=== PATIENT | female | born 1945 | race Caucasian/White ===

== ENCOUNTER 2020-08-20 15:59 | Inpatient (IN) | payer MEDICARE, OTHER ==
[~2020-08-20] VITALS: Ht 170.2 cm; Wt 70.3 kg
--- NOTE | ~2020-08-20 | DS ---
[facility] [address], [place] [address] Draft ADMISSION DATE: 08/21/2020 DISCHARGE DATE: 08/28/2020 REASON FOR ADMISSION: This 75-year-old white woman was evaluated at 04:00 p.m. at [facility] by Dr. Shannon with the onset of sudden lower abdominal pain earlier in the day. Her lactic acid level was elevated to 3.3 with white count of 12.7. A CT scan showed presumed multiple bowel loops with ischemia, possible obstruction, possibly sales representative education courses of an internal hernia or small-bowel volvulus. She is admitted for further evaluation and care. PERTINENT PHYSICAL EXAMINATION: GENERAL: Showed a relatively thin white woman, who was uncomfortable in appearance. Mucous membranes are somewhat dry. Trachea is midline. CHEST: Clear. HEART: Regular, without murmur. ABDOMEN: Scaphoid and nondistended. There is diffuse lower abdominal tenderness. HOSPITAL COURSE: She was immediately given aggressive fluid resuscitation, intravenous antibiotic meropenem and taken directly to operation. She was found to have an adhesive band that would cause torsion of the mesentery of the small bowel with obstruction and ischemia of the small bowel segment that measured more than 3 feet in length. Release of the obstructive adhesion allow for recovery of her bowel. A nasogastric tube that had been placed was removed the following day. She felt markedly better. Nasogastric tube was removed. She was allowed to have liquids, which she had without problem. She was advanced in her diet, but within approximately 24 hours had abdominal distention and vomiting. Abdominal x-ray showed dilated air-filled loops of bowel consistent with ileus. A nasogastric tube ultimately was placed and kept to suction until her bowel recovered. I suspect her issue was that of hyperemic edema of the bowel that had been relieved of obstruction and mesenteric torsion. She was maintained on broad-spectrum antibiotic initially. Ultimately, she had recovery of her bowel function, nasogastric tube able to relieve it and she was begun on a liquid diet and ultimately full and subsequently a solid diet. She began having a fair amount of diarrhea. Stool samples were attempted to be obtained. The empiric treatment with Flagyl seemed to cause decrease of her diarrhea stool. Stool was ultimately sent for assessment, however. By the time of discharge, she is ambulating well, tolerating a regular diet, does not PATIENT NAME: MONROE MILLER DISCHARGE SUMMARY DATE OF : 47 REPORT #: [id number] PHYSICIAN: EMMY DUQUE MD PCP: JESSICA HUTCHINSON REPORT IS CONFIDENTIAL AND NOT TO BE RELEASED WITHOUT AUTHORIZATION [facility] [address], [place] [address] Draft have diarrhea. Has minimal incisional pain managed by a non-opiate medication. She is discharged home in good condition. DISCHARGE MEDICATIONS: 1. Flagyl 250 mg p.o. t.i.d., #20, refill zero. 2. Motrin 600 mg p.o. q.6 h. as needed for pain, #60, no refill. 3. Tylenol 500 mg two tablets p.o. q.6 hours as needed for pain, #60. 4. She will resume her usual medications, which include Pycnogenol 1 cap p.o. daily. 5. Kelp 150 mcg tablet p.o. daily. 6. Potassium gluconate tablet p.o. daily. 7. Vitamin C 1000 mg p.o. daily. 8. Glucosamine chondroitin 1 tablet p.o. daily. 9. Multivitamin one p.o. daily. 10. Tums tablet one p.o. daily. FOLLOWUP PLAN: She is return to see me in approximately a month. She is urged to avoid lifting more than 20 pounds for the next 4 weeks. She will keep Steri-Strips on. She should shower daily. DISCHARGE DIAGNOSIS: 1. Acute abdomen secondary to adhesive band causing internal bowel obstruction with torsion and ischemic bowel, status post emergency laparotomy, relief of obstruction. 2. Postoperative ileus. 3. Postoperative diarrhea as of yet unspecified, suspicion for C difficile, cultures pending. MD HIMA Taylor/JACKYL /[id number] cc: MD Jessica Donnelly PA PATIENT NAME: MONROE MILLER DISCHARGE SUMMARY DATE OF : 47 REPORT #: [id number] PHYSICIAN: EMMY DUQUE MD PCP: JESSICA HUTCHINSON REPORT IS CONFIDENTIAL AND NOT TO BE RELEASED WITHOUT AUTHORIZATION [address] [address] Draft Copies: LUCAS SHANNON MD, LINDA PA ~ PATIENT NAME: MONROE MILLER [place] DISCHARGE SUMMARY DATE OF : 47 REPORT #: [id number] PHYSICIAN: EMMY DUQUE MD PCP: JESSICA HUTCHINSON REPORT IS CONFIDENTIAL AND NOT TO BE RELEASED WITHOUT AUTHORIZATION
--- OUTSIDE RECORDS SUMMARY | ~2020-08-20 | XMS | Encounter Summary ---
Demographics + + + | Address | [address] | | | [place] [address] | + + + | Home Phone | | + + + | Preferred Language | Unknown | + + + | Marital Status | | + + + | Taoist Affiliation | 1069 | + + + | Race | White | + + + | Ethnic Group | Not or | + + + Author + + + | Author | [facility] | | | and [place] | + + + | Organization | [facility] | | | and [place] | + + + | Address | Unknown | + + + | Phone | Unavailable | + + + Support + + + + + | Name | Relationship | Address | Phone | + + + + + | Per Pt None To List | ECON | [id number] | | | | | NA, | | + + + + + | Carmine Bergman | ECON | [address] | | | | | [place] | | | | | [address] | | + + + + + Care Team Providers + +------+ + | Care Construction Coordinator Name | Role | Phone | + +------+ + PCP | Unavailable | + +------+ + Encounter Details +--------+ + + + + | Date | Type | Department | Care Team | Description | +--------+ + + + + | 03/24/ | Hospital | [facility] | Wilfrido Ferro, | | | 2002 | Encounter | MED CTR MP INTRA OP | MD [address] [facility] | | | | | [address] | [place], [place] | | | | | [place], [place] | [address] | | | | | [address] | | | | | | [phone] | | | +--------+ + + + + Social History + +-------+ +--------+------+ | Tobacco Use | Types | Packs/Day | Years | Date | | | | | Used | | + +-------+ +--------+------+ | Never Assessed | | | | | + +-------+ +--------+------+ + + + | Sex Assigned at | Date Recorded | | | | + + + | Not on file | | + + + documented as of this encounter Plan of Treatment Not on filedocumented as of this encounter Visit Diagnoses Not on filedocumented in this encounter"
--- OUTSIDE RECORDS SUMMARY | ~2020-08-20 | XMS | Encounter Summary ---
Demographics + + + | Address | [address] | | | [place] [address] | + + + | Home Phone | | + + + | Preferred Language | Unknown | + + + | Marital Status | | + + + | Pentecostalism Affiliation | 1069 | + + + | Race | White | + + + | Ethnic Group | Not or | + + + Author + + + | Author | [facility] | | | and [place] | + + + | Organization | [facility] | | | and [place] | + + + | Address | Unknown | + + + | Phone | Unavailable | + + + Support + + + + + | Name | Relationship | Address | Phone | + + + + + | Per Pt None To List | ECON | 196008 | | | | | NA, | | + + + + + | Carmine Bergman | ECON | [address] | | | | | [place] | | | | | [address] | | + + + + + Care Team Providers + +------+ + | Care Heel Molder Name | Role | Phone | + +------+ + | No Physician | PCP | Unavailable | + +------+ + Encounter Details +--------+ + + + + | Date | Type | Department | Care Team | Description | +--------+ + + + + | 10/11/ | Orders Only | [facility] | Avinash, Tamar M, | Osteoarthrosis, | | 2012 | | ORTHOPEDIC SURGERY | RN | unspecified whether | | | | [address] [place] | | generalized or | | | | [place], [place] | | localized, pelvic | | | | [address] | | region and thigh | | | | [phone] | | (Primary Dx); Heart | | | | | | murmur; Family | | | | | | history of heart | | | | | | disease in female | | | | | | family member before | | | | | | age 65 | +--------+ + + + + Social [...] Not on filedocumented as of this encounter Results XR Hip Right 1 Vw (10/11/2013 11:47 AM PST) + + | Specimen | + + | | + + + + + | Narrative | Performed At | + + + | [facility] | [place] | | Department [address] [place] [address] | [facility] | | [ rep ct [address]] [ rep [facility] | | st zip] Signed | - IMAGING | | | | | Patient Name: MONROE MILLER Physician: | | | . : 1945 Age: 68 Sex: F Unit #: [id number] | | | Exam Date: 10/11/13 [place] [facility] [place] | | | Report #: [id number] Page: | | | %(RAD)RES..mtdd.print.filter("pg") of %(RAD) | | | RES..mtdd.print.filter("tpg") | | | | | | Accession Number: [id number] | | | RIGHT HIP, 10/11/2013 CLINICAL HISTORY: CALIBRATION | | | STUDY FOR RIGHT HIP ARTHROPLASTY. FINDINGS: A single AP | | | view of the right hip is compared to 09/28/2013. Calibration ball | | | is present. Severe degenerative changes of the right hip are also | | | again demonstrated. There is no change from prior. | | | IMPRESSION: 1. OSTEOARTHRITIS OF THE RIGHT HIP, | | | SIMILAR TO THE PRIOR STUDY. Dictated Date/Time: | | | 10/11/2013 11:47 Transcribed Date/Time: 10/11/2013 12:26 | | | [employer] Processor: <<Signature on File>> | | | | | | Néstor Rust MD10/11/13 1312 <Electronically signed by | | | Néstor Rust MD> Néstor Rust MD 10/11/13 | | | 1147 [employer] Processor: [id number] [email or web address] Ejzgxyssemxel22/19/13 1226 | | | Wilfrido Ferro MD | | + + + + + + + + | Performing | Address | City/State/Zipcode | Phone Number | | Organization | | | | + + + + + | [facility] | [address] | [place] | [phone] | | [facility] | | [address] | | | - IMAGING | | | | + + + + + Basic Metabolic Panel (10/11/2013 10:19 AM PST) + + + + + + | Component | Value | Ref Range | Performed | Pathologist | | | | | At | Signature | + + + + + + | Glucose | 104 | 70 - 109 mg/dL | [facility] | | | | | | [facility] | | | | | | MEDICAL | | | | | | CENTER - | | | | | | LABORATORY | | + + + + + + | Calcium | 9.6 | 8.3 - 10.5 | [facility] | | | | | mg/dL | [facility] | | | | | | MEDICAL | | | | | | CENTER - | | | | | | LABORATORY | | + + + + + + | BUN | 14 | 7 - 18 mg/dL | [facility] | | | | | | [facility] | | | | | | MEDICAL | | | | | | CENTER - | | | | | | LABORATORY | | + + + + + + | Creatinine | 0.62 | 0.60 - 1.30 | [facility] | | | | | mg/dL | [facility] | | | | | | MEDICAL | | | | | | CENTER - | | | | | | LABORATORY | | + + + + + + | Estimated | >60Comment: For | >60 mL/min/A | [facility] | | | GFR | -Americans, | | [facility] | | | | please multiply the | | MEDICAL | | | | result by 1.210 | | CENTER - | | | | This is an estimated GFR | | LABORATORY | | | | and is based on a | | | | | | standard adult | | | | | | body mass (A=1.73m2) and | | | | | | serum creatinine | | | | + + + + + + | BUN/Creatin | 22.6 (H) | 12 - 20 | [facility] | | | ine Ratio | | | [facility] | | | | | | MEDICAL | | | | | | CENTER - | | | | | | LABORATORY | | + + + + + + | Na | 141 | 136 - 149 mEq/L | [facility] | | | | | | [facility] | | | | | | MEDICAL | | | | | | CENTER - | | | | | | LABORATORY | | + + + + + + | K | 4.5 | 3.5 - 5.1 mEq/l | [facility] | | | | | | [facility] | | | | | | MEDICAL | | | | | | CENTER - | | | | | | LABORATORY | | + + + + + + | Cl | 103 | 98 - 109 mEq/l | [facility] | | | | | | [facility] | | | | | | MEDICAL | | | | | | CENTER - | | | | | | LABORATORY | | + + + + + + | CO2 | 31 | 24 - 31 mEq/L | [facility] | | | | | | [facility] | | | | | | MEDICAL | | | | | | CENTER - | | | | | | LABORATORY | | + + + + + + | Anion Gap | 11.5 | 6.0 - 17.0 | [facility] | | | | | | [facility] | | | | | | MEDICAL | | | | | | CENTER - | | | | | | LABORATORY | | + + + + + + + + | Specimen | + + | Blood specimen | | (specimen) | + + + + + + + | Performing | Address | City/[facility]/Zipcode | Phone Number | | Organization | | | | + + + + + | [facility] | [address] | [place] | [phone] | | [facility] | | [address] | | | - LABORATORY | | | | + + + + + | [facility] | [address] | [place] | | | [facility] | | [address], [facility] | | | - LABORATORY | | | | + + + + + CBC with Differential (10/11/2013 10:19 AM PST) + +-------+ + + + | Component | Value | Ref Range | Performed | Pathologist | | | | | At | Signature | + +-------+ + + + | White Blood | 7.0 | 4.0 - 11.0 K/uL | [facility] | | | Cells | | | [facility] | | | | | | MEDICAL | | | | | | CENTER - | | | | | | LABORATORY | | + +-------+ + + + | Red Blood | 4.46 | 3.70 - 5.20 | [facility] | | | Cells | | M/uL | [facility] | | | | | | MEDICAL | | | | | | CENTER - | | | | | | LABORATORY | | + +-------+ + + + | Hemoglobin | 13.7 | 11.5 - 16.0 | [facility] | | | | | gm/dL | [facility] | | | | | | MEDICAL | | | | | | CENTER - | | | | | | LABORATORY | | + +-------+ + + + | Hematocrit | 40.7 | 34.0 - 47.0 % | [facility] | | | | | | [facility] | | | | | | MEDICAL | | | | | | CENTER - | | | | | | LABORATORY | | + +-------+ + + + | MCV | 91.3 | 83.0 - 101.0 fL | [facility] | | | | | | [facility] | | | | | | MEDICAL | | | | | | CENTER - | | | | | | LABORATORY | | + +-------+ + + + | MCH | 30.6 | 28.0 - 35.0 pg | [facility] | | | | | | [facility] | | | | | | MEDICAL | | | | | | CENTER - | | | | | | LABORATORY | | + +-------+ + + + | MCHC | 33.6 | 32.0 - 36.0 | [facility] | | | | | g/dL | [facility] | | | | | | MEDICAL | | | | | | CENTER - | | | | | | LABORATORY | | + +-------+ + + + | RDW-CV | 13.4 | <15.0 % | [facility] | | | | | | [facility] | | | | | | MEDICAL | | | | | | CENTER - | | | | | | LABORATORY | | + +-------+ + + + | Platelet | 191 | 140 - 440 K/uL | [facility] | | | Count | | | [facility] | | | | | | MEDICAL | | | | | | CENTER - | | | | | | LABORATORY | | + +-------+ + + + | % | 66.2 | 45 - 75 % | [facility] | | | Neutrophils | | | [facility] | | | | | | MEDICAL | | | | | | CENTER - | | | | | | LABORATORY | | + +-------+ + + + | % | 26.9 | 20 - 45 % | [facility] | | | Lymphocytes | | | [facility] | | | | | | MEDICAL | | | | | | CENTER - | | | | | | LABORATORY | | + +-------+ + + + | % Monocytes | 4.2 | 4 - 12 % | [facility] | | | | | | [facility] | | | | | | MEDICAL | | | | | | CENTER - | | | | | | LABORATORY | | + +-------+ + + + | % | 1.8 | 0 - 5 % | [facility] | | | Eosinophils | | | [facility] | | | | | | MEDICAL | | | | | | CENTER - | | | | | | LABORATORY | | + +-------+ + + + | % Basophils | 0.9 | 0 - 1 % | [facility] | | | | | | [facility] | | | | | | MEDICAL | | | | | | CENTER - | | | | | | LABORATORY | | + +-------+ + + + | Absolute | 4.6 | 1.5 - 6.6 K/uL | [facility] | | | Neutrophils | | | [facility] | | | | | | MEDICAL | | | | | | CENTER - | | | | | | LABORATORY | | + +-------+ + + + | Absolute | 1.9 | 0.6 - 3.2 K/uL | [facility] | | | Lymphocytes | | | [facility] | | | | | | MEDICAL | | | | | | CENTER - | | | | | | LABORATORY | | + +-------+ + + + | Absolute | 0.3 | 0.0 - 1.0 K/uL | [facility] | | | Monocytes | | | [facility] | | | | | | MEDICAL | | | | | | CENTER - | | | | | | LABORATORY | | + +-------+ + + + | Absolute | 0.1 | 0.0 - 0.4 K/uL | [facility] | | | Eosinophils | | | [facility] | | | | | | MEDICAL | | | | | | CENTER - | | | | | | LABORATORY | | + +-------+ + + + | Absolute | 0.1 | 0.0 - 0.1 K/uL | [facility] | | | Basophils | | | [facility] | | | | | | MEDICAL | | | | | | CENTER - | | | | | | LABORATORY | | + +-------+ + + + + + | Specimen | + + | Blood specimen | | (specimen) | + + + + + + + | Performing | Address | City/State/Zipcode | Phone Number | | Organization | | | | + + + + + | [facility] | [address] | [place] | [phone] | | [facility] | | [address] | | | - LABORATORY | | | | + + + + + | [facility] | [address] | [place] | | | [facility] | | [address], [facility] | | | - LABORATORY | | | | + + + + + documented in this encounter Visit Diagnoses + + | Diagnosis | + + | Osteoarthrosis, unspecified whether generalized or localized, pelvic region and thigh | | - Primary | + + | Heart murmur Undiagnosed cardiac murmurs | + + | Family history of heart disease in female family member before age 65 Family history | | of other cardiovascular diseases | + + documented in this encounter
--- OUTSIDE RECORDS SUMMARY | ~2020-08-20 | XMS | Encounter Summary ---
Demographics + + + | Address | [address] | | | [place] [address] | + + + | Home Phone | | + + + | Preferred Language | Unknown | + + + | Marital Status | | + + + | Amish Affiliation | 1069 | + + + | Race | White | + + + | Ethnic Group | Not or | + + + Author + + + | Author | [facility] | | | and [place] | + + + | Organization | [facility] | | | and [place] | + + + | Address | Unknown | + + + | Phone | Unavailable | + + + Support + + + + + | Name | Relationship | Address | Phone | + + + + + | Per Pt None To List | ECON | [id number] | | | | | NA, | | + + + + + | Carmine Bergman | ECON | [address] | | | | | [place] | | | | | [address] | | + + + + + Care Team Providers + +------+ + | Care Ship'S Carpenter Name | Role | Phone | + +------+ + | No, Physician | PCP | Unavailable | + +------+ + Reason for Visit + + + | Reason | Comments | + + + | Hip Pain | New patient to establish care right hip pain | + + + Evaluate & Treat (Routine) +--------+--------+ + + + + | Status | Reason | Specialty | Diagnoses / | Referred By | Referred To | | | | | Procedures | Contact | Contact | +--------+--------+ + + + + | Closed | | Orthopedic | Diagnoses | Self, | [place], | | | | Surgery | Right hip | Referral, | Wilfrido Roa MD | | | | | pain | MD [facility] | [address] [place] [address] | | | | | | | [place] | | | | | | | [place] [address] | | | | | | | Phone: | | | | | | | [phone] | | | | | | | Fax: | | | | | | | [phone] | +--------+--------+ + + + + Encounter Details +--------+---------+ + + + | Date | Type | Department | Care Team | Description | +--------+---------+ + + + | 09/28/ | Office | [facility] | Wilfrido Ferro, | Right hip pain | | 2012 | Visit | ORTHOPEDIC SURGERY | MD Blane RIVERS | (Primary Dx); | | | | Blane [place] | [place] | Osteoarthritis of | | | | [place] | [id number] | right hip | | | | [address] | | | | | | [phone] | | | +--------+---------+ + + + Social History + +-------+ [...] + + documented as of this encounter Last Filed Vital Signs + + + + + | Vital Sign | Reading | Time Taken | Comments | + + + + + | Blood Pressure | - | - | | + + + + + | Pulse | - | - | | + + + + + | Temperature | 37 C (98.6 F) | 09/28/2013 10:16 AM | | | | | PST | | + + + + + | Respiratory Rate | - | - | | + + + + + | Oxygen Saturation | - | - | | + + + + + | Inhaled Oxygen | - | - | | | Concentration | | | | + + + + + | Weight | 70.8 kg (156 lb) | 09/28/2013 10:16 AM | | | | | PST | | + + + + + | Height | 170.2 cm (5' 7") | 09/28/2013 10:16 AM | | | | | PST | | + + + + + | Body Mass Index | 24.43 | 09/28/2013 10:16 AM | | | | | PST | | + + + + + documented in this encounter Progress Notes Wilfrido Ferro MD - 09/28/2013 12:00 AM PST ORTHOPEDICS [place] [address] FAX: [phone] OFFICE VISIT PATIENT IDENTIFICATION: Paige is a 68-year-old female with the chief complaint of right hip pain. HISTORY OF PRESENT ILLNESS: The patient has had hip pain for a year and a half. She localiz es her pain to the groin, it is weightbearing related, it has been difficult getting out of a chair at times. She has to use her hands to lift her leg. 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 PREVIOUS MEDICAL HISTORY: Significant for no chronic medical problems. MEDICATIONS: Only 1. Ibuprofen. 2. Multivitamin. PREVIOUS SURGERIES: She had right knee arthroscopy in 2001. She had left trigger thumb rele ase in 2002. She had an appendectomy in 1967, hysterectomy in 1986. PRIMARY CARE PHYSICIAN: Evens Simental MD, in [place] FAMILY HISTORY: Father at age 56, liver disease. Mother lived to 85, of unknown cause. She has 3 children, who are healthy. PERSONAL HABITS: Two beers a week, no tobacco. REVIEW OF SYSTEMS EYES: Positive glasses use. EARS, NOSE, THROAT: Negative. RESPIRATORY: Negative. CARDIOVASCULAR: Negative. GASTROINTESTINAL: Negative. GENITOURINARY: Positive night urination. No infections. MUSCULOSKELETAL: As above. SKIN: Negative. NEUROLOGIC: Negative. PSYCHIATRIC: Negative. ENDOCRINE: Negative. CONSTITUTIONAL/SYSTEMIC: Negative. PHYSICAL EXAMINATION VITAL SIGNS: She is 156 pounds, 5 feet 7 inches, BMI 24. EXTREMITIES: She walks with an an talgic gait. Her right hip has about 10 degrees of internal rotation. Attempts at more prov ngozi groin pain. Her leg lengths are equal. She has 5/5 motor strength all muscle groups regina ateral lower extremities. Intact pedal pulses. Intact sensation all dermatomes bilateral lo wer extremities. Her x-ray is reviewed and shows severe and advanced vrtr-ip-wjwa arthrosis of the right hip with subchondral cysts and circumferential osteophytes. DIAGNOSIS: [id number] DEGENERATIVE ARTHRITIS OF THE RIGHT HIP. The natural history and treatment options were discussed at length on today's visit. Total hip arthroplasty, the inherent medical and surgical risks and reasonable expectations for r ecovery were discussed at length today. The different surgical approaches and different uyen ring surfaces were also discussed at length. All questions answered. She very much wishes t o pursue right hip replacement. Wilfrido Ferro MD KW / SHABANA JOB #: [id number] signed by Wilfrido Ferro MD at 09/29/2013 9:05 AM PSTdocumen stephy in this encounter Miscellaneous Notes Miscellaneous - ONBASE SCAN [facility] - 09/28/2013 12:00 AM PST iscellaneous - ONBASE SCAN [facility] - 09/28/2013 12:00 AM PSTEle ctronically signed by Keenan [facility] at 10/03/2013 10:01 AM PSTdocumented in this encounter Plan of Treatment Not on filedocumented as of this encounter Results XR Hip Right 2 + Vw (09/28/2013 11:11 AM PST) + + | Specimen | + + | | + + + + + | Narrative | Performed At | + + + | [facility] | [place] | | [address] [facility] | | [ rep ct street1[address]] [ rep ct [facility] | | st zip] Signed | - IMAGING | | | | | Patient Name: LACY MILLER Physician: | | | . : 1945 Age: 68 Sex: F Unit #: [id number] | | | Exam Date: 09/28/13 Location: [facility] | | | Report #: [id number] Page: | | | %(RAD)RES..mtdd.print.filter("pg") of %(RAD) | | | RES..mtdd.print.filter("tpg") | | | | | | Accession Number: [id number] | | | TWO VIEWS RIGHT HIP CLINICAL HISTORY: HIP PAIN. | | | COMPARISON: None available. FINDINGS: The bones | | | are well mineralized and well aligned. No fracture or dislocation is | | | suspected. The right hip joint is moderately narrowed and | | | demonstrates prominent marginal osteophyte formation. Femoral head | | | contour appears maintained, along with the imaged right sacroiliac | | | joint. A rounded calcification projecting over the imaged right | | | pelvic cavity favors a phlebolith. Soft tissue structures are | | | otherwise unremarkable. IMPRESSION: 1. | | | MODERATE TO SEVERE DEGENERATION OF THE RIGHT HIP. | | | Dictated Date/Time: 09/28/2013 11:11 Transcribed Date/Time: | | | 09/28/2013 11:33 Team Guide: | | | <<Signature on File>> | | | Igor Becerril | | | MD Rodrick09/28/13 2306 <Electronically signed by Igor Mensah MD> | | | Igor Mensah MD 09/28/13 1111 Team Guide: | | | Webmedx [id number]/06/13 1133 Wilfrido Ferro MD | | | | | + + + + + + + + | Performing | Address | City/State/Zipcode | Phone Number | | Organization | | | | + + + + + | [facility] | [address] | [place] | [phone] | | [facility] | | [address] | | | - IMAGING | | | | + + + + + documented in this encounter Visit Diagnoses + + | Diagnosis | + + | Right hip pain - Primary Pain in joint, pelvic region and thigh | + + | Osteoarthritis of right hip Osteoarthrosis, unspecified whether generalized or | | localized, pelvic region and thigh | + + documented in this encounter
--- OUTSIDE RECORDS SUMMARY | ~2020-08-20 | XMS | Encounter Summary ---
Demographics + + + | Address | [address] | | | [place] [address] | + + + | Home Phone | | + + + | Preferred Language | Unknown | + + + | Marital Status | | + + + | Evangelical Affiliation | 1069 | + + + | Race | White | + + + | Ethnic Group | Not or | + + + Author + + + | Author | [facility] | | | and [place] | + + + | Organization | [facility] | | | and [place] | + + + | Address | Unknown | + + + | Phone | Unavailable | + + + Support + + + + + | Name | Relationship | Address | Phone | + + + + + | Per Pt None To List | ECON | [address] | | | | | NA, | | + + + + + | Carmine Bergman | ECON | [address] | | | | | [place] | | | | | [address] | | + + + + + Care Team Providers + +------+ + | Care Aerophysics Engineer Name | Role | Phone | + +------+ + PCP | Unavailable | + +------+ + Encounter Details +--------+ + + + + | Date | Type | Department | Care Team | Description | +--------+ + + + + | 05/12/ | Hospital | [facility] | | | | 1995 | Encounter | MED CTR XRAY [address] | | | | | | [place] | | | | | | [place] [address] | | | | | | [phone] | | | +--------+ + + + [...]
--- OUTSIDE RECORDS SUMMARY | ~2020-08-20 | XMS | Encounter Summary ---
Demographics + + + | Address | [address] | | | [place] [address] | + + + | Home Phone | | + + + | Preferred Language | Unknown | + + + | Marital Status | | + + + | Church Affiliation | 1069 | + + + | Race | White | + + + | Ethnic Group | Not or | + + + Author + + + | Author | [facility] | | | and [place] | [...] Pt None To List | ECON | [address] | | | | | NA, | | + + + + + | Carmine Bergman | ECON | [address] | | | | | [place] | | | | | [address] | | + + + + + Care Team Providers + +------+ + | Care Egg Grader Name | Role | Phone | + +------+ + PCP | Unavailable | + +------+ + Encounter Details +--------+ + + + + | Date | Type | Department | Care Team | Description | +--------+ + + + + | 12/30/ | Hospital | [facility] | Wilfrido Ferro, | | | 2001 | Encounter | MED CTR MP INTRA OP | MD [address] [facility] | | | | | [address] | [place], [place] | | | | | [place], [place] | [address] | | | | | [address] | | | | | | [phone] | | | +--------+ + + + [...]
--- OUTSIDE RECORDS SUMMARY | ~2020-08-20 | XMS | Encounter Summary ---
Demographics + + + | Address | [address] | | | [place] [address] | + + + | Home Phone | | + + + | Preferred Language | Unknown | + + + | Marital Status | | + + + | Yazidism Affiliation | 1069 | + + + | Race | White | + + + | Ethnic Group | Not or | + + + Author + + + | Author | [facility] | | | and [place] | + + + | Organization | [facility] | | | and [place] | + + + | Address | Unknown | + + + | Phone | Unavailable | + + + Support + + + + + | Name | Relationship | Address | Phone | + + + + + | Per Pt None To List | ECON | 613073 | | | | | NA, | | + + + + + | Carmine Bergman | ECON | [address] | | | | | [place] | | | | | [address] | | + + + + + Care Team Providers + +------+ + | Care Oncology Radiation Physician Name | Role | Phone | + +------+ + | Tomas Simental MD | PCP | | + +------+ + Reason for Visit +---------+ + | Reason | Comments | +---------+ + | Post Op | post op right total hip arthroplasty dos: 10/21/2013 *xrays taken | | | today* | +---------+ + Encounter Details +--------+---------+ + + + | Date | Type | Department | Care Team | Description | +--------+---------+ + + + | 12/05/ | Office | [facility] | Wilfrido Ferro, | Hip joint | | 2013 | Visit | ORTHOPEDIC SURGERY | [address] | replacement by other | | | | [address] | [place] | means (Primary Dx) | | | | [place] | [address] | | | | | [address] | | | | | | [phone] | | | +--------+---------+ + + + [...] + + + + | Temperature | - | - | | + + + + + | Respiratory Rate | - | - | | + + + + + | Oxygen Saturation | - | - | | + + + + + | Inhaled Oxygen | - | - | | | Concentration | | | | + + + + + | Weight | 72.1 kg (159 lb) | 12/05/2013 11:31 AM | | | | | PST | | + + + + + | Height | 170.2 cm (5' 7") | 12/05/2013 11:31 AM | | | | | PST | | + + + + + | Body Mass Index | 24.9 | 12/05/2013 11:31 AM | | | | | PST | | + + + + + documented in this encounter Progress Notes Wilfrido Ferro MD - 12/05/2013 12:16 PM PSTPt returns today and is doing excellently s/p right CARO She walks without limp - no cane She has some mild tenderness over the lateral hip to palpation painfree arc of motion xrays excellent alignment and position of components Discussed future followup documented in this encounter Plan of Treatment Not on filedocumented as of this encounter Results XR Pelvis 1 or 2 Vw (12/05/2013 12:21 PM PST) + + | Specimen | + + | | + + + + + | Narrative | Performed At | + + + | [facility] | [place] | | Department [address] [place] | [facility] | | [ rep ct [address]] [ rep ct [facility] | | st zip] Signed | - IMAGING | | | | | Patient Name: MONROE MILLER Tobi Physician: | | | .[birth year] : 1945 Age: 68 Sex: F Unit #: [id number] | | | Exam Date: 12/05/13 [place] [facility] [facility] [place] | | | Report #: [id number] Page: | | | %(RAD)RES..mtdd.print.filter("pg") of %(RAD) | | | RES..mtdd.print.filter("tpg") | | | | | | Accession Number: [id number] | | | PELVIS X-RAY CLINICAL HISTORY: POSTOPERATIVE RIGHT HIP, | | | ARTHROPLASTY. COMPARISON: 10/21/2013. | | | FINDINGS: AP view of the pelvis was obtained. Again | | | visualized is hardware for right hip arthroplasty that remains intact. | | | There are no acute osseous abnormalities. Moderate to advanced | | | degenerative changes are present of the left hip with osteophytosis, | | | subchondral sclerosis and joint space loss. Bone mineralization is | | | normal. IMPRESSION: 1. STABLE RIGHT HIP | | | ARTHROPLASTY. 2. 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 Dictated Date/Time: | | | 12/05/2013 12:21 Transcribed Date/Time: 12/05/2013 13:28 | | | River Transportation Worker: <<Signature on File>> | | | | | | Javier Boles MD12/05/13 2307 <Electronically signed by Javier Boles | | | MD> Javier Boles MD 12/05/13 1221 River [employer] Worker: | | | EXO5 Holnxbjdosccv82/13/14 1328 Wilfrido Ferro MD | | | | | + + + + + + + + | Performing | Address | City/State/Zipcode | Phone Number | | Organization | | | | + + + + + | [facility] | [address] | [place] | [phone] | | [facility] | | [address] | | | - IMAGING | | | | + + + + + documented in this encounter Visit Diagnoses + + | Diagnosis | + + | Hip joint replacement by other means - Primary | + + documented in this encounter
--- OUTSIDE RECORDS SUMMARY | ~2020-08-20 | XMS | Encounter Summary ---
Demographics + + + | Address | [address] | | | [place] [address] | + + + | Home Phone | | + + + | Preferred Language | Unknown | + + + | Marital Status | | + + + | Mu-Ism Affiliation | 1069 | + + + | Race | White | + + + | Ethnic Group | Not or | + + + Author + + + | Author | [facility] | | | and [place] [...] Pt None To List | ECON | [address] | | | | | NA, | | + + + + + | Carmine Bergman | ECON | [address] | | | | | [place] | | | | | [address] | | + + + + + Care Team Providers + +------+ + | Care Fuel Agent Name | Role | Phone | + +------+ + | Tomas Simental MD | PCP | | + +------+ + Reason for Visit + +--------+ + | Reason | Onset | Comments | | | Date | | + +--------+ + | Hip Pain | 07/03/ | Fell | | | 2013 | | + +--------+ + Encounter Details +--------+ + + + + | Date | Type | Department | Care Team | Description | +--------+ + + + + | 07/03/ | Telephone | [facility] | Wilfrido Ferro, | Hip Pain (Fell) | | 2013 | | ORTHOPEDIC SURGERY | [address] | | | | [address] | [place] | | | | | [place] | [address] | | | | | [address] | | | | | | [phone] | | | +--------+ + + + [...] + + documented as of this encounter Miscellaneous Notes Telephone Encounter - Karina Reynolds - 07/05/2014 2:20 PM PDTPatient is scheduled for 07/05/14 at 1300. eleph one Encounter - Leana Kirkland RN - 07/03/2014 2:[address] Ferro elephone Encounter - Leana Kirkland RN - 07/03/2014 2:15 PM PDTPatient called to state she had a Right hip repl acement last year, September 2013, with Dr. Ferro. Last week she fell on her Left hip [place]w ar[place] and now she is having Right Hip/Right Groin Pain. She has been taking ibuprofen for the pain, 2-3 tabs Q 6 hours. She wonders if she needs to come in to see Dr. Ferro regarding this issue. Told patient we would speak to Dr. Ferro when he returns to the office on July 05, we will then call her with instructions. Elec tronically signed by Leana Kirkland RN at 07/03/2014 2:29 PM PDTdocumented in this encounte r Plan of Treatment Not on filedocumented as of this encounter Visit Diagnoses Not on filedocumented in this encounter"
--- OUTSIDE RECORDS SUMMARY | ~2020-08-20 | XMS | Encounter Summary ---
Demographics + + + | Address | [address] | | | [place] [address] | + + + | Home Phone | | + + + | Preferred Language | Unknown | + + + | Marital Status | | + + + | Confucianist Affiliation | 1069 | + + + | Race | White | + + + | Ethnic Group | Not or | + + + Author + + + | Author | [facility] | | | and [place] | + + + | Organization | [facility] | | | and [place] | + + + | Address | Unknown | + + + | Phone | Unavailable | + + + Support + + + + + | Name | Relationship | Address | Phone | + + + + + | Per Pt None To List | ECON | [address] | | | | | NA, | | + + + + + | Carmine Bergman | ECON | [address] | | | | | [place] | | | | | [address] | | + + + + + Care Team Providers + +------+ + | Care Cloth Printing Inspector Name | Role | Phone | + +------+ + PCP | Unavailable | + +------+ + Encounter Details +--------+ + + + + | Date | Type | Department | Care Team | Description | +--------+ + + + + | 11/30/ | Hospital | [facility] | Wilfrido Ferro, | | | 2001 | Encounter | MED CTR XRAY [address] | [address] [facility] | | | | | [place] | [place], [place] | | | | | [place] [address] | [address] | | | | | [phone] | | | +--------+ + + + [...]
--- OUTSIDE RECORDS SUMMARY | ~2020-08-20 | XMS | Encounter Summary ---
Demographics + + + | Address | [address] | | | [place] [address] | + + + | Home Phone [...] + + + | Author | [facility] | | | and [place] | + + + | Organization | [facility] | | | and [place] | + + + | Address | Unknown | + + + | Phone | Unavailable | + + + Support + + + + + | Name | Relationship | Address | Phone | + + + + + | Per Pt None To List | ECON | [id number] | | | | | NA, | | + + + + + | Carmine Bergman | ECON | [address] | | | | | [place] | | | | | [address] | | + + + + + Care Team Providers + +------+ + | Care Engraver Apprentice Decorative Name | Role | Phone | + +------+ + | No, Physician | PCP | Unavailable | + +------+ + Encounter Details +--------+ + + + + | Date | Type | Department | Care Team | Description | +--------+ + + + + | 10/11/ | Hospital | [facility] | Wilfrido Ferro, | Heart murmur; Family | | 2012 | Encounter | MED CTR XRAY [address] | [address] | history of heart | | | | [place] | [place] | disease in female | | | | [place] [address] | [id number] | family member before | | | | [phone] | | age 66; | | | | | | Osteoarthrosis, | | | | | | unspecified whether | | | | | | generalized or | | | | | | localized, pelvic | | | | | | region and thigh | +--------+ + + + + Social [...] + + + | XR HIP RIGHT 1 VW | Routin | 10/11/2013 | Osteoarthrosis, | Results for this | | | e | 11:47 AM | unspecified whether | procedure are in the | | | | PST | generalized or | results section. | | | | | localized, pelvic | | | | | | region and thigh | | + +--------+ + + + | CBC WITH | Routin | 10/11/2013 | | Results for this | | DIFFERENTIAL | e | 10:23 AM | | procedure are in the | | | | PST | | results section. | + +--------+ + + + | BASIC METABOLIC | Routin | 10/11/2013 | | Results for this | | PANEL | e | 10:23 AM | | procedure are in the | | | | PST | | results section. | + +--------+ + + + | CBC WITH | Routin | 10/11/2013 | Heart murmur | Results for this | | DIFFERENTIAL | e | 10:19 AM | Family history of | procedure are in the | | | | PST | heart disease in | results section. | | | | | female family member | | | | | | before age 65 | | + +--------+ + + + | BASIC METABOLIC | Routin | 10/11/2013 | Heart murmur | Results for this | | PANEL | e | 10:19 AM | Family history of | procedure are in the | | | | PST | heart disease in | results section. | | | | | female family member | | | | | | before age 65 | | + +--------+ + + + documented in this encounter Results XR Hip Right 1 Vw (10/11/2013 11:47 AM PST) + + | Specimen | + + | | + + + + + | Narrative | Performed At | + + + | [facility]erg[facility] With [facility] | [place] | | Department [address] [facility] | [facility] | | [ rep ct [address]] [ rep [facility] | | st zip] Signed | - IMAGING | | | | | Patient Name: MONROE MILLER Physician: | | | . : 1945 Age: 68 Sex: F Unit #: [id number] | | | Exam Date: 10/11/13 [place] [facility] [place] | | | Report #: [id number] Page: | | | %(RAD)RES..mtdd.print.filter("pg") of %(RAD) | | | RES..mtdd.print.filter("tpg") | | | | | | Accession Number: [id number] | | | RIGHT HIP, 10/11/2013 CLINICAL [...] Transcribed Date/Time: 10/11/2013 12:26 | | | Stamp Clerk: <<Signature on File>> | | | | | | Néstor Rust MD10/11/13 1312 <Electronically signed by | | | Néstor Rust MD> Néstor Rust MD 10/11/13 | | | 1147 Stamp Clerk: Hmall.ma Iafozffkkkwij45/19/13 1226 | | | Wilfrido Ferro MD | | + + + + + + + + | Performing | Address | City/State/Zipcode | Phone Number | | Organization | | | | + + + + + | [facility] | [address] | [place] | [phone] | | [facility] | | [address] | | | - IMAGING | | | | + + + + + CBC with Differential (10/11/2013 10:23 AM PST) + +-------+ + + + | Component | Value | Ref Range | Performed | Pathologist | | | | | At | Signature | + +-------+ + + + | MANUAL | NO | | [facility] | | | DIFFERENTIA | | | [facility] | | | L ? | | | MEDICAL | | | | | | CENTER - | | | | | | LABORATORY | | + +-------+ + + + | White Blood | 7.0 | 4.0 - 11.0 K/uL | [facility] | | | Cells | | | [facility] | | | | | | MEDICAL | | | | | | CENTER - | | | | | | LABORATORY | | + +-------+ + + + | Red Blood | 4.46 | 3.70 - 5.20 | [facility] | | | Cells | | M/uL | [facility] | | | | | | MEDICAL | | | | | | CENTER - | | | | | | LABORATORY | | + +-------+ + + + | Hemoglobin | 13.7 | 11.5 - 16.0 | [facility] | | | | | gm/dL | [facility] | | | | | | MEDICAL | | | | | | CENTER - | | | | | | LABORATORY | | + +-------+ + + + | Hematocrit | 40.7 | 34.0 - 47.0 % | [facility] | | | | | | [facility] | | | | | | [...] 0.9 | 0 - 1 % | [facility] | | | | | | [facility] | | | | | | MEDICAL | | | | | | CENTER - | | | | | | LABORATORY | | + +-------+ + + + | Absolute | 4.6 | 1.5 - 6.6 K/uL | [facility] | | | Neutrophils | | | [facility] | | | | | | MEDICAL | | | | | | CENTER - | | | | | | LABORATORY | | + +-------+ + + + | Absolute | 1.9 | 0.6 - 3.2 K/uL | [facility] | | | Lymphocytes | | | [facility] | | | | | | MEDICAL | | | | | | CENTER - | | | | | | LABORATORY | | + +-------+ + + + | Absolute | 0.3 | 0.0 - 1.0 K/uL | [facility] | | | Monocytes | | | [facility] | | | | | | MEDICAL | | | | | | CENTER - | | | | | | LABORATORY | | + +-------+ + + + | Absolute | 0.1 | 0.0 - 0.4 K/uL | [facility] | | | Eosinophils | | | [facility] | | | | | | MEDICAL | | | | | | CENTER - | | | | | | LABORATORY | | + +-------+ + + + | Absolute | 0.1 | 0.0 - 0.1 K/uL | [facility] | | | Basophils | | | [facility] | | [...] + | [facility] | [address] | [place] | [phone] | | [facility] | | [address] | | | - LABORATORY | | | | + + + + + | [facility] | [address] | [place] | | | [facility] | | [address] | | | - LABORATORY | | | | + + + + + Basic Metabolic Panel (10/11/2013 10:23 AM PST) + + + + + [...] | | | | mg/dL | [facility] | | | | | | [...] | | | This is an estimated | | LABORATORY | | | | GFR and is based on a | | | | | | standard adult | | | | | | body mass (A=1.73m2) and | | | | | | serum creatinine | | | | + + + + + + | BUN/Creatin | 22.6 (H) | 12 - 20 | [facility] | | | ine Ratio | | | [facility] | | | | | | [...] | 11.5 | 6.0 - 17.0 | [facility] | | | | | | [facility] | | | | | | [...] | + + + + + | [facility] | [address] | [place] | [phone] | | [facility] | | [address] | | | - LABORATORY | | | | + + + + + | [facility] | [address] | [place] | | | [facility] | | [address] | [...] 104 | 70 - 109 mg/dL | [facility] | | | | | | [facility] | | | | | | MEDICAL | | | | | | CENTER - | | | | | | LABORATORY | | + + + + + + | Calcium | 9.6 | 8.3 - 10.5 | [facility] | | | | | mg/dL | [facility] | | | | | | MEDICAL | | | | | | CENTER - | | | | | | LABORATORY | | + + + + + + | BUN | 14 | 7 - 18 mg/dL | [facility] | | | | | | [facility] | | | | | | MEDICAL | | | | | | CENTER - | | | | | | LABORATORY | | + + + + + + | Creatinine | 0.62 | 0.60 - 1.30 | [facility] | | | | | mg/dL | [facility] | | | | | | MEDICAL | | | | | | CENTER - | | | | | | LABORATORY | | + + + + + + | Estimated | >60Comment: For | >60 mL/min/A | [facility] | | | GFR | -Americans, | [...] | ine Ratio | | | [facility] | | | | | | MEDICAL | | | | | | CENTER - | | | | | | LABORATORY | | + + + + + + | Na | 141 | 136 - 149 mEq/L | [facility] | | | | | | [facility] | | | | | | MEDICAL | | | | | | CENTER - | | | | | | LABORATORY | | + + + + + + | K | 4.5 | 3.5 - 5.1 mEq/l | [facility] | | | | | | [facility] | | | | [...] + | [facility] | [address] | [place] | [phone] | | [facility] | | [address] | | | - LABORATORY | | | | + + + + + | [facility] | [address] | [place] | | | [facility] | | [address] [place] [address] | | | - LABORATORY | | [...] | | | Cells | | | [facility] | | | | | | MEDICAL | | | | | | CENTER - | | | | | | LABORATORY | | + +-------+ + + + | Red Blood | 4.46 | 3.70 - 5.20 | [facility] | | | Cells | | M/uL | [facility] | | | | | | MEDICAL | | | | | | CENTER - | | | | | | LABORATORY | | + +-------+ + + + | Hemoglobin | 13.7 | 11.5 - 16.0 | [facility] | | | | | gm/dL | [facility] | | | | [...] | | | Eosinophils | | | [facility] | | | | [...] | | | Neutrophils | | | [facility] | | | | | | MEDICAL | | | | | | CENTER - | | | | | | LABORATORY | | + +-------+ + + + | Absolute | 1.9 | 0.6 - 3.2 K/uL | [facility] | | | Lymphocytes | | | [facility] | | | | | | [...] | | Basophils | | | [facility] | | [...] | + + + + + | [facility] | [address] | [place], [place] | [phone] | | [facility] | | [address] | | | - LABORATORY | | | | + + + + + | [facility] | [address] | [place], [place] | | | [facility] | | [address] [place] [address] | | | - LABORATORY | | | | + + + + + documented in this encounter Visit Diagnoses + + | Diagnosis | + + | Heart murmur Undiagnosed cardiac murmurs | + + | Family history of heart disease in female family member before age 65 Family history | | of other cardiovascular diseases | + + | Osteoarthrosis, unspecified whether generalized or localized, pelvic region and thigh | + + documented in this encounter
--- OUTSIDE RECORDS SUMMARY | ~2020-08-20 | XMS | Encounter Summary ---
Demographics + + + | Address | [address] | | | [place] [address] | + + + | Home Phone | | + + + | Preferred Language | Unknown | + + + | Marital Status | | + + + | Taoist Affiliation | 1069 | + + + | Race | White | + + + | Ethnic Group | Not or | + + + Author + + + | Author | [facility] | | | and [place] | + + + | Organization | [facility] | | | and [place] | + + + | Address | Unknown | + + + | Phone | Unavailable | + + + Support + + + + + | Name | Relationship | Address | Phone | + + + + + | Per Pt None To List | ECON | [address] | | | | | NA, | | + + + + + | Carmine Bergman | ECON | [address] | | | | | [place] | | | | | [address] | | + + + + + Care Team Providers + +------+ + | Care Promotion Officer Name | Role | Phone | + +------+ + | Tomas Simental MD | PCP | | + +------+ + Encounter Details +--------+ + + + + | Date | Type | Department | Care Team | Description | +--------+ + + + + | 07/06/ | Orders Only | [facility] | Wilfrido Ferro, | Other complications | | 2013 | | ORTHOPEDIC SURGERY | [address] | due to internal | | | | [address] [place] | [place] | joint prosthesis | | | | [place] | [phone] | ([facility]) (Primary Dx) | | | | [address] | | | | | | [phone] | | | +--------+ + + + [...] | Procedure Note | + + | Joaquin, Rad Results In - 07/07/2014 1:47 PM PDT [...] + | MISCELLANEOUS LAB | | | [phone] | + +---------+ + + | MISCELANIOUS LAB | | | [phone] | + +---------+ + + documented in this encounter Visit Diagnoses + + | Diagnosis | + + | 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
--- OUTSIDE RECORDS SUMMARY | ~2020-08-20 | XMS | Encounter Summary ---
Demographics + + + | Address | [address] | | | [place] [address] | + + + | Home Phone | | + + + | Preferred Language | Unknown | + + + | Marital Status | | + + + | Nondenominational Affiliation | 1069 | + + + | Race | White | + + + | Ethnic Group | Not or | + + + Author + + + | Author | [facility] | | | and [place] | + + + | Organization | [facility] | | | and [place] | + + + | Address | Unknown | + + + | Phone | Unavailable | + + + Support + + + + + | Name | Relationship | Address | Phone | + + + + + | Per Pt None To List | ECON | [id number] | | | | | NA, | | + + + + + | Carmine Bergman | ECON | [address] | | | | | [place] | | | | | [address] | | + + + + + Care Team Providers + +------+ + | Care Yarn Handler Name | Role | Phone | + +------+ + | No, Physician | PCP | Unavailable | + +------+ + Encounter Details +--------+ + + + + | Date | Type | Department | Care Team | Description | +--------+ + + + + | 09/28/ | Hospital | [facility] | Wilfrido Ferro, | Right hip pain | | 2013 | Encounter | MED CTR XRAY [address] | [address] [facility] | | | | | [place] | [place], [place] | | | | | [place] [address] | [address] | | | | | [phone] | | | +--------+ + + + [...] RIGHT 2 + VW | Routin | 09/28/2013 | Right hip pain | Results for this | | | e | 11:11 AM | | procedure are in the | | | | PST | | results section. | + +--------+ + + + documented in this encounter Results XR Hip Right 2 + Vw (09/28/2013 11:11 AM PST) + + | Specimen | + + | | + + + + + | Narrative | Performed At | + + + | [facility] | [place] | | Department [address] [place] [address] | [facility] | | [ rep ct street1+2] [ rep ct [facility] | | st zip] Signed | - IMAGING | | | | | Patient Name: LACY MILLER Physician: | | | WILL. : 1945 Age: 68 Sex: F Unit #: [id number] | | | Exam Date: 09/28/13 [place] [facility] [place] | | | Report #: [id number] Page: | | | %(RAD)RES..mtdd.print.filter("pg") of %(RAD) | | | RES..mtdd.print.filter("tpg") | | | | | | Accession Number: [id number] | | | TWO VIEWS RIGHT HIP [...] Transcribed Date/Time: | | | 09/28/2013 11:33 Safety And Security Officer: MCKENZIE | | | <<Signature on File>> | | | Igor Becerril | | Mindi Mensah MD09/28/13 2306 <Electronically signed by Igor Mensah MD> | | | Igor Mensah MD 09/28/13 1111 Safety And Security Officer: | | | MexxBooksmedx Hyytedtypbfmh10/06/13 1133 Wilfrido Ferro MD | | | | | + + + + + + + + | Performing | Address | City/State/Zipcode | Phone Number | | Organization | | | | + + + + + | [facility] | [address] | [place] | [phone] | | [facility] | | [address] | | | - IMAGING | | | | + + + + + documented in this encounter Visit Diagnoses + + | Diagnosis | + + | Right hip pain Pain in joint, pelvic region and thigh | + + documented in this encounter
--- OUTSIDE RECORDS SUMMARY | ~2020-08-20 | XMS | Encounter Summary ---
Demographics + + + | Address | [address] | | | [place] [address] | + + + | Home Phone | | + + + | Preferred Language | Unknown | + + + | Marital Status | | + + + | Judaism Affiliation | 1069 | + + + | Race | White | + + + | Ethnic Group | Not or | + + + Author + + + | Author | [facility] | | | and [place] | + + + | Organization | [facility] [place] | | | and [place] | + + + | Address | Unknown | + + + | Phone | Unavailable | + + + Support + + + + + | Name | Relationship | Address | Phone | + + + + + | Per Pt None To List | ECON | 217387 | | | | | NA, | | + + + + + | Carmine Bergman | ECON | [address] | | | | | [place] | | | | | [address] | | + + + + + Care Team Providers + +------+ + | Care Game Agent Name | Role | Phone | + +------+ + | Tomas Simental MD | PCP | | + +------+ + Reason for Visit + + + | Reason | Comments | + + + | Hip Pain | Follow Up Right Hip Groin Pain DOS: 09/2013 *XRAY* | + + + Encounter Details +--------+---------+ + + + | Date | Type | Department | Care Team | Description | +--------+---------+ + + + | 07/07/ | Office | [facility] | Wilfrido Ferro, | S/P total hip | | 2013 | Visit | ORTHOPEDIC SURGERY | [address] | arthroplasty | | | | [address] | [place] | (Primary Dx) | | | | [place] | [address] | | | | | [address] | | | | | | [phone] | | | +--------+---------+ + + + [...] encounter Progress Notes Wilfrido Ferro MD - 07/07/2014 4:32 PM PDTPatient is status post right total knee arthro plasty last September She has done very well over time however last week she took a fall landing on her left side She started having right-sided hip pain It was bad enough that she was worried she broke something She used a walker for awhile She is much better now On exam she is walking without limp painfree arc of motion No trochanteric tenderness Leg lengths good xrays show excellent alignment and position of components No fractures Pt is given reassurance today I anticipate continued improvement over time Will return next routine total hip follow up documented in this encounter Plan of Treatment Not on filedocumented as of this encounter Visit Diagnoses + + | Diagnosis | + + | S/P total hip arthroplasty - Primary Hip joint replacement by other means | + + documented in this encounter
--- OUTSIDE RECORDS SUMMARY | ~2020-08-20 | XMS | Encounter Summary ---
Demographics + + + | Address | [address] | | | [place] [address] | + + + | Home Phone | | + + + | Preferred Language | Unknown | + + + | Marital Status | | + + + | Voodoo Affiliation | 1069 | + + + | Race | White | + + + | Ethnic Group | Not or | + + + Author + + + | Author | [facility] | | | and [place] | [...] Pt None To List | ECON | 657633 | | | | | NA, | | + + + + + | Carmine Bergman | ECON | [address] | | | | | [place] | | | | | [address] | | + + + + + Care Team Providers + +------+ + | Care Heating And Ventilation Engineer Name | Role | Phone | + +------+ + PCP | Unavailable | + +------+ + Encounter Details +--------+ + + + + | Date | Type | Department | Care Team | Description | +--------+ + + + + | 12/03/ | Hospital | [facility] | Wilfrido Ferro, | | | 2001 | Encounter | MED CTR XRAY [address] | [address] [facility] | | | | | [place] | [place], [place] | | | | | [place] [address] | [address] | | | | | [phone] | | | +--------+ + + + [...]
--- OUTSIDE RECORDS SUMMARY | ~2020-08-20 | XMS | Encounter Summary ---
Demographics + + + | Address | [address] | | | [place] [address] | + + + | Home Phone | | + + + | Preferred Language | Unknown | + + + | Marital Status | | + + + | Presybeterian Affiliation | 1069 | + + + | Race | White | + + + | Ethnic Group | Not or | + + + Author + + + | Author | [facility] | | | and [place] | + + + | Organization | [facility] | | | and [place] | + + + | Address | Unknown | + + + | Phone | Unavailable | + + + Support + + + + + | Name | Relationship | Address | Phone | + + + + + | Per Pt None To List | ECON | [address] | | | | | NA, | | + + + + + | Carmine Bergman | ECON | [address] | | | | | [place] | | | | | [address] | | + + + + + Care Team Providers + +------+ + | Care Restaurant Area Manager Name | Role | Phone | + +------+ + PCP | Unavailable | + +------+ + Encounter Details +--------+ + + + + | Date | Type | Department | Care Team | Description | +--------+ + + + + | 12/03/ | Hospital | [facility] | Wilfrido Ferro, | | | 2001 | Encounter | MED CTR XRAY [address] | [address] [facility] | | | | | [place] | [place], [place] | | | | | [place] [address] | [address] | | | | | [phone] | | | +--------+ + + + [...]
--- OUTSIDE RECORDS SUMMARY | ~2020-08-20 | XMS | Encounter Summary ---
Demographics + + + | Address | [address] | | | [place] [address] | + + + | Home Phone | | + + + | Preferred Language | Unknown | + + + | Marital Status | | + + + | Samaritan Affiliation | 1069 | + + + | Race | White | + + + | Ethnic Group | Not or | + + + Author + + + | Author | [facility] | | | and [place] | + + + | Organization | [facility] | | | and [place] | + + + | Address | Unknown | + + + | Phone | Unavailable | + + + Support + + + + + | Name | Relationship | Address | Phone | + + + + + | Per Pt None To List | ECON | [address] | | | | | NA, | | + + + + + | Carmine Bergman | ECON | [address] | | | | | [place] | | | | | [address] | | + + + + + Care Team Providers + +------+ + | Care Sales Engagement Manager Name | Role | Phone | + +------+ + PCP | Unavailable | + +------+ + Encounter Details +--------+ + + + + | Date | Type | Department | Care Team | Description | +--------+ + + + + | 11/30/ | Hospital | [facility] | Wilfrido Ferro, | | | 2001 | Encounter | MED CTR XRAY [address] | [address] [facility] | | | | | [place] | [place], [place] | | | | | [place] [address] | [address] | | | | | [phone] | | | +--------+ + + + [...]
--- OUTSIDE RECORDS SUMMARY | ~2020-08-20 | XMS | Encounter Summary ---
Demographics + + + | Address | [address] | | | [place] [address] | + + + | Home Phone [...] | Author | [facility] | | | and [place] | + + + | Organization | [facility] [place] | | | and [place] | + + + | Address | Unknown | + + + | Phone | Unavailable | + + + Support + + + + + | Name | Relationship | Address | Phone | + + + + + | Per Pt None To List | ECON | 6[address] | | | | | NA, | | + + + + + | Carmine Bergman | ECON | [address] | | | | | [place] | | | | | [address] | | + + + + + Care Team Providers + +------+ + | Care Tool Tender Name | Role | Phone | + [...] + | 07/03/ | Telephone | [facility] | Wilfrido Ferro, | Hip Pain ([place]) | | 2013 | | ORTHOPEDIC SURGERY | [address] | | | | [address] | [place] | | | | | [place] | [address] | | | | | [address] | | | | | | [phone] | | | +--------+ + + + [...]
--- OUTSIDE RECORDS SUMMARY | ~2020-08-20 | XMS | Encounter Summary ---
Demographics + + + | Address | [address] | | | [place] [address] | + + + | Home Phone | | + + + | Preferred Language | Unknown | + + + | Marital Status | | + + + | Tenriism Affiliation | 1069 | + + + | Race | White | + + + | Ethnic Group | Not or | + + + Author + + + | Author | [facility] | | | and [place] | + + + | Organization | [facility] | | | and [place] | + + + | Address | Unknown | + + + | Phone | Unavailable | + + + Support + + + + + | Name | Relationship | Address | Phone | + + + + + | Per Pt None To List | ECON | [address] | | | | | NA, | | + + + + + | Carmine Bergman | ECON | [address] | | | | | [place] | | | | | [address] | | + + + + + Care Team Providers + +------+ + | Care Parking Lot Attendant And Cashier Name | Role | Phone | + +------+ + | Tomas Simental MD | PCP | | + +------+ + Encounter Details +--------+ + + + + | Date | Type | Department | Care Team | Description | +--------+ + + + + | 12/05/ | Hospital | [facility] | Wilfrido Ferro, | Hip joint | | 2013 | Encounter | MED CTR XRAY [address] | [address] | replacement by other | | | | [place] | [place] | means | | | | [place] [address] | [id number] | | | | | [phone] | | | +--------+ + + + [...] + +--------+ + + + | XR PELVIS 1 OR 2 VW | Routin | 12/05/2013 | Hip joint | Results for this | | | e | 12:21 PM | replacement by other | procedure are in the | | | | PST | means | results section. | + +--------+ + + + documented in this encounter Results XR Pelvis 1 or 2 Vw (12/05/2013 12:21 PM PST) + + | Specimen | + + | | + + + + + | Narrative | Performed At | + + + | [facility] | PONTIAC | | Department [address], [place] | [facility] | | [ rep [address]] [ rep [facility] | | st zip] Signed | - IMAGING | | | | | Patient Name: MONROE MILLER Physician: | | | . : 1945 Age: 68 Sex: F Unit #: [id number] | | | Exam Date: 12/05/13 Location: [facility] | | | Report #: [id number] Page: | | | %(RAD)RES..mtdd.print.filter("pg") of %(RAD) | | | RES..mtdd.print.filter("tpg") | | | | | | Accession Number: [id number] | | | PELVIS X-RAY CLINICAL HISTORY: [...] Transcribed Date/Time: 12/05/2013 13:28 | | | Side Panel Padder: <<Signature on File>> | | | | | | Javier Boles MD12/05/13 2307 <Electronically signed by Javier Boles | | | MD> Javier Boles MD 12/05/13 1221 Side Panel Padder: | | | [employer] Jitjcnkqsifgk55/13/14 1328 Wilfrido Ferro MD | | | | | + + + + + + + + | Performing | Address | City/State/Zipcode | Phone Number | | Organization | | | | + + + + + | [address] | [address] | [place] | [phone] | | [facility] | | [address] | | | - IMAGING | | | | + + + + + documented in this encounter Visit Diagnoses + + | Diagnosis | + + | Hip joint replacement by other means | + + documented in this encounter
--- OUTSIDE RECORDS SUMMARY | ~2020-08-20 | XMS | Clinical Summary ---
Demographics + + + | Address | [address] | | | [place] [address] | + + + | Home Phone | | + + + | Preferred Language | Unknown | + + + | Marital Status | | + + + | Hindu Affiliation | 1069 | + + + | Race | White | + + + | Ethnic Group | Not or | + + + Author + + + | Author | [facility] | | | and [place] | + + + | Organization | [facility] [place] | | | and [place] | + + + | Address | Unknown | + + + | Phone | Unavailable | + + + Support + + + + + | Name | Relationship | Address | Phone | + + + + + | Per Pt None To List | ECON | [address] | | | | | NA, | | + + + + + | Carmine Bergman | ECON | [address] | | | | | [place] | | | | | [address] | | + + + + + Care Team Providers + +------+ + | Care Pneumatic Tool Operator Name | Role | Phone | + [...] +--------+ +---------+--------+ | MEDICARE | MEDICA | [id number] | 03/23/20 | [phone] | | Medica | | | RE | | 11-Pre | 5 | | re | | | PART A | | sent | | | | | | AND B | | | | | | + +--------+ +--------+ +---------+--------+ | [employer] | TRANSA | [id number] | | | | Indemn | | [...] Person | Self | [birth year] | [address] | | | al/Fam | | 1945 | [phone] | [place] | | | [place] | | | 9 (Home) | [address] | + +--------+ +--------+ + + | Lacy Gibson | Third | Self | [birth year] | | [address] | | | Alliance Party | | 1945 | [phone] | [place] | | | [place] | | | 9 (Home) | [address] | | | ity | | | | | + +--------+ +--------+ + + Advance Directives + + + + + | Type | Date Recorded | Patient | Explanation | | | | Manager Collection | | + + + + + | Power of | | | | | Certified Pathology Assistant | | | | + + + + + | Advance | 07/07/2014 12:38 | | | | Directive | PM | | | + + + + +
--- OUTSIDE RECORDS SUMMARY | ~2020-08-20 | XMS | Encounter Summary ---
Demographics + + + | Address | [address] | | | [place] [address] | + + + | Home Phone | | + + + | Preferred Language | Unknown | + + + | Marital Status | | + + + | Amish Affiliation | 1069 | + + + | Race | White | + + + | Ethnic Group | Not or | + + + Author + + + | Author | [facility] | | | and [place] | + + + | Organization | [facility] | | | and [place] | + + + | Address | Unknown | + + + | Phone | Unavailable | + + + Support + + + + + | Name | Relationship | Address | Phone | + + + + + | Per Pt None To List | ECON | [address] | | | | | NA, | | + + + + + | Carmine Bergman | ECON | [address] | | | | | [place] | | | | | [address] | | + + + + + Care Team Providers + +------+ + | Care Fundraising Consultant Name | Role | Phone | + +------+ + | Tomas Simental MD | PCP | | + +------+ + Encounter Details +--------+ + + + + | Date | Type | Department | Care Team | Description | +--------+ + + + + | 07/07/ | Hospital | 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
--- OUTSIDE RECORDS SUMMARY | ~2020-08-20 | XMS | Encounter Summary ---
Demographics + + + | Address | [address] | | | [place] [address] | + + + | Home Phone | | + + + | Preferred Language | Unknown | + + + | Marital Status | | + + + | Jewish Affiliation | 1069 | + + + | Race | White | + + + | Ethnic Group | Not or | + + + Author + + + | Author | [facility] | | | and [place] | + + + | Organization | [facility] | | | and [place] | + + + | Address | Unknown | + + + | Phone | Unavailable | + + + Support + + + + + | Name | Relationship | Address | Phone | + + + + + | Per Pt None To List | ECON | [address] | | | | | NA, | | + + + + + | Carmine Bergman | ECON | [address] | | | | | [place] | | | | | [address] | | + + + + + Care Team Providers + +------+ + | Care Head Teacher Name | Role | Phone | + +------+ + PCP | Unavailable | + +------+ + Encounter Details +--------+ + + + + | Date | Type | Department | Care Team | Description | +--------+ + + + + | 05/12/ | Hospital | [facility] | | | | 1995 | Encounter | MED CTR XRAY [address] | | | | | | [place] | | | | | | [place] [address] | | | | | | [phone] | | | +--------+ + + + [...]
--- OUTSIDE RECORDS SUMMARY | ~2020-08-20 | XMS | Encounter Summary ---
Demographics + + + | Address | [address] | | | [place] [address] | + + + | Home Phone | | + + + | Preferred Language | Unknown | + + + | Marital Status | | + + + | Alevism Affiliation | 1069 | + + + | Race | White | + + + | Ethnic Group | Not or | + + + Author + + + | Author | [facility] | | | and [place] | + + + | Organization | [facility] | | | and [place] | + + + | Address | Unknown | + + + | Phone | Unavailable | + + + Support + + + + + | Name | Relationship | Address | Phone | + + + + + | Per Pt None To List | ECON | [address] | | | | | NA, | | + + + + + | Carmine Bergman | ECON | [address] | | | | | [place] | | | | | [address] | | + + + + + Care Team Providers + +------+ + | Care Master Ocean Yacht Name | Role | Phone | + +------+ + | Tomas Simental MD | PCP | | + +------+ + Encounter Details +--------+ + + + + | Date | Type | Department | Care Team | Description | +--------+ + + + + | 12/05/ | Hospital | [facility] | Wilfrido Ferro, | Hip joint | | 2013 | Encounter | MED CTR XRAY [address] | [address] | replacement by other | | | | [place] | [place] | means | | | | [place] [address] | [id number] | | | | | [phone] | | | +--------+ + + + [...] Performed At | + + + | [facility] | [place] | | Department [address], [place] | [facility] | | [ rep [address]] [ rep [facility] | | st zip] Signed | - IMAGING | | | | | Patient Name: MONROE MILLER Physician: | | | . : 1945 Age: 68 Sex: F Unit #: [id number] | | | Exam Date: 12/05/13 Location: [facility] | | | Report #: [id number] Page: | | | %(RAD)RES..mtdd.print.filter("pg") of %(RAD) | | | RES..mtdd.print.filter("tpg") | | | | | | Accession Number: [id number] | | | PELVIS X-RAY CLINICAL HISTORY: [...] Transcribed Date/Time: 12/05/2013 13:28 | | | Bagging Salvager: <<Signature on File>> | | | | | | Javier Boles MD12/05/13 2307 <Electronically signed by Javier Boles | | | MD> Javier Boles MD 12/05/13 1221 Bagging Salvager: | | | [employer] Uorfiwrlitjvg83/13/14 1328 Wilfrido Ferro MD | | | | | + + + + + + + + | Performing | Address | City/State/Zipcode | Phone Number | | Organization | | | | + + + + + | [address] | [address] | [place] | [phone] | | [facility] | | [address] | | | - IMAGING | | | | + + + + + documented in this encounter Visit Diagnoses + + | Diagnosis | + + | Hip joint replacement by other means | + + documented in this encounter
--- OUTSIDE RECORDS SUMMARY | ~2020-08-20 | XMS | Encounter Summary ---
Demographics + + + | Address | [address] | | | [place] [address] | + + + | Home Phone | | + + + | Preferred Language | Unknown | + + + | Marital Status | | + + + | Zoroastrian Affiliation | 1069 | + + + | Race | White | + + + | Ethnic Group | Not or | + + + Author + + + | Author | [facility] | | | and [place] | + + + | Organization | [facility] | | | and [place] | + + + | Address | Unknown | + + + | Phone | Unavailable | + + + Support + + + + + | Name | Relationship | Address | Phone | + + + + + | Per Pt None To List | ECON | [address] | | | | | NA, | | + + + + + | Carmine Bergman | ECON | [address] | | | | | [place] | | | | | [address] | | + + + + + Care Team Providers + +------+ + | Care School Janitor Name | Role | Phone | + [...] + + | 07/07/ | Office | [facility] | Wilfrido Ferro, | S/P total hip | | 2013 | Visit | ORTHOPEDIC SURGERY | [address] | arthroplasty | | | | [address] | [place] | (Primary Dx) | | | | [place] | [address] | | | | | [address] | | | | | | [phone] | | | +--------+---------+ + + + [...]
--- OUTSIDE RECORDS SUMMARY | ~2020-08-20 | XMS | Clinical Summary ---
Demographics + + + | Address | [address] | | | [place] [address] | + + + | Home Phone | | + + + | Preferred Language | Unknown | + + + | Marital Status | | + + + | Gnosticism Affiliation | 1069 | + + + | Race | White | + + + | Ethnic Group | Not or | + + + Author + + + | Author | [facility] | | | and [place] | + + + | Organization | [facility] | | | and [place] | + + + | Address | Unknown | + + + | Phone | Unavailable | + + + Support + + + + + | Name | Relationship | Address | Phone | + + + + + | Per Pt None To List | ECON | [address] | | | | | NA, | | + + + + + | Carmine Bergman | ECON | [address] | | | | | [place] | | | | | [address] | | + + + + + Care Team Providers + +------+ + | Care Promotions Assistant Name | Role | Phone | + [...] +--------+ +---------+--------+ | MEDICARE | MEDICA | [id number] | 03/23/20 | [phone] | | Medica | | | RE | | 11-Pre | 5 | | re | | | PART A | | sent | | | | | | AND B | | | | | | + +--------+ +--------+ +---------+--------+ | [employer] | TRANSA | [id number] | | | | Indemn | | [...] Person | Self | [birth year] | | [address] | | | al/Fam | | 1945 | [phone] | [place], [place] | | | [place] | | | 9 (Home) | [address] | + +--------+ +--------+ + + | Lacy Gibson | Third | Self | [birth year] | | [address] | | | Libertarian | | 1945 | [phone] | [place] [place], [place] | | | [place] | | | 9 (Home) | [address] | | | ity | | | | | + +--------+ +--------+ + + Advance Directives + + + + + | Type | Date Recorded | Patient | Explanation | | | | Reserves Clerk | | + + + + + | Power of | | | | | Manager Of Regulatory Affairs | | | | + + + + + | Advance | 07/07/2014 12:38 | | | | Directive | PM | | | + + + + +
--- OUTSIDE RECORDS SUMMARY | ~2020-08-20 | XMS | Encounter Summary ---
Demographics + + + | Address | [address] | | | [place] [address] | + + + | Home Phone [...] Author | [facility] | | | and [...] Pt None To List | ECON | [id number] | | | | | NA, | | + + + + + | Carmine Bergman | ECON | [address] | | | | | [place] | | | | | [address] | | + + + + + Care Team Providers + +------+ + | Care Protective Services Case Worker Name | Role | Phone | + [...] unspecified whether | | | | [address] [place] | | generalized or | | | | [place], [place] | | localized, pelvic | | | | [address] | | region and thigh | | | | [phone] | | (Primary Dx); Heart | | [...] Performed At | + + + | [facility] | [place] | | Department [address] [place] [address] | [facility] | | [ rep [address]] [ rep [facility] | | st zip] Signed | - IMAGING | | | | | Patient Name: MONROE MILLER Physician: | | | . : 1945 Age: 68 Sex: F Unit #: [id number] | | | Exam Date: 10/11/13 Location: [facility] | | | Report #: [id number] Page: | | | %(RAD)RES..mtdd.print.filter("pg") of %(RAD) | | | RES..mtdd.print.filter("tpg") | | | | | | Accession Number: [id number] | | | RIGHT HIP, 10/11/2013 CLINICAL [...] Transcribed Date/Time: 10/11/2013 12:26 | | | Lay Out Former: <<Signature on File>> | | | | | | Néstor Rust MD10/11/13 1312 <Electronically signed by | | | Néstor Rust MD> Néstor Rust MD 10/11/13 | | | 1147 Lay Out Former: Choisr Acddyvknlnxwt67/19/13 1226 | | | Wilfrido Ferro MD | | + + + + + + + + | Performing | Address | City/State/Zipcode | Phone Number | | Organization | | | | + + + + + | [facility] | [address] | [place] | [phone] | | [facility] | | [address] | | | - IMAGING | | [...] + + | Performing | Address | City/[facility]/Zipcode | Phone Number | | Organization | | | | + + + + + | [facility] | [address] | [place] | [phone] | | [facility] | | [address] | | | - LABORATORY | | | | + + + + + | [facility] | [address] | [place] | | | [facility] | | [address], [facility] | | | - LABORATORY | | [...] | | | Cells | | | [facility] | | | | | | MEDICAL | | | | | | CENTER - | | | | | | LABORATORY | | + +-------+ + + + | Red Blood | 4.46 | 3.70 - 5.20 | [facility] | | | Cells | | M/uL | [facility] | | | | | | MEDICAL [...] | | Basophils | | | [facility] | | | | | | MEDICAL [...] + | [facility] | [address] | [place] | [phone] | | [facility] | | [address] | | | - LABORATORY | | | | + + + + + | [facility] | [address] | [place] | | | [facility] | | [address], [facility] | | | - LABORATORY | | [...]
--- OUTSIDE RECORDS SUMMARY | ~2020-08-20 | XMS | Encounter Summary ---
Demographics + + + | Address | [address] [address] | | | [place] [address] | + + + | Home Phone | | + + + | Preferred Language | Unknown | + + + | Marital Status | | + + + | Temple Affiliation | 1069 | + + + | Race | White | + + + | Ethnic Group | Not or | + + + Author + + + | Author | [facility] | | | and [place] | + + + | Organization | [facility] | | | and [place] | + + + | Address | Unknown | + + + | Phone | Unavailable | + + + Support + + + + + | Name | Relationship | Address | Phone | + + + + + | Per Pt None To List | ECON | [address] | | | | | NA, | | + + + + + | Carmine Bergman | ECON | [address] | | | | | [place] | | | | | [address] | | + + + + + Care Team Providers + +------+ + | Care Soft Metals Hand Engraver Name | Role | Phone | + +------+ + | Tomas Simental MD | PCP | | + +------+ + Encounter Details +--------+ + + + + | Date | Type | Department | Care Team | Description | +--------+ + + + + | 12/05/ | Hospital | [facility] | Wilfrido Ferro, | Hip joint | | 2013 | Encounter | MED CTR XRAY [address] | replacement by other | | | | [place] | [place] | means | | | | [place] [address] | [id number] | | | | | [phone] | | | +--------+ + + + [...] At | + + + | [facility] | [place] | | Department [address], [place] | [facility] | | [ rep [address]] [ rep [facility] | | st zip] Signed | - IMAGING | | | | | Patient Name: MONROE MILLER Physician: | | | . : 1945 Age: 68 Sex: F Unit #: [id number] | | | Exam Date: 12/05/13 [place] [facility] | | | Report #: [id number] Page: | | | %(RAD)RES..mtdd.print.filter("pg") of %(RAD) | | | RES..mtdd.print.filter("tpg") | | | | | | Accession Number: [id number] | | | PELVIS X-RAY CLINICAL HISTORY: [...] Transcribed Date/Time: 12/05/2013 13:28 | | | Public Relations Consultant: <<Signature on File>> | | | | | | Javier Boles MD12/05/13 2307 <Electronically signed by Javier Boles | | | MD> Javier Boles MD 12/05/13 1221 Public Relations Consultant: | | | [email or web address] Ayjjhjdwyzoqs76/13/14 1328 Wilfrido Ferro MD | | | | | + + + + + + + + | Performing | Address | City/State/Zipcode | Phone Number | | Organization | | | | + + + + + | [facility] | [address] | [place] | [phone] | | [facility] | | [address] | | | - IMAGING | | | | + + + + + documented in this encounter Visit Diagnoses + + | Diagnosis | + + | Hip joint replacement by other means | + + documented in this encounter
--- OUTSIDE RECORDS SUMMARY | ~2020-08-20 | XMS | Encounter Summary ---
Demographics + + + | Address | [address] | | | [place] [address] | + + + | Home Phone | | + + + | Preferred Language | Unknown | + + + | Marital Status | | + + + | Faith Affiliation | 1069 | + + + | Race | White | + + + | Ethnic Group | Not or | + + + Author + + + | Author | [facility] | | | and [place] | + + + | Organization | [facility] | | | and [place] | + + + | Address | Unknown | + + + | Phone | Unavailable | + + + Support + + + + + | Name | Relationship | Address | Phone | + + + + + | Per Pt None To List | ECON | 098253 | | | | | NA, | | + + + + + | Carmine Bergman | ECON | [address] | | | | | [place] | | | | | [address] | | + + + + + Care Team Providers + +------+ + | Care Jitterbug Operator Name | Role | Phone | + +------+ + | No Physician | PCP | Unavailable | + +------+ + Encounter Details +--------+ + + + + | Date | Type | Department | Care Team | Description | +--------+ + + + + | 10/11/ | Orders Only | [facility] | Aivnash, Tamar M, | Osteoarthrosis, | | 2012 | | ORTHOPEDIC SURGERY | RN | unspecified whether | | | | [address] [place] | | generalized or | | | | [place], [place] | | localized, pelvic | | | | [address] | | region and thigh | | | | [phone] | | (Primary Dx); Heart | | [...] Performed At | + + + | [facility] | [place] | | Department [address] [place] [address] | [facility] | | [ rep [address]] [ rep [facility] | | st zip] Signed | - IMAGING | | | | | Patient Name: MONROE MILLER Physician: | | | . : 1945 Age: 68 Sex: F Unit #: [id number] | | | Exam Date: 10/11/13 Location: [facility] | | | Report #: [id number] Page: | | | %(RAD)RES..mtdd.print.filter("pg") of %(RAD) | | | RES..mtdd.print.filter("tpg") | | | | | | Accession Number: [id number] | | | RIGHT HIP, 10/11/2013 CLINICAL [...] Transcribed Date/Time: 10/11/2013 12:26 | | | Disability Attorney: <<Signature on File>> | | | | | | Néstor Rust MD10/11/13 1312 <Electronically signed by | | | Néstor Rust MD> Néstor Rust MD 10/11/13 | | | 1147 Disability Attorney: [employer] Movnehrctzjcx38/19/13 1226 | | | Wilfrido Ferro MD | | + + + + + + + + | Performing | Address | City/State/Zipcode | Phone Number | | Organization | | | | + + + + + | [facility] | [address] | [place] | [phone] | | [facility] | | [address] | | | - IMAGING | | [...] + + | Performing | Address | City/[facility] [address]/Zipcode | Phone Number | | Organization | | | | + + + + + | [facility] | [address] | [place] | [phone] | | [facility] | | [address] | | | - LABORATORY | | | | + + + + + | [facility] | [address] | [place] | | | [facility] | | [address], [facility] | | | - LABORATORY | | [...] | | | Cells | | | [facility] | | | | | | MEDICAL | | | | | | CENTER - | | | | | | LABORATORY | | + +-------+ + + + | Red Blood | 4.46 | 3.70 - 5.20 | [facility] | | | Cells | | M/uL | [facility] | | | | | | MEDICAL | | | | | | CENTER - | | | | | | LABORATORY | | + +-------+ + + + | Hemoglobin | 13.7 | 11.5 - 16.0 | [facility] | | | | | gm/dL | [facility] | | | | | | MEDICAL [...] | | Basophils | | | [facility] | | | | | | [...] + | [facility] | [address] | [place] | [phone] | | [facility] | | [address] | | | - LABORATORY | | | | + + + + + | [facility] | [address] | [place] | | | [facility] | | [address], [facility] | | | - LABORATORY | | [...]
--- OUTSIDE RECORDS SUMMARY | ~2020-08-20 | XMS | Encounter Summary ---
Demographics + + + | Address | [address] [address] [facility] | | | [place] [address] | + + + | Home Phone | | + + + | Preferred Language | Unknown | + + + | Marital Status | | + + + | Denominational Affiliation | 1069 | + + + | Race | White | + + + | Ethnic Group | Not or | + + + Author + + + | Author | [facility] [...] Pt None To List | ECON | [id number] | | | | | NA, | | + + + + + | Carmine Bergman | ECON | [address] | | | | | [place] | | | | | [address] | | + + + + + Care Team Providers + +------+ + | Care Rate Reviewer Name | Role | Phone | + +------+ + | No, Physician | PCP | Unavailable | + +------+ + Encounter Details +--------+ + + + + | Date | Type | Department | Care Team | Description | +--------+ + + + + | 10/21/ | Hospital | [facility] | Wilfrido Ferro, | | | 2013 - | Encounter | MED CTR SURGICAL | [address] [facility] | | | | | [address] [place] | [place], [place] | | | 10/23/ | | [place] [address] | [id number] | | | 2012 | | [phone] | | | +--------+ + + + [...] +---------+--------+ + documented as of this encounter H&P Notes Wilfrido Ferro MD - 10/17/2013 5:31 PM [place], [place] [address] Patient Name: LACY MILLER Provider: Wilfrido Ferro MD Unit #: [id number] Location: [facility] : 1945 DATE: PREOPERATIVE HISTORY AND PHYSICAL DATE OF PROCEDURE: 10/21/2013 PATIENT IDENTIFICATION: Ms. Miller is a 68-year-old female with the chief complaint of right hip pain. HISTORY OF PRESENT ILLNESS: The patient has had hip pain for a year and a half or so. She localizes her pain to the groin, it is weightbearing related, it has been difficult getting out of a chair. She has to use her hands to lift her leg. 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 PREVIOUS MEDICAL HISTORY: Significant for no chronic medical problems. CURRENT MEDICATIONS 1. Multivitamins. 2. Ibuprofen. PREVIOUS SURGERIES: Right knee arthroscopy in 2001. Left trigger thumb release in 2002. Ap pendectomy in 1967. Hysterectomy in 1986. PRIMARY CARE PHYSICIAN: Evens Simental MD, in [place] FAMILY HISTORY: Father at age 56 from liver disease. Mother lived to 85, of unkn own cause. She has 3 children, who are healthy. PERSONAL HABITS: Two beers a week. No tobacco. REVIEW OF SYSTEMS EYES: Positive glasses use. EARS, NOSE, THROAT: Negative. RESPIRATORY: Negative. CARDIOVASCULAR: Negative. GASTROINTESTINAL: Negative. GENITOURINARY: Positive night urination. No infection. MUSCULOSKELETAL: As above. SKIN: Negative. NEUROLOGIC: Negative. PSYCHIATRIC: Negative. ENDOCRINE: Negative. CONSTITUTIONAL/SYSTEMIC: Negative. PHYSICAL EXAMINATION VITAL SIGNS: Temperature 97.5, pulse 76, respiration 16, blood pressure 130/72, height 5 f eet 7 inches , weight 160 pounds. HEENT: Atraumatic. Oropharynx clear. HEART: Regular rate and rhythm. LUNGS: Clear. ABDOMEN: Soft, nontender. EXTREMITIES: She walks with an antalgic gait. Her right hip has about 10 degrees of internet marketer al rotation. Attempts at more provoke groin pain. Leg lengths are equal. She has 5/5 motor strength in all muscle groups bilateral lower extremities. She has intact pedal pulses, int act sensation all dermatomes bilateral lower extremities. Her x-rays were reviewed and show severe and degenerative mafc-xh-moti arthrosis of the ri ght hip, with circumferential osteophytes. DIAGNOSIS Kyxy-ef-xxha degenerative arthrosis of the right hip. PLAN: Right total hip arthroplasty. The goals of the surgery, the inherent surgical risks and medical risks and reasonable expectations for recovery are all discussed. The patient u nderstands and agrees with plan for a right total hip arthroplasty, direct anterior approac h. DICTATED BY: Wilfrido Ferro MD Orthopedics JOB #: [id number] EXT JOB #:[id number] EDITED: 10/18/2013 12:59 <<Signature on File>> Wilfrido Ferro MD1 12/19/12 1059 <Electronically signed by Wilfrido Ferro MD> documented in this encounter Miscellaneous Notes Op Note - Rodrick Irvin MD - 10/21/2013 9:14 [place] [address] Patient Name: LACY MILLER Provider: Wilfrido Ferro MD Unit #: [id number] Location: [facility] : 1945 DATE: 10/21/2013 OPERATING CO-SURGEON: Rodrick Irvin MD OPERATING CO-SURGEON: Wilfrido Ferro MD PREOPERATIVE DIAGNOSIS Advanced degenerative joint disease, right hip. POSTOPERATIVE DIAGNOSIS ADVANCED DEGENERATIVE JOINT DISEASE, RIGHT HIP. TITLE OF OPERATION: Right anterior approach total joint arthroplasty utilizing Medacta size 50 cup, 50 x 36 liner, a size 3 standard stem and a 36 -2.5 offset head. HISTORY AND REASON FOR SURGERY: Lacy Miller is a 68-year-old female with a history of progre ssively severe right hip pain that has become disabling. She has difficulty walking and wis hes to proceed with definitive treatment. X-rays showed advanced degenerative joint disease and, therefore, the planned procedure with its risks, possible complications, expected pro gnosis and treatment alternatives have been discussed with the patient. Questions were answ ered. No guarantees were given or implied other than that of diligent effort. OPERATIVE PROCEDURE: After the patient signed the consent for surgery, [facility] where she underwent a femoral nerve block, as well as general anesthesia. She had already received 1 gram of IV Ancef. She was placed on the operative table with e Medacta extension. Templating images were obtained with the C-arm. The right hip was then prepped with DuraPrep and draped in the usual free and sterile manner. At this time, the m iddle column of the surgical safety checklist was carried out by the surgical team. Following this, a 10 cm incision was made starting 1 cm inferior to, 1 cm posterior to the ASIS, angling distally over the TFL bulge. Incision was carried down through subcutaneous t issues to the level of the TFL fascia, which was divided in line with the incision. Digital dissection identified the TFL-sartorius interval through which the Uziel-Martha retractor was placed. We freed up the lateral edge of the rectus femoris and placed the retractor de ep to this as well. The investing fatty fascia was removed, and hemostasis was secured with Aquamantys including cauterization of the circumflex femoral vessels. We then performed a capsulotomy and reflected a flap of capsule laterally with #5 Ethibond. The neck was osteotomized at the appropriate level under C-arm guidance and a napkin ring of bone was removed, followed by removal of the head. We then debrided out the acetabular f jae and then commenced reaming up to size 51 mm. A 52 trial was used, which fit nicely. We , therefore, selected the actual 50 mm Medacta cup, which was impacted into place at about 42 degrees of inclination and about 8 degrees of version. The cup was secure. The manhole c over was placed, as was the liner. Following this, Dr. Ferro performed the femoral portion of the surgery including femoral exposure, preparation and placement of the stem and head. Following the final reduction, we found that we had excellent alignment, offset, leg length and component positioning. The wound was irrigated thoroughly. We then injected the operative site soft tissues with a 40 mL combination of 30 mg ketamine, 30 mg Toradol, 10 mg morphine and the remainder with 0.25% Marcaine with epinephrine. Closure commenced. We closed the vertical limb of the capsule with #2 Vicryl. We closed the TFL fascia with #1 Vicryl, subcutaneous tissues were closed with 2-0 Vicryl and the skin w ith clips. We dressed the wound with Xeroform gauze, fluffs, ABD, and perforated tape. Anes thesia was terminated. The patient was transported to the recovery room in stable condition. There were no immedia te postop complications. BLOOD LOSS: About 700 mL. BLOOD REPLACED: None. SPECIMENS: Right femoral head. FINDINGS: Advanced degenerative joint disease, right hip. PROGNOSIS: Good. DICTATED BY: Rodrick Irvin MD Orthopedics JOB #: [id number] EXT JOB #:[id number] cc: Wilfrido Ferro MD <<Signature on File>> Rodrick Irvin MD10/22/13 0746 < p Note - Will Wilfrido drake MD - 10/21/2013 11:59 [place] [address] Patient Name: LACY MILLER Provider: Wilfrido Ferro MD Unit #: [id number] Location: [address] [place], [place] [address]t #: [id number] : 1945 DATE: 10/21/2013 OPERATIVE REPORT COSURGEONS: Wilfrido Ferro MD, and Rodrick Irvin MD. PROCEDURE: Right total hip arthroplasty with Medacta size 50 acetabular component, size 3 standard offset AMIS cementless femoral component, size 36 mm neutral liner, size 36 mm met al head -3.5 length. PROCEDURE IN DETAIL: After informed consent was obtained, the patient was taken to the ope rating room and underwent general anesthesia. She had 1 gram of Ancef IV prophylaxis. A Fol ey catheter was placed. She was placed in the supine position for a direct anterior approac h. Her right lower extremity was placed in a well padded traction boot to which then a Sebastián cta extension was positioned. Her left lower extremity was placed in a semilithotomy positi on using an Andriy leg martini. She was positioned against a well padded peroneal post. All b sharath prominences were well padded. C-arm fluoroscopy was brought in for preoperative imaging . After sterile prep and drape of the right hip, appropriate time-out, and surgical safety c heck list were completed, an incision was made starting just distal and posterior to the IS about 8 cm in length, parallelling the tensor muscle compartment. Dissection through the skin, subcutaneous fat, identifying the tensor fascia which was incised length-ways in dir ection of its fibers and the interval between the tensor and the medial septum was identifi ed and an Uziel-Martha retractor placed. The rectus fascia was incised just along its post erior border and the lateral femoral circumflex vessels were taken down. General anterior c apsule fat pad was removed, identifying the anterior capsule of the hip. Retractors were pl aced. Capsulotomy was opened up, and the femoral neck osteotomy and acetabular preparation were done by Dr. Irvin. Please see his separate dictation. At the conclusion of the stoney tabular implantation, attention was drawn to the femur. I incised the pubofemoral ligaments and capsule releases to the lesser trochanter. The femur was mobilized and placed in exter nal rotation, extension and adduction. Retractors were placed around the greater trochanter and the calcar. We had excellent expo sure of the femur. A canal finder was used followed by a rasp and subsequent broaching. We broached up to a size 3 and with the standard neck and shortest ball, the hip was reduced a nd C-arm imaging was brought in and it looked like we had good leg length and offset restor ation. Cup position was good. We went ahead and opened the femoral component, removed the t rial parts, thoroughly irrigated the hip, placed the actual size 3 standard offset femoral component, and it seated at the same position as the broach. The -3 ball was placed. The hi p was felt to be stable. Final films showed no fractures and again good position of the par ts. The hip was thoroughly irrigated. We closed the capsule anatomically with #2 Vicryl suture. The superior half was closed. Th e inferior half was left open. The tensor and rectus were in good shape without any trauma. The tensor fascia was closed with #1 Vicryl. The deep adipose was closed with 0 Vicryl and the wound was closed with 2-0 and 3-0 Vicryl followed by skin sherrie. Estimated blood los s was 700 mL. We infiltrated a pain cocktail solution into the capsule, muscle and subcutan eous tissues on the way out with 50 mL of 0.25% Marcaine with epinephrine, 30 mg of Toradol , 30 mg of ketamine and 10 mg of morphine. Sterile dressings were applied. The patient was stable to post anesthesia recovery. Leg length looked good at the ankles. Please see Dr. Irvin's dictation for the first half of the operation. DICTATED BY: Wilfrido Ferro MD Orthopedics JOB #: [id number] EXT JOB #:[id number] <<Signature on File>> Wilfrido Ferro MD1 12/22/12 0807 <Electronically signed by Wilfrido Ferro MD> documented in this encounter Plan of Treatment Not on filedocumented as of this encounter Procedures + +--------+ + + + | Procedure Name | Priori | Date/Time | Associated Diagnosis | Comments | | | ty | | | | + +--------+ + + + | HEMOGLOBIN AND | Routin | 10/23/2013 | | Results for this | | HEMATOCRIT | e | 6:30 AM | | procedure are in the | | | | PST | | results section. | + +--------+ + + + | PROTIME INR | Routin | 10/23/2013 | | Results for this | | | e | 6:30 AM | | procedure are in the | | | | PST | | results section. | + +--------+ + + + | BASIC METABOLIC | Routin | 10/23/2013 | | Results for this | | PANEL | e | 6:30 AM | | procedure are in the | | | | PST | | results section. | + +--------+ + + + | HEMOGLOBIN AND | Routin | 10/22/2013 | | Results for this | | HEMATOCRIT | e | 6:39 AM | | procedure are in the | | | | PST | | results section. | + +--------+ + + + | PROTIME INR | Routin | 10/22/2013 | | Results for this | | | e | 6:39 AM | | procedure are in the | | | | PST | | results section. | + +--------+ + + + | BASIC METABOLIC | Routin | 10/22/2013 | | Results for this | | PANEL | e | 6:39 AM | | procedure are in the | | | | PST | | results section. | + +--------+ + + + | XR PELVIS 1 OR 2 VW | Routin | 10/21/2013 | | Results for this | | | e | 12:49 PM | | procedure are in the | | | | PST | | results section. | + +--------+ + + + documented in this encounter Results Protime INR (10/23/2013 6:30 AM PST) + + + + + + | Component | Value | Ref Range | Performed | Pathologist | | | | | At | Signature | + + + + + + | Prothrombin | 13.9 | 11.3 - 13.9 | [facility] | | | Time | | seconds | [facility] | | | | | | [facility] | | | | | | CENTER - | | | | | | LABORATORY | | + + + + + + | PATIENT | 13.1 | seconds | [facility] | | | NORMAL MEAN | | | [facility] | | | | | | [facility] | | | | | | CENTER - | | | | | | LABORATORY | | + + + + + + | INR | 1.1Comment: INR: USUAL | 0.9 - 1.1 | [facility] | | | | ORAL ANTICOAGULATION | | [facility] | | | | RANGE | | MEDICAL | | | | 2.0-3.0 | | CENTER - | | | | HIGH LEVEL ORAL | | LABORATORY | | | | ANTICOAGULATION RANGE | | | | | | 2.5-3.5 | | | | + + + + + + + + | Specimen | + + | | + + + + + + + | Performing | Address | City/[facility]/Zipcode | Phone Number | | Organization | | | | + + + + + | [facility] | [address] | [place], [place] | [phone] | | [facility] | | [address] | | | - LABORATORY | | | | + + + + + | [facility] | [address] | [place] | | | [facility] | | [address], [facility] | | | - LABORATORY | | | | + + + + + Basic Metabolic Panel (10/23/2013 6:30 AM PST) + + + + + + | Component | Value | Ref Range | Performed | Pathologist | | | | | At | Signature | + + + + + + | Glucose | 105 | 70 - 109 mg/dL | [facility] | | | | | | [facility] | | | | | | MEDICAL | | | | | | CENTER - | | | | | | LABORATORY | | + + + + + + | Calcium | 8.3 | 8.3 - 10.5 | [facility] | | | | | mg/dL | [facility] | | | | | | MEDICAL | | | | | | CENTER - | | | | | | LABORATORY | | + + + + + + | BUN | 9 | 7 - 18 mg/dL | [facility] | | | | | | [facility] | | | | | | MEDICAL | | | | | | CENTER - | | | | | | LABORATORY | | + + + + + + | Creatinine | 0.50 (L) | 0.60 - 1.30 | [facility] | | | | | mg/dL | [facility] | | | | | | MEDICAL | | | | | | CENTER - | | | | | | LABORATORY | | + + + + + + | Estimated | >60Comment: For | >60 mL/min/A | [facility] | | | GFR | -Americans, | [...] + + + + | BUN/Creatin | 18.0 | 12 - 20 | [facility] | | | ine Ratio | | | [facility] | | | | | | MEDICAL | | | | | | CENTER - | | | | | | LABORATORY | | + + + + + + | Na | 134 (L) | 136 - 149 mEq/L | [facility] | | | | | | [facility] | | | | | | MEDICAL | | | | | | CENTER - | | | | | | LABORATORY | | + + + + + + | K | 3.8 | 3.5 - 5.1 mEq/l | [facility] | | | | | | [facility] | | | | | | MEDICAL | | | | | | CENTER - | | | | | | LABORATORY | | + + + + + + | Cl | 100 | 98 - 109 mEq/l | [facility] | | | | | | [facility] | | | | | | MEDICAL | | | | | | CENTER - | | | | | | LABORATORY | | + + + + + + | CO2 | 28 | 24 - 31 mEq/L | [facility] | | | | | | [facility] | | | | | | MEDICAL | | | | | | CENTER - | | | | | | LABORATORY | | + + + + + + | Anion Gap | 9.8 | 6.0 - 17.0 | [facility] | [...] + | [facility] | [address] | [place], [place] | [phone] | | [facility] | | [address] | | | - LABORATORY | | | | + + + + + | [facility] | [address] | [place], [place] | | | [facility] | | [id number] [place] [address] | | | - LABORATORY | | | | + + + + + Hemoglobin and Hematocrit (10/23/2013 6:30 AM PST) + + + + + + | Component | Value | Ref Range | Performed | Pathologist | | | | | At | Signature | + + + + + + | Hemoglobin | 10.2 (L) | 11.5 - 16.0 | [facility] | | | | | gm/dL | [facility] | | | | | | MEDICAL | | | | | | CENTER - | | | | | | LABORATORY | | + + + + + + | Hematocrit | 29.1 (L) | 34.0 - 47.0 % | [facility] [...] + | [facility] | [address] | [place] | [phone] | | [facility] | | [address] | | | - LABORATORY | | | | + + + + + | [facility] | [address] | [place] | | | [facility] | | [address], [facility] | | | - LABORATORY | | | | + + + + + Protime INR (10/22/2013 6:39 AM PST) + + + + + + | Component | Value | Ref Range | Performed | Pathologist | | | | | At | Signature | + + + + + + | Prothrombin | 14.1 (H) | 11.3 - 13.9 | [facility] | | | Time | | seconds | [facility] | | | | | | MEDICAL | | | | | | CENTER - | | | | | | LABORATORY | | + + + + + + | PATIENT | 13.1 | seconds | [facility] | | | NORMAL MEAN | | | [facility] | | | | | | MEDICAL | | | | | | CENTER - | | | | | | LABORATORY | | + + + + + + | INR | 1.1Comment: INR: USUAL | 0.9 - 1.1 | [facility] | | | | ORAL ANTICOAGULATION | | [facility] | | | | RANGE | | MEDICAL | | | | 2.0-3.0 | | CENTER - | | | | HIGH LEVEL ORAL | | LABORATORY | | | | ANTICOAGULATION RANGE | | | | | | 2.5-3.5 | | | | + + + + + + + + | Specimen | + + | | + + + + + + + | Performing | Address | City/State/Zipcode | Phone Number | | Organization | | | | + + + + + | [facility] | [address] | [place] | [phone] | | [facility] | | [address] | | | - LABORATORY | | | | + + + + + | [facility] | [address] | [place] | | | [facility] | | [address] [place] [address] | | | - LABORATORY | | | | + + + + + Basic Metabolic Panel (10/22/2013 6:39 AM PST) + + + + + + | Component | Value | Ref Range | Performed | Pathologist | | | | | At | Signature | + + + + + + | Glucose | 92 | 70 - 109 mg/dL | [facility] | | | | | | [facility] | | | | | | MEDICAL | | | | | | CENTER - | | | | | | LABORATORY | | + + + + + + | Calcium | 8.6 | 8.3 - 10.5 | [facility] | | | | | mg/dL | [facility] | | | | | | MEDICAL | | | | | | CENTER - | | | | | | LABORATORY | | + + + + + + | BUN | 9 | 7 - 18 mg/dL | [facility] | | | | | | [facility] | | | | | | MEDICAL | | | | | | CENTER - | | | | | | LABORATORY | | + + + + + + | Creatinine | 0.60 | 0.60 - 1.30 | [facility] | | | | | mg/dL | [facility] | | | | | | MEDICAL | | | | | | CENTER - | | | | | | LABORATORY | | + + + + + + | Estimated | >60Comment: For | >60 mL/min/A | [facility] | | | GFR | -Americans, | | [facility] | | | | please multiply the [...] + + + + | BUN/Creatin | 15.0 | 12 - 20 | [facility] | | | ine Ratio | | | [facility] | | | | | | MEDICAL | | | | | | CENTER - | | | | | | LABORATORY | | + + + + + + | Na | 139 | 136 - 149 mEq/L | [facility] | | | | | | [facility] | | | | | | MEDICAL | | | | | | CENTER - | | | | | | LABORATORY | | + + + + + + | K | 4.6 | 3.5 - 5.1 mEq/l | [facility] | | | | | | [facility] | | | | | | MEDICAL | | | | | | CENTER - | | | | | | LABORATORY | | + + + + + + | Cl | 104 | 98 - 109 mEq/l | [facility] [...] + + + | Anion Gap | 8.6 | 6.0 - 17.0 | [facility] | [...] + | [facility] | [address] | [place] | [phone] | | [facility] | | [address] | | | - LABORATORY | | | | + + + + + | [facility] | [address] | [place], [place] | | | [facility] | | [address] | | | - LABORATORY | | | | + + + + + Hemoglobin and Hematocrit (10/22/2013 6:39 AM PST) + + + + + + | Component | Value | Ref Range | Performed | Pathologist | | | | | At | Signature | + + + + + + | Hemoglobin | 10.2 (L) | 11.5 - 16.0 | [facility] | | | | | gm/dL | [facility] | | | | | | MEDICAL | | | | | | CENTER - | | | | | | LABORATORY | | + + + + + + | Hematocrit | 29.5 (L) | 34.0 - 47.0 % | [facility] | | | | | [...] | [facility] | [address] | [place] | [phone] | | [facility] | | [address] | | | - LABORATORY | | | | + + + + + | [facility] | [address] | [place], [place] | | | [facility] | | [address], [facility] | | | - LABORATORY | | | | + + + + + XR Pelvis 1 or 2 Vw (10/21/2013 12:49 PM PST) + + | Specimen | + + | | + + + + + | Narrative | Performed At | + + + | [facility] | [place] | | Department [address] , [place] | [facility] | | [ rep ct [address]] [ rep ct [facility] | | st zip] Signed | - IMAGING | | | | | Patient Name: LACY MILLER Physician: | | | : 1945 Age: 68 Sex: F Unit #: [id number] | | | Exam Date: 10/21/13 Location: [address] [place] [address] | | | Report #: [id number] Page: | | | %(RAD)RES..mtdd.print.filter("pg") of %(RAD) | | | RES..mtdd.print.filter("tpg") | | | | | | Accession Number: [id number] | | | SINGLE AP PELVIS, 10/21/2013 CLINICAL HISTORY: STATUS | | | POST RIGHT TOTAL HIP ARTHROPLASTY. COMPARISON: Right hip | | | radiographs 10/11/2013 and 09/28/2013. FINDINGS: | | | Right total hip arthroplasty hardware is now present and appears to | | | be well seated. No fracture or dislocation is suspected. There are | | | moderate to severe degenerative changes of the left hip , with | | | prominent marginal osteophyte formation. The sacroiliac joints and | | | pubic symphysis are maintained. A rounded calcification again | | | projects over the right pelvic cavity and is consistent with a | | | phlebolith. A bladder catheter projects over the midline pelvic | | | cavity. Skin sherrie project lateral to the right hip. | | | IMPRESSION: 1. SATISFACTORY APPEARANCE STATUS POST RIGHT TOTAL | | | HIP ARTHROPLASTY. 2. MODERATE TO SEVERE DEGENERATION OF | | | THE LEFT HIP. Dictated Date/Time: 10/21/2013 12:49 | | | Transcribed Date/Time: 10/21/2013 13:04 Telephone Messenger: | | | <<Signature on File>> | | | Igor Becerril | | | MD Rodrick10/21/13 1314 <Electronically signed by Igor Mensah MD> | | | Igor Mensah MD 10/21/13 1248 Telephone Messenger: | | | Maytechpatricia Xckryhexaqsyk56/29/13 1303 | | + + + + + + + + | Performing | Address | City/State/Zipcode | Phone Number | | Organization | | | | + + + + + | [facility] | [address] | [place] | [phone] | | [facility] | | [address] | | | - IMAGING | | | | + + + + + documented in this encounter Visit Diagnoses Not on filedocumented in this encounter
--- OUTSIDE RECORDS SUMMARY | ~2020-08-20 | XMS | Encounter Summary ---
Demographics + + + | Address | [address] | | | [place] [address] | + + + | Home Phone | | + + + | Preferred Language | Unknown | + + + | Marital Status | | + + + | Mormonism Affiliation | 1069 | + + + | Race | White | + + + | Ethnic Group | Not or | + + + Author + + + | Author | [facility] | | | and [place] | + + + | Organization | [facility] | | | and [place] | + + + | Address | Unknown | + + + | Phone | Unavailable | + + + Support + + + + + | Name | Relationship | Address | Phone | + + + + + | Per Pt None To List | ECON | 880681 | | | | | NA, | | + + + + + | Carmine Bergman | ECON | [address] | | | | | [place] | | | | | [address] | | + + + + + Care Team Providers + +------+ + | Care Game Design Instructor Name | Role | Phone | + +------+ + PCP | Unavailable | + +------+ + Encounter Details +--------+ + + + + | Date | Type | Department | Care Team | Description | +--------+ + + + + | 12/30/ | Hospital | [facility] | Wilfrido Ferro, | | | 2001 | Encounter | MED CTR MP INTRA OP | MD [address] [facility] | | | | | [address] | [place], [place] | | | | | [place], [place] | [address] | | | | | [address] | | | | | | [phone] | | | +--------+ + + + [...]
--- OUTSIDE RECORDS SUMMARY | ~2020-08-20 | XMS | Encounter Summary ---
Demographics + + + | Address | [address] | | | [place] [address] | + + + | Home Phone | | + + + | Preferred Language | Unknown | + + + | Marital Status | | + + + | Restorationist Affiliation | 1069 | + + + | Race | White | + + + | Ethnic Group | Not or | + + + Author + + + | Author | [facility] | | | and [place] | + + + | Organization | [facility] | | | and [place] | + + + | Address | Unknown | + + + | Phone | Unavailable | + + + Support + + + + + | Name | Relationship | Address | Phone | + + + + + | Per Pt None To List | ECON | 988111 | | | | | NA, | | + + + + + | Carmine Bergman | ECON | [address] | | | | | [place] | | | | | [address] | | + + + + + Care Team Providers + +------+ + | Care Medical Billing Supervisor Name | Role | Phone | + +------+ + | No, Physician | PCP | Unavailable | + +------+ + Encounter Details +--------+ + + + + | Date | Type | Department | Care Team | Description | +--------+ + + + + | 10/11/ | Hospital | [facility] | Wilfrido Ferro, | Heart murmur; Family | | 2012 | Encounter | MED CTR XRAY [address] | [address] | history of heart | | | | [address] [place] | [place] | disease in female | | | | [place] [address] | 738482 | family member before | | | | [phone] | | age 66; | | | [...] Performed At | + + + | [facility] | [place] | | Department [address] [facility] | [facility] | | [ rep ct street1+2] [ rep [facility] | | st zip] Signed | - IMAGING | | | | | Patient Name: MONROE MILLER Physician: | | | . : 1945 Age: 68 Sex: F Unit #: [id number] | | | Exam Date: 10/11/13 Location: [facility] [place] | | | Report #: [id number] Page: | | | %(RAD)RES..mtdd.print.filter("pg") of %(RAD) | | | RES..mtdd.print.filter("tpg") | | | | | | Accession Number: [id number] | | | RIGHT HIP, 10/11/2013 CLINICAL [...] Transcribed Date/Time: 10/11/2013 12:26 | | | Ornamenter Hand: <<Signature on File>> | | | | | | Néstor Rust MD10/11/13 1312 <Electronically signed by | | | Néstor Rust MD> Néstor Rust MD 10/11/13 | | | 1147 Ornamenter Hand: AFAR Wbvqogvaiyrsl38/19/13 1226 | | | Wilfrido Ferro MD | | + + + + + + + + | Performing | Address | City/State/Zipcode | Phone Number | | Organization | | | | + + + + + | [facility] | [address] | [place] | [phone] | | [facility] | | [address] | | | - IMAGING | | [...] | | Cells | | M/uL | ADRIEN | | | | | [...] + | [facility] | [address] | [place] | [phone] | | [facility] | | [address] | | | - LABORATORY | | | | + + + + + | [facility] | [address] | [place] | | | [facility] | | [address] | | | - LABORATORY | [...] [address] | [place] | [phone] | | [facility] | | [address] | | | - LABORATORY | | | | + + + + + | [facility] | [address] | [place] | | | [facility] | | [address] | | | - LABORATORY | [...] 14 | 7 - 18 mg/dL | [facility] | | | | | | [facility] | | | | | | [facility]ICAL | | | | | | [facility]ENTER - | | | | | | LABORATORY | | + + + + + + | Creatinine | 0.62 | 0.60 - 1.30 | [facility] | | | | | mg/dL | [...] + | [facility] | [address] | [place] | [phone] | | [facility] | | [address] | | | - LABORATORY | | | | + + + + + | [facility] | [address] | [place] | | | [facility] | | [address] [place] [address] | | | - LABORATORY | | [...] + | [facility] | [address] | [place], [place] | [phone] | | [facility] | | [address] | | | - LABORATORY | | | | + + + + + | [facility] | [address] | [place], [place] | | | [facility] | | [address] [place] [address] | | | - LABORATORY | | [...]
--- OUTSIDE RECORDS SUMMARY | ~2020-08-20 | XMS | Encounter Summary ---
Demographics + + + | Address | [address] | | | [place] [address] | + + + | Home Phone | | + + + | Preferred Language | Unknown | + + + | Marital Status | | + + + | Mosque Affiliation | 1069 | + + + | Race | White | + + + | Ethnic Group | Not or | + + + Author + + + | Author | [facility] | | | and [place] | + + + | Organization | [facility] | | | and [place] | + + + | Address | Unknown | + + + | Phone | Unavailable | + + + Support + + + + + | Name | Relationship | Address | Phone | + + + + + | Per Pt None To List | ECON | 905014 | | | | | NA, | | + + + + + | Carmine Bergman | ECON | [address] | | | | | [place] | | | | | [address] | | + + + + + Care Team Providers + +------+ + | Care Animal Care Taker Name | Role | Phone | + [...] + + | 12/05/ | Office | [facility] | Wilfrido Ferro, | Hip joint | | 2013 | Visit | ORTHOPEDIC SURGERY | [address] | replacement by other | | | | [address] | [place] | means (Primary Dx) | | | | [place] | [address] | | | | | [address] | | | | | | [phone] | | | +--------+---------+ + + + [...] Performed At | + + + | [facility] | [place] | | Department [address] [place] | [facility] | | [ rep ct street1+2] [ rep ct [facility] [place] | | st zip] Signed | - IMAGING | | | | | Patient Name: MONROE MILLER Tobi Physician: | | | .01 : 1945 Age: 68 Sex: F Unit #: [id number] | | | Exam Date: 12/05/13 Location: [facility] | | | Report #: [id number] Page: | | | %(RAD)RES..mtdd.print.filter("pg") of %(RAD) | | | RES..mtdd.print.filter("tpg") | | | | | | Accession Number: [id number] | | | PELVIS X-RAY CLINICAL HISTORY: [...] Transcribed Date/Time: 12/05/2013 13:28 | | | Coat Checker: <<Signature on File>> | | | | | | Javier Boles MD12/05/13 2307 <Electronically signed by Javier Boles | | | MD> Javier Boles MD 12/05/13 1221 Coat Checker: | | | Wercker Vcppqoxcivwel75/13/14 1328 Wilfrido Ferro MD | | | | | + + + + + + + + | Performing | Address | City/State/Zipcode | Phone Number | | Organization | | | | + + + + + | [facility] | [address] | [place] | [phone] | | [facility] | | [address] | | | - IMAGING | | | | + + + + + documented in this encounter Visit Diagnoses + + | Diagnosis | + + | Hip joint replacement by other means - Primary | + + documented in this encounter
--- OUTSIDE RECORDS SUMMARY | ~2020-08-20 | XMS | Encounter Summary ---
Demographics + + + | Address | [address] | | | [place] [address] | + + + | Home Phone [...] [facility] | | | and [place] | + + + | Organization | [facility] | | | and [place] | + + + | Address | Unknown | + + + | Phone | Unavailable | + + + Support + + + + + | Name | Relationship | Address | Phone | + + + + + | Per Pt None To List | ECON | [address] | | | | | NA, | | + + + + + | Carmine Bergman | ECON | [address] | | | | | [place] | | | | | [address] | | + + + + + Care Team Providers + +------+ + | Care Tire Design Engineer Name | Role | Phone | + +------+ + | Tomas Simental MD | PCP | | + +------+ + Reason for Visit +---------+ + | Reason | Comments | +---------+ + | Post Op | Right total hip arthroplasty DOS 10/21/2013 staple removal | +---------+ + Encounter Details +--------+---------+ + + + | Date | Type | Department | Care Team | Description | +--------+---------+ + + + | 11/02/ | Office | [facility] | Wilfrido Ferro, | Postop check | | 2012 | Visit | ORTHOPEDIC SURGERY | [address] | (Primary Dx) | | | | [address] | [place] | | | | | [place] | [address] | | | | | [address] | | | | | | [phone] | | | +--------+---------+ + + + [...] Temperature | 37 C (98.6 F) | 11/02/2013 11:36 AM | | | | | PST [...] Weight | 70.8 kg (156 lb) | 11/02/2013 11:36 AM | | | | | PST | | + + + + + | Height | 170.2 cm (5' 7") | 11/02/2013 11:36 AM | | | | | PST | | + + + + + | Body Mass Index | 24.43 | 11/02/2013 11:36 AM | | | | | PST | | + + + + + documented in this encounter Progress Notes Wilfrido Ferro MD - 11/02/2013 11:53 AM PSTPt returns s/p right CARO She is doing very well - wound healing well - sherrie out today Walking with a cane only Plan - return one month with xrays documented in this encounter Plan of Treatment Not on filedocumented as of this encounter Visit Diagnoses + + | Diagnosis | + + | Postop check - Primary Follow-up examination, following unspecified surgery | + + documented in this encounter
--- OUTSIDE RECORDS SUMMARY | ~2020-08-20 | XMS | Encounter Summary ---
Demographics + + + | Address | [address] | | | [place] [address] | + + + | Home Phone | | + + + | Preferred Language | Unknown | + + + | Marital Status | | + + + | Anglican Affiliation | 1069 | + + + | Race | White | + + + | Ethnic Group | Not or | + + + Author + + + | Author | [facility] | | | and [place] | + + + | Organization | [facility] | | | and [place] | + + + | Address | Unknown | + + + | Phone | Unavailable | + + + Support + + + + + | Name | Relationship | Address | Phone | + + + + + | Per Pt None To List | ECON | [address] | | | | | NA, | | + + + + + | Carmine Bergman | ECON | [address] | | | | | [place] | | | | | [address] | | + + + + + Care Team Providers + +------+ + | Care Court Magistrate Name | Role | Phone | + [...] + + | 07/07/ | Office | [facility] | Wilfrido Ferro, | S/P total hip | | 2013 | Visit | ORTHOPEDIC SURGERY | [address] | arthroplasty | | | | [address] | [place] | (Primary Dx) | | | | [place] | [address] | | | | | [address] | | | | | | [phone] | | | +--------+---------+ + + + [...]
--- OUTSIDE RECORDS SUMMARY | ~2020-08-20 | XMS | Encounter Summary ---
Demographics + + + | Address | [address] | | | [place] [address] | + + + | Home Phone | | + + + | Preferred Language | Unknown | + + + | Marital Status | | + + + | Islam Affiliation | 1069 | + + + | Race | White | + + + | Ethnic Group | Not or | + + + Author + + + | Author | [facility] | | | and [place] | + + + | Organization | [facility] | | | and [place] | + + + | Address | Unknown | + + + | Phone | Unavailable | + + + Support + + + + + | Name | Relationship | Address | Phone | + + + + + | Per Pt None To List | ECON | [address] | | | | | NA, | | + + + + + | Carmine Bergman | ECON | [address] | | | | | [place] | | | | | [address] | | + + + + + Care Team Providers + +------+ + | Care Dental Scheduling Coordinator Name | Role | Phone | + +------+ + | No, Physician | PCP | Unavailable | + +------+ + Encounter Details +--------+ + + + + | Date | Type | Department | Care Team | Description | +--------+ + + + + | 10/21/ | Hospital | [facility] | Wilfrido Ferro, | | | 2013 - | Encounter | MED CTR SURGICAL | [address] [facility] | | | | | [address] [place] | [place], [place] | | | 10/23/ | | [place] [address] | [id number] | | | 2012 | | [phone] | | | +--------+ + + + [...] Wilfrido Ferro MD - 10/17/2013 5:31 PM [place], [place] [address] Patient Name: LACY MILLER Provider: Wilfrido Ferro MD Unit #: [id number] Location: [facility] : 1945 DATE: PREOPERATIVE HISTORY AND PHYSICAL [...] PRIMARY CARE PHYSICIAN: Evens Simental MD, in [place] FAMILY HISTORY: Father at age 56 from [...] right hip has about 10 degrees of regulatory internship al rotation. Attempts at more provoke groin pain. Leg lengths are equal. She has 5/5 motor strength in all muscle groups bilateral lower extremities. She has intact pedal pulses, int act sensation all dermatomes bilateral lower extremities. Her x-rays were reviewed and show severe and degenerative itft-sa-ypuv arthrosis of the ri ght hip, with circumferential osteophytes. DIAGNOSIS Krdy-bz-ujsf degenerative arthrosis of the right hip. PLAN: Right total hip arthroplasty. The goals of the surgery, the inherent surgical risks and medical risks and reasonable expectations for recovery are all discussed. The patient u nderstands and agrees with plan for a right total hip arthroplasty, direct anterior approac h. DICTATED BY: Wilfrido Ferro MD Orthopedics JOB #: [id number] EXT JOB #:[id number] EDITED: 10/18/2013 12:59 <<Signature on File>> Wilfrido Ferro MD1 12/19/12 1059 <Electronically signed by Wilfrido Ferro MD> documented in this encounter Miscellaneous Notes Op Note - Rodrick Irvin MD - 10/21/2013 9:14 [place] [address] Patient Name: LACY MILLER Provider: Wilfrido Ferro MD Unit #: [id number] Location: [facility] : 1945 DATE: 10/21/2013 OPERATING CO-SURGEON: Rodrick [...] consent for surgery, she was brought to [facility] operating room where she underwent a femoral [...] BY: Rodrick Irvin MD Orthopedics JOB #: [id number] EXT JOB #:[id number] cc: Wilfrido Ferro MD <<Signature on File>> Rodrick Irvin MD10/22/13 0746 < p Note - Will Wilfrido drake MD - 10/21/2013 11:59 [place] [address] Patient Name: LACY MILLER Provider: Wilfrido Ferro MD Unit #: [id number] Location: [address] [place], [place] [address]t #: [id number] : 1945 DATE: 10/21/2013 OPERATIVE REPORT COSURGEONS: [...] BY: Wilfrido Ferro MD Orthopedics JOB #: [id number] EXT JOB #:[id number] <<Signature on File>> Wilfrido Ferro MD1 12/22/12 [...] + + | Performing | Address | City/[facility]/Zipcode | Phone Number | | Organization | | | | + + + + + | [facility] | [address] | [place], [place] | [phone] | | [facility] | | [address] | | | - LABORATORY | | | | + + + + + | [facility] | [address] | [place] | | | [facility] | | [address], [facility] | | | - LABORATORY [...] + | [facility] | [address] | [place], [place] | [phone] | | [facility] | | [address] | | | - LABORATORY | | | | + + + + + | [facility] | [address] | [place], [place] | | | [facility] | | [id number] [place] [address] | | | - LABORATORY | | [...] + | [facility] | [address] | [place] | [phone] | | [facility] | | [address] | | | - LABORATORY | | | | + + + + + | [facility] | [address] | [place] | | | [facility] | | [address], [facility] | | | - LABORATORY [...] + | [facility] | [address] | [place] | [phone] | | [facility] | | [address] | | | - LABORATORY | | | | + + + + + | [facility] | [address] | [place] | | | [facility] | | [address] [place] [address] | | | - LABORATORY | | [...] + | [facility] | [address] | [place] | [phone] | | [facility] | | [address] | | | - LABORATORY | | | | + + + + + | [facility] | [address] | [place], [place] | | | [facility] | | [address] | | | - LABORATORY | [...] | | | | gm/dL | [facility] | | | | | | [...] [address] | [place] | [phone] | | [facility] | | [address] | | | - LABORATORY | | | | + + + + + | [facility] | [address] | [place], [place] | | | [facility] | | [address], [facility] | | | - LABORATORY | | | | + + + + + XR Pelvis 1 or 2 Vw (10/21/2013 12:49 PM PST) + + | Specimen | + + | | + + + + + | Narrative | Performed At | + + + | [facility] Diagnostic Imaging | [facility] | | Department [address] , [place] | [facility] | | [ rep ct street1+2] [ rep ct [facility] | | st zip] Signed | - IMAGING | | | | | Patient Name: LACY MILLER Physician: | | | : 1945 Age: 68 Sex: F Unit #: [id number] | | | Exam Date: 10/21/13 Location: [address] [place] [address] | | | Report #: [id number] Page: | | | %(RAD)RES..mtdd.print.filter("pg") of %(RAD) | | | RES..mtdd.print.filter("tpg") | | | | | | Accession Number: [id number] | | | SINGLE AP PELVIS, 10/21/2013 [...] | | | Transcribed Date/Time: 10/21/2013 13:04 [employer] Fruit Crop Farmer: | | | <<Signature on File>> | | | Igor Becerril | | | MD Rodrick10/21/13 1314 <Electronically signed by Igor Mensah MD> | | | Igor Mensah MD 10/21/13 1241 [employer] Fruit Crop Farmer: | | | JobHorecapatricia Dbkspfpvroscv04/29/13 1309 | | + + + + + + + + | Performing | Address | City/State/Zipcode | Phone Number | | Organization | | | | + + + + + | [facility] | [address] | [place] | [phone] | | [facility] | | [address] | | | - IMAGING | | | | + + + + + documented in this encounter Visit Diagnoses Not on filedocumented in this encounter
--- OUTSIDE RECORDS SUMMARY | ~2020-08-20 | XMS | Encounter Summary ---
Demographics + + + | Address | [address] | | | [place] [address] | + + + | Home Phone | | + + + | Preferred Language | Unknown | + + + | Marital Status | | + + + | Rastafari Affiliation | 1069 | + + + | Race | White | + + + | Ethnic Group | Not or | + + + Author + + + | Author | [facility] | | | and [place] | + + + | Organization | [facility] | | | and [place] | + + + | Address | Unknown | + + + | Phone | Unavailable | + + + Support + + + + + | Name | Relationship | Address | Phone | + + + + + | Per Pt None To List | ECON | [address] | | | | | NA, | | + + + + + | Carmine Bergman | ECON | [address] | | | | | [place] | | | | | [address] | | + + + + + Care Team Providers + +------+ + | Care Mortgage Advisor Name | Role | Phone | + +------+ + | No, Physician | PCP | Unavailable | + +------+ + Encounter Details +--------+ + + + + | Date | Type | Department | Care Team | Description | +--------+ + + + + | 09/28/ | Hospital | [facility] | Wilfrido Ferro, | Right hip pain | | 2013 | Encounter | MED CTR XRAY [address] | [address] [facility] | | | | | [place] | [place], [place] | | | | | [place] [address] | [address] | | | | | [phone] | | | +--------+ + + + [...] Performed At | + + + | [facility] Diagnostic Imaging | [place] | | Department [address] [place] [address] | [facility] | | [ rep ct street1+2] [ rep ct [facility] | | st zip] Signed | - IMAGING | | | | | Patient Name: LACY MILLER Physician: | | | WILL. : 1945 Age: 68 Sex: F Unit #: [id number] | | | Exam Date: 09/28/13 Location: [facility] | | | Report #: [id number] Page: | | | %(RAD)RES..mtdd.print.filter("pg") of %(RAD) | | | RES..mtdd.print.filter("tpg") | | | | | | Accession Number: [id number] | | | TWO VIEWS RIGHT HIP [...] Transcribed Date/Time: | | | 09/28/2013 11:33 [employer]: [place]CKEN[place]IE | | | <<Signature on File>> | | | Igor Becerril | | Mindi Mensah MD09/28/13 2306 <Electronically signed by Igor Mensah MD> | | | Igor Mensah MD 09/28/13 1111 [employer]: | | | [employer] Prtktmnfykkkd28/06/13 1133 Wilfrido Ferro MD | | | | | + + + + + + + + | Performing | Address | City/State/Zipcode | Phone Number | | Organization | | | | + + + + + | [facility] | [address] | [place] | [phone] | | [facility] | | [address] | | | - IMAGING | | | | + + + + + documented in this encounter Visit Diagnoses + + | Diagnosis | + + | Right hip pain Pain in joint, pelvic region and thigh | + + documented in this encounter
--- OUTSIDE RECORDS SUMMARY | ~2020-08-20 | XMS | Encounter Summary ---
Demographics + + + | Address | [address] | | | [place] [address] | + + + | Home Phone | | + + + | Preferred Language | Unknown | + + + | Marital Status | | + + + | Congregation Affiliation | 1069 | + + + | Race | White | + + + | Ethnic Group | Not or | + + + Author + + + | Author | [facility] | | | and [place] | + + + | Organization | [facility] | | | and [place] | + + + | Address | Unknown | + + + | Phone | Unavailable | + + + Support + + + + + | Name | Relationship | Address | Phone | + + + + + | Per Pt None To List | ECON | [address] | | | | | NA, | | + + + + + | Carmine Bergman | ECON | [address] | | | | | [place] | | | | | [address] | | + + + + + Care Team Providers + +------+ + | Care Care Coordinator Name | Role | Phone | + +------+ + PCP | Unavailable | + +------+ + Encounter Details +--------+ + + + + | Date | Type | Department | Care Team | Description | +--------+ + + + + | 05/12/ | Hospital | [facility] | | | | 1995 | Encounter | MED CTR XRAY [address] | | | | | | [place] | | | | | | [place] [address] | | | | | | [phone] | | | +--------+ + + + [...]
--- OUTSIDE RECORDS SUMMARY | ~2020-08-20 | XMS | Encounter Summary ---
Demographics + + + | Address | [address] | | | [place] [address] | + + + | Home Phone | | + + + | Preferred Language | Unknown | + + + | Marital Status | | + + + | Shinto Affiliation | 1069 | + + + | Race | White | + + + | Ethnic Group | Not or | + + + Author + + + | Author | [facility] | | | and [place] | + + + | Organization | [facility] | | | and [place] | + + + | Address | Unknown | + + + | Phone | Unavailable | + + + Support + + + + + | Name | Relationship | Address | Phone | + + + + + | Per Pt None To List | ECON | [address] | | | | | NA, | | + + + + + | Carmine Bergman | ECON | [address] | | | | | [place] | | | | | [address] | | + + + + + Care Team Providers + +------+ + | Care Washer Assembler Name | Role | Phone | + [...] | [address] | | | | | [address] | | | | | | [phone] | | | +--------+---------+ + + + [...]
--- OUTSIDE RECORDS SUMMARY | ~2020-08-20 | XMS | Encounter Summary ---
Demographics + + + | Address | [address] | | | [place] [address] | + + + | Home Phone | | + + + | Preferred Language | Unknown | + + + | Marital Status | | + + + | Evangelical Affiliation | 1069 | + + + | Race | White | + + + | Ethnic Group | Not or | + + + Author + + + | Author | [facility] | | | and [place] | + + + | Organization | [facility] | | | and [place] | + + + | Address | Unknown | + + + | Phone | Unavailable | + + + Support + + + + + | Name | Relationship | Address | Phone | + + + + + | Per Pt None To List | ECON | [id number] | | | | | NA, | | + + + + + | Carmine Bergman | ECON | [address] | | | | | [place] | | | | | [address] | | + + + + + Care Team Providers + +------+ + | Care Ese Teacher Name | Role | Phone | [...] | [address] | | | | | [address] | | | | | | [phone] | | | +--------+---------+ + + + [...]
--- OUTSIDE RECORDS SUMMARY | ~2020-08-20 | XMS | Encounter Summary ---
Demographics + + + | Address | [address] | | | [place] [address] | + + + | Home Phone | | + + + | Preferred Language | Unknown | + + + | Marital Status | | + + + | Restorationist Affiliation | 1069 | + + + | Race | White | + + + | Ethnic Group | Not or | + + + Author + + + | Author | [facility] | | | and [place] | + + + | Organization | [facility] | | | and [place] | + + + | Address | Unknown | + + + | Phone | Unavailable | + + + Support + + + + + | Name | Relationship | Address | Phone | + + + + + | Per Pt None To List | ECON | [id number] | | | | | NA, | | + + + + + | Carmine Bergman | ECON | [address] | | | | | [place] | | | | | [address] | | + + + + + Care Team Providers + +------+ + | Care Kiln Loader Name | Role | Phone | + +------+ + PCP | Unavailable | + +------+ + Encounter Details +--------+ + + + + | Date | Type | Department | Care Team | Description | +--------+ + + + + | 03/24/ | Hospital | [facility] | Wilfrido Ferro, | | | 2002 | Encounter | MED CTR MP INTRA OP | MD [address] [facility] | | | | | [address] | [place], [place] | | | | | [place], [place] | [address] | | | | | [address] | | | | | | [phone] | | | +--------+ + + + [...]
--- OUTSIDE RECORDS SUMMARY | ~2020-08-20 | XMS | Encounter Summary ---
Demographics + + + | Address | [address] | | | [place] [address] | + + + | Home Phone | | + + + | Preferred Language | Unknown | + + + | Marital Status | | + + + | Uatsdin Affiliation | 1069 | + + + | Race | White | + + + | Ethnic Group | Not or | + + + Author + + + | Author | [facility] | | | and [place] | + + + | Organization | [facility] | | | and [place] | + + + | Address | Unknown | + + + | Phone | Unavailable | + + + Support + + + + + | Name | Relationship | Address | Phone | + + + + + | Per Pt None To List | ECON | [address] | | | | | NA, | | + + + + + | Carmine Bergman | ECON | [address] | | | | | [place] | | | | | [address] | | + + + + + Care Team Providers + +------+ + | Care Edge Inker Heels Name | Role | Phone | + [...] [address] [place] | [place] | joint prosthesis | | | | [place] | [phone] | ([facility]) (Primary Dx) | | | | [address] | | | | | | [phone] | | | +--------+ + + + [...] + | MISCELLANEOUS LAB | | | [phone] | + +---------+ + + | MISCELANIOUS LAB | | | [phone] | + +---------+ + + documented in this encounter Visit Diagnoses + + | Diagnosis | + + | 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
--- OUTSIDE RECORDS SUMMARY | ~2020-08-20 | XMS | Encounter Summary ---
Demographics + + + | Address | [address] | | | [place] [address] | + + + | Home Phone | | + + + | Preferred Language | Unknown | + + + | Marital Status | | + + + | Christianity Affiliation | 1069 | + + + | Race | White | + + + | Ethnic Group | Not or | + + + Author + + + | Author | [facility] | | | and [place] | + + + | Organization | [facility] | | | and [place] | + + + | Address | Unknown | + + + | Phone | Unavailable | + + + Support + + + + + | Name | Relationship | Address | Phone | + + + + + | Per Pt None To List | ECON | 685542 | | | | | NA, | | + + + + + | Carmine Bergman | ECON | [address] | | | | | [place] | | | | | [address] | | + + + + + Care Team Providers + +------+ + | Care Substation Electrician Supervisor Name | Role | Phone | + +------+ + PCP | Unavailable | + +------+ + Encounter Details +--------+ + + + + | Date | Type | Department | Care Team | Description | +--------+ + + + + | 12/30/ | Hospital | [facility] | Wilfrido Ferro, | | | 2001 | Encounter | MED CTR MP INTRA OP | MD [address] [facility] | | | | | [address] | [place], [place] | | | | | [place], [place] | [address] | | | | | [address] | | | | | | [phone] | | | +--------+ + + + [...]
--- OUTSIDE RECORDS SUMMARY | ~2020-08-20 | XMS | Encounter Summary ---
Demographics + + + | Address | [address] | | | [place] [address] | + + + | Home Phone | | + + + | Preferred Language | Unknown | + + + | Marital Status | | + + + | Anabaptist Affiliation | 1069 | + + + | Race | White | + + + | Ethnic Group | Not or | + + + Author + + + | Author | [facility] | | | and [place] | + + + | Organization | [facility] | | | and [place] | + + + | Address | Unknown | + + + | Phone | Unavailable | + + + Support + + + + + | Name | Relationship | Address | Phone | + + + + + | Per Pt None To List | ECON | 496826 | | | | | NA, | | + + + + + | Carmine Bergman | ECON | [address] | | | | | [place] | | | | | [address] | | + + + + + Care Team Providers + +------+ + | Care Lithographic Proofer Apprentice Name | Role | Phone | + [...] + + | 12/05/ | Office | [facility] | Wilfrido Ferro, | Hip joint | | 2013 | Visit | ORTHOPEDIC SURGERY | [address] | replacement by other | | | | [address] | [place] | means (Primary Dx) | | | | [place] | [address] | | | | | [address] | | | | | | [phone] | | | +--------+---------+ + + + [...] Performed At | + + + | [facility] | [place] | | Department [address] [place] | [facility] | | [ rep ct street[address]] [ rep ct [facility] [place] | | st zip] Signed | - IMAGING | | | | | Patient Name: MONROE MILLER Tobi Physician: | | | .[birth year] : 1945 Age: 68 Sex: F Unit #: [id number] | | | Exam Date: 12/05/13 Location: [facility] | | | Report #: [id number] Page: | | | %(RAD)RES..mtdd.print.filter("pg") of %(RAD) | | | RES..mtdd.print.filter("tpg") | | | | | | Accession Number: [id number] | | | PELVIS X-RAY CLINICAL HISTORY: [...] Transcribed Date/Time: 12/05/2013 13:28 | | | Negative Cleaner: <<Signature on File>> | | | | | | Javier Boles MD12/05/13 2307 <Electronically signed by Javier Boles | | | MD> Javier Boles MD 12/05/13 1221 Negative Cleaner: | | | opinions.h [id number]/13/14 1328 Wilfrido Ferro MD | | | | | + + + + + + + + | Performing | Address | City/State/Zipcode | Phone Number | | Organization | | | | + + + + + | [facility] | [address] | [place] | [phone] | | [facility] | | [address] | | | - IMAGING | | | | + + + + + documented in this encounter Visit Diagnoses + + | Diagnosis | + + | Hip joint replacement by other means - Primary | + + documented in this encounter
--- OUTSIDE RECORDS SUMMARY | ~2020-08-20 | XMS | Encounter Summary ---
Demographics + + + | Address | [address] | | | [place] [address] | + + + | Home Phone | | + + + | Preferred Language | Unknown | + + + | Marital Status | | + + + | Spiritism Affiliation | 1069 | + + + | Race | White | + + + | Ethnic Group | Not or | + + + Author + + + | Author | [facility] | | | and [place] | + + + | Organization | [facility] | | | and [place] | + + + | Address | Unknown | + + + | Phone | Unavailable | + + + Support + + + + + | Name | Relationship | Address | Phone | + + + + + | Per Pt None To List | ECON | 925395 | | | | | NA, | | + + + + + | Carmine Bergman | ECON | [address] | | | | | [place] | | | | | [address] | | + + + + + Care Team Providers + +------+ + | Care Outbound Telemarketer Name | Role | Phone | + +------+ + | No, Physician | PCP | Unavailable | + +------+ + Encounter Details +--------+ + + + + | Date | Type | Department | Care Team | Description | +--------+ + + + + | 10/21/ | Hospital | [facility] | Wilfrido Ferro, | | | 2013 - | Encounter | MED CTR SURGICAL | [address] [facility] | | | | | [address] [place] | [place], [place] | | | 10/23/ | | [place] [address] | [id number] | | | 2012 | | [phone] | | | +--------+ + + + [...] Wilfrido Ferro MD - 10/17/2013 5:31 PM [place], [place] [address] Patient Name: LACY MILLER Provider: Wilfrido Ferro MD Unit #: [id number] Location: [facility] : 1945 DATE: PREOPERATIVE HISTORY AND [...] PRIMARY CARE PHYSICIAN: Evens Simental MD, in [place] FAMILY HISTORY: Father at age 56 from [...] right hip has about 10 degrees of product managent intern al rotation. Attempts at more provoke groin pain. Leg lengths are equal. She has 5/5 motor strength in all muscle groups bilateral lower extremities. She has intact pedal pulses, int act sensation all dermatomes bilateral lower extremities. Her x-rays were reviewed and show severe and degenerative ibdv-jk-votm arthrosis of the ri ght hip, with circumferential osteophytes. DIAGNOSIS Qsmq-fu-owxw degenerative arthrosis of the right hip. PLAN: Right total hip arthroplasty. The goals of the surgery, the inherent surgical risks and medical risks and reasonable expectations for recovery are all discussed. The patient u nderstands and agrees with plan for a right total hip arthroplasty, direct anterior approac h. DICTATED BY: Wilfrido Ferro MD Orthopedics JOB #: [id number] EXT JOB #:[id number] EDITED: 10/18/2013 12:59 <<Signature on File>> Wilfrido Ferro MD1 12/19/12 1059 <Electronically signed by Wilfrido Ferro MD> documented in this encounter Miscellaneous Notes Op Note - Rodrick Irvin MD - 10/21/2013 9:14 [place] [address] Patient Name: LACY MILLER Provider: Wilfrido Ferro MD Unit #: [id number] Location: [facility] : 1945 DATE: 10/21/2013 OPERATING CO-SURGEON: [...] consent for surgery, she was brought to [facility] operating room where she underwent a femoral [...] BY: Rodrick Irvin MD Orthopedics JOB #: [id number] EXT JOB #:[id number] cc: Wilfrido Ferro MD <<Signature on File>> Rodrick Irvin MD10/22/13 0746 < p Note - Will Wilfrido drake MD - 10/21/2013 11:59 [place] [address] Patient Name: LACY MILLER Provider: Wilfrido Ferro MD Unit #: [id number] Location: [address] [place], [place] [address]t #: [id number] : 1945 DATE: 10/21/2013 OPERATIVE REPORT COSURGEONS: [...] BY: Wilfrido Ferro MD Orthopedics JOB #: [id number] EXT JOB #:[id number] <<Signature on File>> Wilfrido Ferro MD1 12/22/12 [...] | | ORAL ANTICOAGULATION | | [facility] | | | | RANGE | | [...] + + | Performing | Address | City/[facility]/Zipcode | Phone Number | | Organization | | | | + + + + + | [facility] | [address] | [place], [place] | [phone] | | [facility] | | [address] | | | - LABORATORY | | | | + + + + + | [facility] | [address] | [place] | | | [facility] | | [address], [facility] | | | - LABORATORY | | [...] + | [facility] | [address] | [place], [place] | [phone] | | [facility] | | [address] | | | - LABORATORY | | | | + + + + + | [facility] | [address] | [place], [place] | | | [facility] | | [id number] [place] [address] | | | - LABORATORY | | [...] + | [facility] | [address] | [place] | [phone] | | [facility] | | [address] | | | - LABORATORY | | | | + + + + + | [facility] | [address] | [place] | | | [facility] | | [address], [facility] | | | - LABORATORY | | [...] + | [facility] | [address] | [place] | [phone] | | [facility] | | [address] | | | - LABORATORY | | | | + + + + + | [facility] | [address] | [place] | | | [facility] | | [address] [place] [address] | | | - LABORATORY | | [...] + | [facility] | [address] | [place] | [phone] | | [facility] | | [address] | | | - LABORATORY | | | | + + + + + | [facility] | [address] | [place], [place] | | | [facility] | | [address] | | | - LABORATORY | [...] | | | | gm/dL | [facility] | | | | | [...] [address] | [place] | [phone] | | [facility] | | [address] | | | - LABORATORY | | | | + + + + + | [facility] | [address] | [place], [place] | | | [facility] | | [address], [facility] | | | - LABORATORY | | | | + + + + + XR Pelvis 1 or 2 Vw (10/21/2013 12:49 PM PST) + + | Specimen | + + | | + + + + + | Narrative | Performed At | + + + | [facility] | [facility] | | Department [address] , [place] | [facility] | | [ rep ct street1+2] [ rep ct [facility] | | st zip] Signed | - IMAGING | | | | | Patient Name: LACY MILLER Physician: | | | : 1945 Age: 68 Sex: F Unit #: [id number] | | | Exam Date: 10/21/13 Location: [address] [place] [address] | | | Report #: [id number] Page: | | | %(RAD)RES..mtdd.print.filter("pg") of %(RAD) | | | RES..mtdd.print.filter("tpg") | | | | | | Accession Number: [id number] | | | SINGLE AP PELVIS, 10/21/2013 [...] | | | Transcribed Date/Time: 10/21/2013 13:04 Audio Visual Equipment Rental Clerk: | | | <<Signature on File>> | | | Igor Becerril | | | MD Rodrick10/21/13 1314 <Electronically signed by Igor Mensah MD> | | | Igor Mensah MD 10/21/13 1240 Audio Visual Equipment Rental Clerk: | | | Unified Colorpatricia Ebceaylvnbkwy28/29/13 1301 | | + + + + + + + + | Performing | Address | City/State/Zipcode | Phone Number | | Organization | | | | + + + + + | [facility] | [address] | [place] | [phone] | | [facility] | | [address] | | | - IMAGING | | | | + + + + + documented in this encounter Visit Diagnoses Not on filedocumented in this encounter
--- OUTSIDE RECORDS SUMMARY | ~2020-08-20 | XMS | Encounter Summary ---
Demographics + + + | Address | [address] | | | [place] [address] | + + + | Home Phone | | + + + | Preferred Language | Unknown | + + + | Marital Status | | + + + | Sabianist Affiliation | 1069 | + + + | Race | White | + + + | Ethnic Group | Not or | + + + Author + + + | Author | [facility] | | | and [...] Pt None To List | ECON | [address] | | | | | NA, | | + + + + + | Carmine [place] | ECON | [address] | | | | | [place] | | | | | [address] | | + + + + + Care Team Providers + +------+ + | Care Hospice Physician Name | Role | Phone | + +------+ + | Tomas Simental MD | PCP | | + +------+ + Encounter Details +--------+ + + + + | Date | Type | Department | Care Team | Description | +--------+ + + + + | 07/07/ | Hospital | [facility] | Wilfrido Ferro, | Other complications | | 2013 | Encounter | MED CTR VINCENT XRAY | [address] | due to internal | | | | [address] [place] | [place], [place] | joint prosthesis | | | | [place], [place] | [address] | (HCC) | | | | [address] | | | | | | [phone] | | | +--------+ + + + [...] + | MISCELLANEOUS LAB | | | [phone] | + +---------+ + + | MISCELANIOUS LAB | | | [phone] | + +---------+ + + documented in this encounter Visit Diagnoses + + | Diagnosis | + + | 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
--- OUTSIDE RECORDS SUMMARY | ~2020-08-20 | XMS | Encounter Summary ---
Demographics + + + | Address | [address] | | | [place] [address] | + + + | Home Phone | | + + + | Preferred Language | Unknown | + + + | Marital Status | | + + + | Scientologist Affiliation | 1069 | + + + | Race | White | + + + | Ethnic Group | Not or | + + + Author + + + | Author | [facility] | | | and [place] | + + + | Organization | [facility] | | | and [place] | + + + | Address | Unknown | + + + | Phone | Unavailable | + + + Support + + + + + | Name | Relationship | Address | Phone | + + + + + | Per Pt None To List | ECON | [address] | | | | | NA, | | + + + + + | Carmine Bergman | ECON | [address] | | | | | [place] | | | | | [address] | | + + + + + Care Team Providers + +------+ + | Care Perinatal Specialist Name | Role | Phone | + [...] | Orthopedic | Diagnoses | Self, | [place], | | | | Surgery | Right hip | Referral, | Wilfrido Roa MD | | | | | pain | MD [facility] | [address] [place] [address] | | | | | | | [place] | | | | | | | [place] [address] | | | | | | | Phone: | | | | | | | [phone] | | | | | | | Fax: | | | | | | | [phone] | +--------+--------+ + + + + Encounter Details +--------+---------+ + + + | Date | Type | Department | Care Team | Description | +--------+---------+ + + + | 09/28/ | Office | [facility] | Wilfrido Ferro, | Right hip pain | | 2012 | Visit | ORTHOPEDIC SURGERY | MD Blane RIVERS | (Primary Dx); | | | | [address] | [place] | Osteoarthritis of | | | | [place] | [id number] | right hip | | | | [address] | | | | | | [phone] | | | +--------+---------+ + + + [...] 09/28/2013 12:00 AM PST ORTHOPEDICS [place] [address] FAX: [phone] OFFICE VISIT PATIENT IDENTIFICATION: Paige is a [...] PRIMARY CARE PHYSICIAN: Evens Simental MD, in [place] FAMILY HISTORY: Father at age 56, liver [...] is reviewed and shows severe and advanced viru-ju-ckte arthrosis of the right hip with subchondral cysts and circumferential osteophytes. DIAGNOSIS: [id number] DEGENERATIVE ARTHRITIS OF THE RIGHT HIP. The [...] Ferro MD KW / SHABANA JOB #: [id number] signed by Wilfrido Ferro MD at 09/29/2013 9:05 AM PSTdocumen stephy in this encounter Miscellaneous Notes Miscellaneous - ONBASE SCAN [facility] - 09/28/2013 12:00 AM PST iscellaneous - ONBASE SCAN [facility] - 09/28/2013 12:00 AM PSTEle ctronically signed by Keenan [facility] at 10/03/2013 10:01 AM PSTdocumented in this encounter Plan of Treatment Not on filedocumented as of this encounter Results XR Hip Right 2 + Vw (09/28/2013 11:11 AM PST) + + | Specimen | + + | | + + + + + | Narrative | Performed At | + + + | [facility] | [place] | | [address] [facility] | | [ rep ct street1+2] [ rep ct [facility] | | st zip] Signed | - IMAGING | | | | | Patient Name: LACY MILLER Physician: | | | . : 1945 Age: 68 Sex: F Unit #: [id number] | | | Exam Date: 09/28/13 Location: [facility] | | | Report #: [id number] Page: | | | %(RAD)RES..mtdd.print.filter("pg") of %(RAD) | | | RES..mtdd.print.filter("tpg") | | | | | | Accession Number: [id number] | | | TWO VIEWS RIGHT HIP [...] Transcribed Date/Time: | | | 09/28/2013 11:33 Tuber Machine Operator: | | | <<Signature on File>> | | | Igor Becerril | | | MD Rodrick09/28/13 2306 <Electronically signed by Igor Mensah MD> | | | Igor Mensah MD 09/28/13 1111 Tuber Machine Operator: | | | Webmedx Mqzzvcfneannm81/06/13 1133 Wilfrido Ferro MD | | | | | + + + + + + + + | Performing | Address | City/State/Zipcode | Phone Number | | Organization | | | | + + + + + | [facility] | [address] | [place] | [phone] | | [facility] | | [address] | | | - IMAGING | | [...]
--- OUTSIDE RECORDS SUMMARY | ~2020-08-20 | XMS | Encounter Summary ---
Demographics + + + | Address | [address] | | | [place] [address] | + + + | Home Phone | | + + + | Preferred Language | Unknown | + + + | Marital Status | | + + + | Congregation Affiliation | 1069 | + + + | Race | White | + + + | Ethnic Group | Not or | + + + Author + + + | Author | [facility] | | | and [place] | + + + | Organization | [facility] | | | and [place] | + + + | Address | Unknown | + + + | Phone | Unavailable | + + + Support + + + + + | Name | Relationship | Address | Phone | + + + + + | Per Pt None To List | ECON | [address] | | | | | NA, | | + + + + + | Carmine Bergman | ECON | [address] | | | | | [place] | | | | | [address] | | + + + + + Care Team Providers + +------+ + | Care Picking Tech Name | Role | Phone | + +------+ + PCP | Unavailable | + +------+ + Encounter Details +--------+ + + + + | Date | Type | Department | Care Team | Description | +--------+ + + + + | 11/30/ | Hospital | [facility] | Wilfrido Ferro, | | | 2001 | Encounter | MED CTR XRAY [address] | [address] [facility] | | | | | [place] | [place], [place] | | | | | [place] [address] | [address] | | | | | [phone] | | | +--------+ + + + [...]
--- OUTSIDE RECORDS SUMMARY | ~2020-08-20 | XMS | Encounter Summary ---
Demographics + + + | Address | [address] [address] | | | [place] [address] | + + + | Home Phone | | + + + | Preferred Language | Unknown | + + + | Marital Status | | + + + | Adventist Affiliation | 1069 | + + + | Race | White | + + + | Ethnic Group | Not or | + + + Author + + + | Author | [facility] | | | and [place] | + + + | Organization | [facility] | | | and [place] | + + + | Address | Unknown | + + + | Phone | Unavailable | + + + Support + + + + + | Name | Relationship | Address | Phone | + + + + + | Per Pt None To List | ECON | [address] | | | | | NA, | | + + + + + | Carmine Bergman | ECON | [address] | | | | | [place] | | | | | [address] | | + + + + + Care Team Providers + +------+ + | Care Site Acquisition Specialist Name | Role | Phone | [...] | Orthopedic | Diagnoses | Self, | [place], | | | | Surgery | Right hip | Referral, | Wilfrido Roa MD | | | | | pain | MD AUBRIE | [address] [place] [address] | | | | | | | [place] | | | | | | | [place] [address] | | | | | | | Phone: | | | | | | | [phone] | | | | | | | Fax: | | | | | | | [phone] | +--------+--------+ + + + + Encounter Details +--------+---------+ + + + | Date | Type | Department | Care Team | Description | +--------+---------+ + + + | 09/28/ | Office | [facility] | Wilfrido Ferro, | Right hip pain | | 2012 | Visit | ORTHOPEDIC SURGERY | MD Blane RIVERS | (Primary Dx); | | | | [place] | [place] | Osteoarthritis of | | | | [place] | [id number] | right hip | | | | [address] | | | | | | [phone] | | | +--------+---------+ + + + [...] MD - 09/28/2013 12:00 AM PST ORTHOPEDICS [place] [address] FAX: [phone] OFFICE VISIT PATIENT IDENTIFICATION: Paige is a [...] PRIMARY CARE PHYSICIAN: Evens Simental MD, in [place] FAMILY HISTORY: Father at age 56, liver [...] is reviewed and shows severe and advanced bumv-cz-wush arthrosis of the right hip with subchondral cysts and circumferential osteophytes. DIAGNOSIS: [id number] DEGENERATIVE ARTHRITIS OF THE RIGHT HIP. The [...] Ferro MD KW / SHABANA JOB #: [id number] signed by Wilfrido Ferro MD at 09/29/2013 9:05 AM PSTdocumen stephy in this encounter Miscellaneous Notes Miscellaneous - ONBASE SCAN [facility] - 09/28/2013 12:00 AM PST iscellaneous - ONBASE SCAN [facility] - 09/28/2013 12:00 AM PSTEle ctronically signed by [facility] at 10/03/2013 10:01 AM PSTdocumented in this encounter Plan of Treatment Not on filedocumented as of this encounter Results XR Hip Right 2 + Vw (09/28/2013 11:11 AM PST) + + | Specimen | + + | | + + + + + | Narrative | Performed At | + + + | [facility] | [place] | | [address] [facility] | | [ rep ct street1+2] [ rep ct [facility] | | st zip] Signed | - IMAGING | | | | | Patient Name: LACY MILLER Physician: | | | . : 1945 Age: 68 Sex: F Unit #: [id number] | | | Exam Date: 09/28/13 Location: [facility] [place] | | | Report #: [id number] Page: | | | %(RAD)RES..mtdd.print.filter("pg") of %(RAD) | | | RES..mtdd.print.filter("tpg") | | | | | | Accession Number: [id number] | | | TWO VIEWS RIGHT HIP [...] Transcribed Date/Time: | | | 09/28/2013 11:33 Beef Grader: | | | <<Signature on File>> | | | Igro Becerril | | | MD Rodrick09/28/13 2306 <Electronically signed by Igor Mensah MD> | | | Igor Mensah MD 09/28/13 1111 Beef Grader: | | | Webmedx Alogkrcnnodtl87/06/13 1133 Wilfrido Ferro MD | | | | | + + + + + + + + | Performing | Address | City/State/Zipcode | Phone Number | | Organization | | | | + + + + + | [facility] | [address] | [place] | [phone] | | [facility] | | [address] | | | - IMAGING | | [...]
--- OUTSIDE RECORDS SUMMARY | ~2020-08-20 | XMS | Encounter Summary ---
Demographics + + + | Address | [address] [address] | | | [place] [address] | + + + | Home Phone [...] Author | [facility] [...] Pt None To List | ECON | [id number] | | | | | NA, | | + + + + + | Carmine Bergman | ECON | [address] | | | | | [place] | | | | | [address] | | + + + + + Care Team Providers + +------+ + | Care Plumber Helper Name | Role | Phone | + +------+ + | No, Physician | PCP | Unavailable | + +------+ + Encounter Details +--------+ + + + + | Date | Type | Department | Care Team | Description | +--------+ + + + + | 10/11/ | Hospital | [facility] | Wilfrido Ferro, | Heart murmur; Family | | 2012 | Encounter | MED CTR XRAY [address] | history of heart | | | | [place] | [place] | disease in female | | | | [place] [address] | 313242 | family member before | | | | [phone] | | age 66; | | | [...] | [facility] | [place] | | Department [address] [facility] | [facility] | | [ rep ct street1+2] [ rep [facility] | | st zip] Signed | - IMAGING | | | | | Patient Name: MONROE MILLER Physician: | | | . : 1945 Age: 68 Sex: F Unit #: [id number] | | | Exam Date: 10/11/13 Location: [facility] [place] | | | Report #: [id number] Page: | | | %(RAD)RES..mtdd.print.filter("pg") of %(RAD) | | | RES..mtdd.print.filter("tpg") | | | | | | Accession Number: [id number] | | | RIGHT HIP, 10/11/2013 CLINICAL [...] Transcribed Date/Time: 10/11/2013 12:26 | | | Horse Racetrack Manager: <<Signature on File>> | | | | | | Néstor Rust MD10/11/13 1312 <Electronically signed by | | | Néstor Rust MD> Néstor Rust MD 10/11/13 | | | 1147 Horse Racetrack Manager: [employer] Ctiibaxlrgurn29/19/13 1226 | | | iWlfrido Ferro MD | | + + + + + + + + | Performing | Address | City/State/Zipcode | Phone Number | | Organization | | | | + + + + + | [facility] | [address] | [place] | [phone] | | [facility] | | [address] | | | - IMAGING | | [...] + | [facility] | [address] | [place] | [phone] | | [facility] | | [address] | | | - LABORATORY | | | | + + + + + | [facility] | [address] | [place] | | | [facility] | | [address] | [...] [address] | [place] | [phone] | | [facility] | | [address] | | | - LABORATORY | | | | + + + + + | [facility] | [address] | [place] | | | [facility] | | [address] | [...] + | [facility] | [address] | [place] | [phone] | | [facility] | | [address] | | | - LABORATORY | | | | + + + + + | [facility] | [address] | [place] | | | [facility] | | [address] [place] [address] | | | - LABORATORY | | [...] + | [facility] | [address] | [place], [place] | [phone] | | [facility] | | [address] | | | - LABORATORY | | | | + + + + + | [facility] | [address] | [place], [place] | | | [facility] | | [address] [place] [address] | | | - LABORATORY | | [...]
--- OUTSIDE RECORDS SUMMARY | ~2020-08-20 | XMS | Encounter Summary ---
Demographics + + + | Address | [address] | | | [place] [address] | + + + | Home Phone | | + + + | Preferred Language | Unknown | + + + | Marital Status | | + + + | Jehovah'S Witness Affiliation | 1069 | + + + | Race | White | + + + | Ethnic Group | Not or | + + + Author + + + | Author | [facility] | | | and [place] | + + + | Organization | [facility] | | | and [place] | + + + | Address | Unknown | + + + | Phone | Unavailable | + + + Support + + + + + | Name | Relationship | Address | Phone | + + + + + | Per Pt None To List | ECON | [address] | | | | | NA, | | + + + + + | Carmine Bergman | ECON | [address] | | | | | [place] | | | | | [address] | | + + + + + Care Team Providers + +------+ + | Care Diesel Dinkey Operator Name | Role | Phone | + +------+ + | No, Physician | PCP | Unavailable | + +------+ + Encounter Details +--------+ + + + + | Date | Type | Department | Care Team | Description | +--------+ + + + + | 09/28/ | Hospital | [facility] | Wilfrido Ferro, | Right hip pain | | 2013 | Encounter | MED CTR XRAY [address] | [address] [facility] | | | | | [place] | [place], [place] | | | | | [place] [address] | [address] | | | | | [phone] | | | +--------+ + + + [...] Performed At | + + + | [facility] | [place] | | Department [address] [place] [address] | [facility] | | [ rep ct street1+2] [ rep ct [facility] | | st zip] Signed | - IMAGING | | | | | Patient Name: LACY MILLER Physician: | | | WILL. : 1945 Age: 68 Sex: F Unit #: [id number] | | | Exam Date: 09/28/13 Location: [facility] [place] | | | Report #: [id number] Page: | | | %(RAD)RES..mtdd.print.filter("pg") of %(RAD) | | | RES..mtdd.print.filter("tpg") | | | | | | Accession Number: [id number] | | | TWO VIEWS RIGHT HIP [...] Transcribed Date/Time: | | | 09/28/2013 11:33 Catalytic Case Operator: MCKENZIE | | | <<Signature on File>> | | | Igor Becerril | | Mindi Mensah MD09/28/13 2306 <Electronically signed by Igor Mensah MD> | | | Igor Mensah MD 09/28/13 1111 Catalytic Case Operator: | | | Blend Labsmedx Oowzslxmrhmsa47/06/13 1133 Wilfrido Ferro MD | | | | | + + + + + + + + | Performing | Address | City/State/Zipcode | Phone Number | | Organization | | | | + + + + + | [facility] | [address] | [place] | [phone] | | [facility] | | [address] | | | - IMAGING | | | | + + + + + documented in this encounter Visit Diagnoses + + | Diagnosis | + + | Right hip pain Pain in joint, pelvic region and thigh | + + documented in this encounter
--- OUTSIDE RECORDS SUMMARY | ~2020-08-20 | XMS | Encounter Summary ---
Demographics + + + | Address | [address] [address] | | | [place] [address] | + + + | Home Phone | | + + + | Preferred Language | Unknown | + + + | Marital Status | | + + + | Tenriism Affiliation | 1069 | + + + | Race | White | + + + | Ethnic Group | Not or | + + + Author + + + | Author | [facility] | | | and [place] | + + + | Organization | [facility] | | | and [place] | + + + | Address | Unknown | + + + | Phone | Unavailable | + + + Support + + + + + | Name | Relationship | Address | Phone | + + + + + | Per Pt None To List | ECON | [address] | | | | | NA, | | + + + + + | Carmine Bergman | ECON | [address] | | | | | [place] | | | | | [address] | | + + + + + Care Team Providers + +------+ + | Care Bonding Supervisor Name | Role | Phone | + +------+ + PCP | Unavailable | + +------+ + Encounter Details +--------+ + + + + | Date | Type | Department | Care Team | Description | +--------+ + + + + | 03/24/ | Hospital | [facility] | Wilfrido Ferro, | | | 2002 | Encounter | MED CTR MP INTRA OP | MD [address] [facility] | | | | | [address] | [place], [place] | | | | | [place], [place] | [address] | | | | | [address] | | | | | | [phone] | | | +--------+ + + + [...]
--- OUTSIDE RECORDS SUMMARY | ~2020-08-20 | XMS | Encounter Summary ---
Demographics + + + | Address | [address] [address] | | | [place] [address] | + + + | Home Phone | | + + + | Preferred Language | Unknown | + + + | Marital Status | | + + + | Denominational Affiliation | 1069 | + + + | Race | White | + + + | Ethnic Group | Not or | + + + Author + + + | Author | [facility] | | | and [place] | + + + | Organization | [facility] | | | and [place] | + + + | Address | Unknown | + + + | Phone | Unavailable | + + + Support + + + + + | Name | Relationship | Address | Phone | + + + + + | Per Pt None To List | ECON | [address] | | | | | NA, | | + + + + + | Carmine Bergman | ECON | [address] | | | | | [place] | | | | | [address] | | + + + + + Care Team Providers + +------+ + | Care Net Sorter Name | Role | Phone | + +------+ + PCP | Unavailable | + +------+ + Encounter Details +--------+ + + + + | Date | Type | Department | Care Team | Description | +--------+ + + + + | 12/03/ | Hospital | [facility] | Wilfrido Ferro, | | | 2001 | Encounter | MED CTR XRAY [address] | [address] [facility] | | | | | [place] | [place], [place] | | | | | [place] [address] | [address] | | | | | [phone] | | | +--------+ + + + [...]
--- OUTSIDE RECORDS SUMMARY | ~2020-08-20 | XMS | Encounter Summary ---
Demographics + + + | Address | [address] | | | [place] [address] | + + + | Home Phone | | + + + | Preferred Language | Unknown | + + + | Marital Status | | + + + | Mandaen Affiliation | 1069 | + + + | Race | White | + + + | Ethnic Group | Not or | + + + Author + + + | Author | [facility] | | | and [place] | [...] Pt None To List | ECON | [address] | | | | | NA, | | + + + + + | Carmine Bergman | ECON | [address] | | | | | [place] | | | | | [address] | | + + + + + Care Team Providers + +------+ + | Care Insulator Apprentice Name | Role | Phone | [...] + | 07/03/ | Telephone | [facility] | Wilfrido eFrro, | Hip Pain (Fell) | | 2013 | | ORTHOPEDIC SURGERY | [address] | | | | [address] [place] | [place] | | | | | [place] | [address] | | | | | [address] | | | | | | [phone] | | | +--------+ + + + [...]
--- OUTSIDE RECORDS SUMMARY | ~2020-08-20 | XMS | Encounter Summary ---
Demographics + + + | Address | [address] | | | [place] [address] | + + + | Home Phone [...] + | Author | [facility] | | | and [...] Pt None To List | ECON | [address] | | | | | NA, | | + + + + + | Carmine Bergman | ECON | [address] | | | | | [place] | | | | | [address] | | + + + + + Care Team Providers + +------+ + | Care Rock Worker Name | Role | Phone | [...] [address] [place] | [place] | joint prosthesis | | | | [place] | [phone] | ([facility]) (Primary Dx) | | | | [address] | | | | | | [phone] | | | +--------+ + + + [...] + | MISCELLANEOUS LAB | | | [phone] | + +---------+ + + | MISCELANIOUS LAB | | | [phone] | + +---------+ + + documented in this encounter Visit Diagnoses + + | Diagnosis | + + | 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
--- NOTE | 2020-08-21 00:36 | NUR ---
08/21/20 0036 Sheets,[place]andra 0020 PT ARRIVED TO PACU ON 6L VIA MASK, PT ASLEEP AND SLIGHTLY REACTIVE TO TACTILE STIMULI. PT COUGHING. VSS. PILLOW PLACED ON ABD TO HELP BRACE ABD WHILE COUGHING. 0033 PT WAKES TO TACTILE STIMULI AND IS REORIENTED TO PACU. PT DENIES PAIN AND FALLS EASILY BACK TO SLEEP.
--- NOTE | 2020-08-21 01:05 | NUR ---
PT ARRIVED TO THE FLOOR VIA BED FROM PACU. PT'S FAMILY WAITING IN ROOM. PT VERY DROWSY, WAKES BRIEFLY AND ANSWERS QUESTIONS APPROPRIATELY. FALLS QUICKLY BACK TO SLEEP. DENIES PAIN, NAUSEA, OR SOB. ABD DISTENDED. BT'S HYPOACTIVE. DRESSING TO MIDLINE C/D/I. IV SITES FLUSHED X 3, WNL. PT WITH CALL LIGHT IN REACH. FAMILY WILL RETURN IN THE AM.
--- NOTE | 2020-08-21 02:38 | NUR ---
PT RESTING IN BED WITH EYES CLOSED. RESPIRATIONS EVEN AND UNLABORED. POST OP VS OBTAINED, WNL. PT DOES NOT WAKE DURING VS. CALL LIGHT IN PT'S REACH. WILL CONTINUE TO MONITOR.
--- NOTE | 2020-08-21 03:44 | NUR ---
PT RESTINGIN BED WITH EYES CLOSED. WAKES EASILY. PT STATES "I FEEL GREAT". DENIES NEEDS. POC FOR THIS SHIFT DISCUSSED. CALL LIGHT IN PT'S REACH, AGREES TO USE FOR NEEDS.
--- NOTE | 2020-08-21 04:53 | NUR ---
PT RESTING IN BED WITH EYES CLOSED. WAKES EASILY WHILE GLAZIER ARTIST OBTAINING VS. PT SSTATES THAT PAIN IS WELL CONTROLLED. DENIES NEEDS AT THIS TIME. CALL LIGHT IN REACH.
--- NOTE | 2020-08-21 06:34 | NUR ---
PT ASSESSMENT COMPLETE. PT IN VERY GOOD SPIRITS. DENIES PAIN. CONTINUES TO STATE HOW GREAT SHE FEELS AND IS VERY THANKFUL FOR HER CARE. PT ASKING MANY APPROPRIATE QUESTIONS ABOUT HER CURRENT ILLNESS AND SURGICAL PROCEDURE. EDUCATION PROVIDED, VERBAL AND WRITTEN. PT VERY THANKFUL FOR THIS. BT'S HYPOACTIVE. ABD NON TENDER, PT STATES IT "ALMOST FEELS NUMB". DRESSING TO MIDLINE ABD C/D/I. PT REQUESTS JELLO, STATES THAT SHE WILL BE READY TO GET UP AND WALK SOON. PT DECLINES FURTHER NEEDS AT THIS TIME. CALL LIGHT IN REACH.
--- NOTE | 2020-08-21 07:30 | NUR ---
Pt awake sitting up in bed, alert and oriented x4. Pt is on room air, respirations even and non labored. Pt reports no abdominal pain at this time. Dressing to abd is CDI. Main intact, patent and draining appropriately. Personal supplies and call light within reach.
--- NOTE | 2020-08-21 07:30 | NUR ---
PATIENT RESTING IN BED. WHITE BOARD UPDATED. PATIENT'S HANDS AND FACE WASHED. CALL LIGHT WITHIN REACH. NO OTHER NEEDS AT THIS TIME
--- NOTE | 2020-08-21 09:00 | NUR ---
CM initial assessment completed. Pt lives on property with irrigation and animals. 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 Has children and grandchildren she can call for assistance. States, "I can do anything a man can do". Pt states she is independent and works hard. Denies needs or help. Insisting she is going home today. Discussed this is something she will need to discuss with Dr. Samuel. Cautioned to not pederson home until has released. Encouraged safe discharge. Pt denies use of DME.
--- NOTE | 2020-08-21 09:34 | NUR ---
PATIENT RESTING IN BED. FAMILY AND STUDENT RN IN ROOM. VITAL SIGNS AND I&O DONE. CALL LIGHT WITHIN REACH. NO OTHER NEEDS AT THIS TIME
--- NOTE | 2020-08-21 10:36 | NUR ---
Main catheter removed per provider order. 9ML saline removed from balloon prior to removal, catheter tip intact. Pt tolerated well. Patient now due to void. No needs at this time. Call light within reach.
--- NOTE | 2020-08-21 10:55 | OR ---
[facility] [address], [place] [address] Signed DATE OF OPERATION: 08/20/2020 SURGEON: Emmy Duque MD PREOPERATIVE DIAGNOSES: 1. Small bowel ischemia, possible CLOSED LOOP bowel obstruction in the pelvis. 2. History of hysterectomy. POSTOPERATIVE DIAGNOSIS: Closed loop Bowel obstruction related to adhesive band with intestinal ischemia CEDURE: Laparotomy with division of adhesive band and detorsion of bowel and congregational of blood flow to small bowel. ANESTHESIA: General endotracheal; Clair L Alondra, OPERATIONS SUPERVISOR 2ND SHIFT, and tap block. INDICATION: This 75-year-old white woman was evaluated at 4:00 p.m. in the [facility] by Dr. Shannon with ongoing care subsequently assumed by Dr. Hanna. The patient had severe sudden onset of lower abdominal pain earlier in the day. Her evaluation showed an elevated lactic acid level of 3.3, white count elevated to 12.7, and a CT scan was performed which showed presumed multiple bowel loops with ischemia and possible obstruction, mostly located in the pelvis. The patient has undergone a transverse abdominal incision for in the past as well as prior hysterectomy. I was consulted about 10:00 p.m. and immediate additional fluid resuscitation was undertaken, broad-spectrum antibiotic meropenem given, and recommendation for laparotomy promptly for possible ischemic bowel. She understands as does her granddaughter the risks of bleeding, infection, need for bowel resection, need for other indicated procedures. Understanding this, she wished to proceed. FINDINGS: Indeed, there was a fair amount of inflammatory fluid within the pelvis. It was slightly hemorrhagic. The segment of bowel was definitely completely obstructed by a dense adhesive band. Division of the band allowed for congregational of blood flow to the Electronically Signed By: EMMY DUQUE MD 08/21/20 1055 PATIENT NAME: MONROE MILLER OPERATIVE REPORT DATE OF : 47 REPORT #: [id number] PHYSICIAN: EMMY DUQUE MD PCP: JESSICA HUTCHINSON REPORT IS CONFIDENTIAL AND NOT TO BE RELEASED WITHOUT AUTHORIZATION [facility] [address], [place] [address] Signed obstructed segment. Although intensely red and in some areas cyanotic initially once the adhesion was relieved and the bowel allowed to be freed of its vascular and enteric obstructive process, congregational of blood flow to the intestine was noted. All segments of the bowel were fully peristaltic. After appropriate amount of waiting and warm saline irrigation the bowel was determined to be viable. Actual resection of bowel was not required. The measured length of compromised bowel was 3 feet. Additionally noted was normal terminal ilium proper. The obstructed segment was measured as 3 feet in length in total. This was mostly a portion of ileum and distal jejunum. There was firm stool within the right colon. There was no sign of colonic ischemia. There was no mesenteric adenopathy, carcinomatosis, or other problem. DESCRIPTION OF PROCEDURE: The patient was brought to the operating room, given a general endotracheal anesthetic. She received preoperative antibiotic meropenem and fluid resuscitation prior to operating room interventions. She was given a general endotracheal anesthetic by rapid sequence induction technique and subsequently, a nasogastric tube was placed. There was minimal if any output from the tube. A Main catheter was placed. The abdomen was prepared with a chlorhexidine solution after clipping and draped sterilely. An infraumbilical incision was made in the abdomen and the abdomen entered without problem showing some bloody fluid in the lower abdomen. There ws no sign of purulence. Evaluation showed a significant segment of small bowel that was ischemic in appearance. Some of it was intensely erythematous and some of it cyanotic ( purple) in appearance. It was ultimately found that a dense adhesive band in the region of the mesentery was the cause of the obstruction. The adhesion was elevated and transected with electrocautery. This freed the bowel entirely. The small bowel then was removed from the abdominal cavity completely and irrigation undertaken with warm saline solution. Careful inspection of the segment of bowel that had been obstructed and ischemic was undertaken. The segment was 3 feet long and measured carefully. Tweaking of the bowel showed it to have retained peristalsis. The mesentery did not appear thrombotic or ischemic. The bowel was replaced into the abdomen and warm saline used to bathe the bowel. After appropriate length of time of waiting, it was re-evaluated and although mansoor and somewhat hemorrhagic in appearance it appeared viable. Resection of the bowel was deemed unnecessary. The small bowel was returned to the abdominal cavity. Additional examination showed firm stool and a relatively mobile right colon. The segments of bowel not previously obstructed, were completely viable and without signs of primary pathology otherwise. Plans were then made for closure. The nasogastric tube that had been placed after Electronically Signed By: EMMY DUQUE MD 08/21/20 1055 PATIENT NAME: MONROE MILLER OPERATIVE REPORT DATE OF : 47 REPORT #: [id number] PHYSICIAN: EMMY DUQUE MD PCP: JESSICA HUTCHINSON REPORT IS CONFIDENTIAL AND NOT TO BE RELEASED WITHOUT AUTHORIZATION [address] [address] Signed induction was palpated was then withdrawn as there was no distention of the bowel or stomach. The midline fascia was reapproximated with running bidirectional #1 PDS suture. The skin was closed with running subcuticular 3-0 Vicryl. Steri-Strips were applied as was a silver sponge dressing. The patient then underwent a tap block by the station engineer chief for postoperative analgesic benefit. She was extubated in the operating room, anticipating transfer to recovery room in good condition. Blood loss was relatively minimal. Sponge, needle, and instrument counts were reported as correct x3. MD HIMA Taylor/MITA /[id number] cc: TIFFANY Sloan MD Dr. Brian Floyd [facility] Reno Shannon MD Copies: JESSICA HUTCHINSON RUSSELL BARR MD FROMMLET, MICHAEL MD ~ Electronically Signed By: EMMY DUQUE MD 08/21/20 1055 PATIENT NAME: MONROE MILLER OPERATIVE REPORT DATE OF : 47 REPORT #: [id number] PHYSICIAN: EMMY DUQUE MD PCP: JESSICA HUTCHINSON REPORT IS CONFIDENTIAL AND NOT TO BE RELEASED WITHOUT AUTHORIZATION
[2020-08-21] MEDS ORDERED: PYCNOGENOL PO (11:36)
[2020-08-21] MEDS ORDERED: VITAMIN C1000 MG PO (11:37)
[2020-08-21] MEDS ORDERED: KELP150 MC1 PO (11:37)
[2020-08-21] MEDS ORDERED: POTASSIUM GLUCO90 MG PO (11:37)
[2020-08-21] MEDS ORDERED: GLUCOSAMINE &1 EAC1 PO (11:38)
[2020-08-21] MEDS ORDERED: MULTI VITAMIN1 EACH PO (11:39)
[2020-08-21] MEDS ORDERED: CALCIUM-MAG-ZI1 EACH PO (11:41)
--- NOTE | 2020-08-21 11:42 | NUR ---
MED REC COMPLETE
--- NOTE | 2020-08-21 14:05 | NUR ---
PATIENT RESTING IN BED. GRANDDAUGHTER IN ROOM. VITAL SIGNS AND I&O DONE. HIGH TEMPERATURE. RN NOTIFIED. CALL LIGHT WITHIN REACH. NO OTHER NEEDS AT THIS TIME
--- NOTE | 2020-08-21 15:29 | NUR ---
CALL LIGHT ANSWERED. PATIENT USING THE BATHROOM. GRANDDAUGHTER IN ROOM. PATIENT BACKS TO BED. ICE WATER GIVEN. CALL LIGHT WITHIN REACH. NO OTHER NEEDS AT THIS TIME
--- NOTE | 2020-08-21 15:33 | NUR ---
Patient in bed resting, eyes closed, respirations even and non labored. Pt's grandaughter at bedside. Iv infusing per provider order. No needs at this time. Call light within reach.
--- NOTE | 2020-08-21 15:43 | EKG ---
[facility] [address] [facility] [place] [address] Signed Sinus rhythm with premature supraventricular complexes Prolonged QT Abnormal ECG No previous ECGs available Confirmed by MICK ARNOLD DO ([id number]) on 08/21/2020 3:43:33 PM Electronically Signed By: MICK ARNOLD DO 08/21/20 1543 PATIENT NAME: MONROE MILELR Electrocardiogram DATE OF : 47 PHYSICIAN: MICK ARNOLD DO REPORT #: [id number] REPORT IS CONFIDENTIAL AND NOT TO BE RELEASED WITHOUT AUTHORIZATION
--- NOTE | 2020-08-21 15:58 | NUR ---
Pt awake visiting at this time, respirations even and non labored. Pt reports she has + flatus. Pt declined pain medication as she stated pain is a 2/10. No needs. Personal supplies and call light within reach.
--- NOTE | 2020-08-21 17:02 | NUR ---
PATIENT RESTING IN BED. VITAL SIGNS AND I&O DONE. PATIENT COMPLAIN ABOUT PAIN. RN NOTIFIED. CALL LIGHT WITHIN REACH. NO OTHER NEEDS AT THIS TIME
--- NOTE | 2020-08-21 17:45 | NUR ---
Zofran 4mg ivp admin for reports of nausea. Pt unable to eat her dinner at this time per her report. Encouraged patient to rest at this time.
--- NOTE | 2020-08-21 19:00 | NUR ---
REPORT RECEIVED FROM JAYDA BANKS. PT REPORTING INCREASING NAUSEA. TITRATED DOSE OF ANTI NAUSEA PRN ADMINISTERED. COOL RAG GIVEN FOR FOREHEAD. EMESIS BAG IN HAND. PT STATES INTERMITTENT ABD PAIN, DENIES PAIN MEDICATION AT THIS TIME. CALL LIGHT IN REACH. WILL RETURN FOR FOLLOW UP ASSESSMENT
--- NOTE | 2020-08-21 19:12 | NUR ---
Admin Zofran 4mg IVP for reports of nausea.
--- NOTE | 2020-08-21 19:51 | NUR ---
IN pt ROOM. pt CONTINUES TO COMPLAIN OF NAUSEA, CRAMPING PAIN "THEN IT GOES RIGHT AWAY". ABDOMEN DISTENDED, SOFT, BOWEL TONES ACTIVE X 4. VSS. PHONE CALL TO MD, UPDATED ON pt CONDITION. TELEPHONE ORDERS FOR DIET, PAIN, NAUSEA MEDICATIONS, IVF RATE REPEATED BACK TO VERIFY.
--- NOTE | 2020-08-21 21:08 | NUR ---
SCHEDULED IV MEDS GIVEN, HELD PO MEDS DUE TO NAUSEA. PRN ANTI NAUSEA AND PAIN MEDICATION GIVEN. ASSESSMENT COMPLETE. VS AND I/OS COMPLETE. PT AMBULATED TO BR WITH SBA. EMESIS BAG IN HAND. IVF INFUSING AT 100ML/HR PER NEW ORDER. PATIENT UP WALKING IN HALLWAY WITH JUSTIN MONTELONGO. NO OTHER NEEDS AT THIS TIME.
--- NOTE | 2020-08-21 21:30 | NUR ---
pt BACK IN BED AFTER AMBULATING 3 LAPS AROUND MEDICAL FLOOR. pt DENIES ANY PAIN AT THIS TIME. ABD DISTENDED. pt EDUCATION PROVIDED. RESTING IN BED, HOB ELEVATED. EMESIS BAG IN REACH, NO EMESIS AT THIS TIME, CONTINUES TO BURP. CALL LIGHT IN REACH. LIGHTS OFF IN ROOM.
--- NOTE | 2020-08-21 21:59 | PATH ---
[facility] [address] [place], [place] [address] Signed ORDERING PHYSICIAN: Reno Shannon MD PATIENT NAME: MONROE MILLER GENDER: F : 1945 Prior History: No cases found. SPECIMEN(S): No Source Given MOLECULAR PATHOLOGY RESULTS: SARS-CoV-2 Not Detected ADDITIONAL NOTES.: The [place] Fusion SARS-CoV-2 Assay is a multiplex real-time PCR (RT-PCR) in vitro diagnostic test intended for the qualitative detection of RNA from SARS-CoV-2 from individuals who meet COVID-19 clinical and/or epidemiological criteria. In general, SARS-CoV-2 RNA can be detected during the acute phase of infection. Positive results indicate the presence of SARS-CoV-2 RNA. Clinical correlation with patient history and other diagnostic information is necessary to determine patient infection status. Positive results do not rule out bacterial infection or co-infection with other viruses. Negative results do not preclude SARS-CoV-2 infection and should not be used as the sole basis for patient management decisions. Negative results must be combined with other clinical observations, patient history, and epidemiological information. The [place] Fusion SARS-CoV-2 Assay is not yet approved or cleared by the [place] FDA. When there are no FDA-approved or cleared tests available, and other criteria are met, FDA can make tests available under an emergency access mechanism called an Emergency Use Authorization (EUA). The EUA for this test is supported by the [place] of Health and Human Service's (HHS's) declaration that circumstances exist to justify the emergency use of in vitro diagnostics for the detection and/or diagnosis of the virus that causes COVID-19. This EUA will remain in effect for the duration of the COVID-19 declaration justifying emergency of IVDs, unless it is terminated or revoked by FDA, after which the test may no longer be used. The [place] Fusion SARS-CoV-2 Assay is for use only under EUA PATIENT NAME: MONROE MILLER MIGEL PATHOLOGY DATE OF : 47 REPORT #: [id number] PHYSICIAN: JERALD ESCALANTE PCP: JESSICA HUTCHINSON REPORT IS CONFIDENTIAL AND NOT TO BE RELEASED WITHOUT AUTHORIZATION [facility] [address] [place] [id number] Signed in laboratories certified under the Clinical Laboratory Improvement Amendments of 1988 (CLIA) to perform high complexity tests. [facility] is certified under CLIA to perform high complexity clinical laboratory testing. PERFORMING LABORATORY.: Molecular testing was performed by [facility] [place] [address] (Skilled Nursing Facility Counselor: Ron Smith D.O.; CLIA#: [id number]) Diagnostician: System Interface Pathologist Electronically Signed 08/21/2020 Copies: ~ PATIENT NAME: MONROE MILLER MIGEL PATHOLOGY DATE OF : 47 REPORT #: [id number] PHYSICIAN: JERALD ESCALANTE PCP: JESSICA HUTCHINSON REPORT IS CONFIDENTIAL AND NOT TO BE RELEASED WITHOUT AUTHORIZATION
--- NOTE | 2020-08-21 23:23 | NUR ---
ROUNDED ON PATIENT. PT IS IN BED WITH EYES CLOSED, BREATHING EVEN AND UNLABORED. NO APPARENT NEEDS AT THIS TIME.
--- NOTE | 2020-08-22 02:23 | NUR ---
ROUNDED ON PATIENT. PT IN BED WITH EYES CLOSED, LIGHTS OFF. IVF INFUSING WNL. CALL LIGHT WITHIN REACH. NO APPARENT NEEDS AT THIS TIME.
--- NOTE | 2020-08-22 04:14 | NUR ---
PT AMBULATED TO TO VOID. ASSESSMENT COMPLETE. IV NOTED TO HAVE INFILTRATED AT RIGHT SHOULDER SITE, REMOVED. NEW IV STARTED BY JAYDA ANDERSON IN R FA. PATIENT TOLERATED WELL. SLIGHT SWELLING NOTED AROUND FINGERS AND KNUCKLES OF BOTH HANDS. REMOVED ALL TAPE AND COBAN FROM PRIOR IV ATTEMPTS AND ELEVATED HANDS ON PILLOWS. PATIENT STATES PAIN AND NAUSEA ARE UNDER CONTROL. ABD IS SOFT AND TENDER ON PALPATION, DRESSING C/D/I. SCD'S IN PLACE. IVF INFUSING WNL. CALL LIGHT IN REACH AND NO FURTHER NEEDS AT THIS TIME.
--- NOTE | 2020-08-22 04:44 | NUR ---
PATIENT EXPERIENCED SEVERE PAIN AND NAUSEA AT BEGINNING OF SHIFT, NOW UNDER CONTROL WITH PRN PAIN AND ANTI NAUSEA MEDICATIONS. PATIENT WAS ABLE TO REST, AMBULATED TO BR WITH SBA. NEW IV STARTED IN R FA. IVF INFUSING WNL. ABD INCISION WNL, DRESSING C/D/I. ABD SOFT AND TENDER UPON PALPATION. PATIENT REPORTS PASSING GAS, NO PAIN OR NAUSEA. ON ROOM AIR. VSS. A+Ox4.
--- NOTE | 2020-08-22 06:45 | NUR ---
pt AWAKE, RESTING IN BED, RATES PAIN "MAYBE CLOSE TO A 1/10" IN UPPER ABDOMEN. ABD DISTENDED. "FEELS LIKE THERE IS FOOD SITTING RIGHT THERE". PRN TORADOL ADMINISTERED. NEW BAG IVF INFUSING WNL ORDERED. JAYDA HOLM IN ROOM AT THIS TIME ASSISTING pt WITH ORAL CARE REQUESTED.
--- NOTE | 2020-08-22 06:48 | NUR ---
ASSISTED PT WITH ORAL CARE AND PERSONAL HYGIENE. NO OTHER NEEDS AT THIS TIME
--- NOTE | 2020-08-22 07:50 | NUR ---
Pt awake in bed, alert and oriented x4. Pt reports she has improved nausea and abdminal pain. Abd midline incision CDI. Pt reports she is tender to abd touch. Pt denies needs at this time. Personal supplies and call light within reach. No needs at this time.
--- NOTE | 2020-08-22 09:00 | NUR ---
AMBLATING IN [place]US[place] WITH FAMILY. STILL PLANNING DISCHARGE HOME.
--- NOTE | 2020-08-22 10:14 | NUR ---
PATIENT AWAKE IN BED, FAMILY AT BEDSIDE. PATIENT STILL WORKING ON BREAKFAST. VITALS AND I&OS CHARTED. CALL LIGHT IN REACH
--- NOTE | 2020-08-22 10:35 | NUR ---
PT ALERT, ORIENTED AND SUPPORTED BY HER SON GENOVEVA. PT IS VERY TO THE POINT WITH HER ANSWERS POSED BY ME-BUT ALWAYS POLITE.PT ADMITTED SHE IS HAVING A DIFFICULT DAY, WORSE THAN TUES. PT REQUESTED PRAYER AND ACCEPTED A P.DAVID AND G.POST. PT THANKED ME FOR COMING IN. WILL FOLLOW
--- NOTE | 2020-08-22 10:59 | NUR ---
PATIENT AWAKE IN BED. LINEN CHANGED. VITALS AND I&OS CHARTED. CALL LIGHT IN REACH
--- NOTE | 2020-08-22 12:03 | NUR ---
Pt sitting up visiting with son at this time. Pt denies needs at this time. No needs at this time. Personal supplies and call light within reach.
--- NOTE | 2020-08-22 13:15 | HP ---
[facility] [address], [place] [address] Signed ADMISSION DATE: 08/20/2020 TIME: 9:50 p.m. PROBLEM: Possible ischemic bowel, possible internal hernia. HISTORY OF PRESENT ILLNESS: This 75-year-old white woman had the onset of sudden severe lower abdominal pain earlier in the day. She presented to the emergency room and was evaluated at 4:15 p.m. (currently nearly 10:00 p[address] by Dr. Shannon. The patient had nausea and vomiting and severe lower abdominal pain. Her symptoms started around noon 10 hours ago, feeling weak and having nausea, was transported by EMS services. Her pain was rather significant and considered diffusely tender. She was afebrile. Vital signs were reasonably normal, but she had lower abdominal tenderness diffusely. A transition to the care of Dr. Hanna from Dr. Shannon was undertaken. Difficult IV access was noted. A CT scan was performed. The patient was noted to be hypokalemic and she was given intravenous potassium with persistent nausea and vomiting. Ultimately, a CT scan was performed, which suggested possible internal hernia or volvulus with ischemia and possibly got infarction. My evaluation shows her to be calm and not tachycardic. A lactic acid level was elevated at 3.3. The patient's pain is much improved compared to her presentation earlier. She is not hypotensive. REVIEW OF SYSTEMS: She denies any shortness of breath or chest pain. She has improvement of her pain, though it remains significant in the lower abdomen. SOCIAL HISTORY: She lives alone. 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 She is accompanied by her granddaughter. PHYSICAL EXAMINATION: VITAL SIGNS: On presentation, vital signs are not available to me at this time. However, her current blood pressure is 132/78, pulse is 79, respirations 16, pulse oximetry 98%. HEENT: Mucous membranes are dry. Trachea is midline. CHEST: Shows normal respiratory excursion without tachypnea. HEART: Regular. Electronically Signed By: EMMY DUQUE MD 08/22/20 1315 PATIENT NAME: MONROE MILLER HISTORY AND PHYSICAL DATE OF : 47 REPORT #: [id number] PHYSICIAN: EMMY DUQUE MD PCP: JESSICA HUTCHINSON REPORT IS CONFIDENTIAL AND NOT TO BE RELEASED WITHOUT AUTHORIZATION [facility] [address] [place], [place] [address] Signed ABDOMEN: Scaphoid and nondistended. There is diffuse lower abdominal tenderness. EXTREMITIES: Show no clubbing, cyanosis, or edema. LABORATORY STUDIES: Show white count of 12.7, hematocrit 42.4, platelets 195,000. Chem profile shows a potassium of only 2.8, glucose is 203. Lactic acid 3.3. Liver enzymes normal. Lipase normal at 12. Urinalysis was essentially normal. COVID test was "canceled." The COVID test was obtained through a different method than our usual electronic record. CT scan was reviewed by me, which shows a fair amount of air and stool in the colon, diffuse edematous small bowel. Pelvis has obscured bowel, though some distended loops and definitely edema. Interpretation by radiologist, Dr. La describes abnormal collection of small bowel loops in the deep pelvis concerning for either internal hernia or volvulus with some degree of vascular compromise. There is early small degree of bowel obstruction. Chest x-ray was considered normal. ASSESSMENT: The patient does not have a running IV. She has been here since at least 4:00 p.m. and it is now 10:00 p.m. Concern is maintained for possible ischemic bowel. Her lactic acid level is elevated. She does have abdominal tenderness and had protracted vomiting previously. I have recommended immediate laparotomy to assess for ischemic bowel. The etiology may be internal hernia, a true vascular compromise versus some other origin or any number of other etiologies. I have ordered for meropenem 1 g IV be administered, Pepcid IV 20 mg, and consent for surgery has been outlined with her including the risks of operation including bleeding, infection, need for bowel resection, failure to cure the problem, and need for other unexpected procedures. She understands, as does her granddaughter, and they wish to proceed without delay. MD HIMA Taylor/JACKYL /[id number] Electronically Signed By: EMMY DUQUE MD 08/22/20 1315 PATIENT NAME: MONROE MILLER HISTORY AND PHYSICAL DATE OF : 47 REPORT #: [id number] PHYSICIAN: EMMY DUQUE MD PCP: JESSICA HUTCHINSON REPORT IS CONFIDENTIAL AND NOT TO BE RELEASED WITHOUT AUTHORIZATION [address] [address] Signed cc: MD Dr. Jacques Donnelly Copies: LUCAS SHANNON MD ~ Electronically Signed By: EMMY DUQUE MD 08/22/20 1315 PATIENT NAME: MONROE MILLER HISTORY AND PHYSICAL DATE OF : 47 REPORT #: [id number] PHYSICIAN: EMMY DUQUE MD PCP: JESSICA HUTCHINSON REPORT IS CONFIDENTIAL AND NOT TO BE RELEASED WITHOUT AUTHORIZATION
--- NOTE | 2020-08-22 14:13 | NUR ---
Toradol 15mg IVP admin for reports of 5/10 abd pain.
--- NOTE | 2020-08-22 14:37 | NUR ---
PATIENT RESTING IN BED, VITALS AND I&OS CHARTED. PATIENT STILL WORKING ON LUNCH, CALL LIGHT IN REACH. NO OTHER NEEDS AT THIS TIME
--- NOTE | 2020-08-22 18:04 | NUR ---
Patient walked in hallway several times today; tolerated well SBA.
--- NOTE | 2020-08-22 19:05 | NUR ---
REPORT RECEIVED FROM JAYDA BANKS. PT IN BED, LIGHTS OFF. IVF INFUSING WNL. MADE PLAN WITH PT TO WALK IN HALLWAY [facility]. PT REPORTS SLIGHT DISCOMFORT BUT DECLINES PRN MORPHINE, REQUESTING TO WAIT FOR PRN TORADOL. NO FURTHER NEEDS AT THIS TIME.
--- NOTE | 2020-08-22 20:13 | NUR ---
SCHEDULED MEDS ADMINISTERED, PT ABLE TO TAKE PO MEDS WITH LITTLE DIFFICULTY. ASSESSMENT COMPLETE. PT UP IN CHAIR. VS TAKEN. VSS.
--- NOTE | 2020-08-22 21:12 | NUR ---
PATIENT AMBULATED 3 LAPS AROUND THE [facility] HALLWAY ASSISTED BY THIS TRUCK MECHANIC APPRENTICE. PATIENT IS NOW IN BED READING NEWSPAPER. CUP OF WATER REFILLED. CALL LIGHT IN REACH.
--- NOTE | 2020-08-22 23:01 | NUR ---
CALL LIGHT ANSWERED. PT REQUESTS PRN PAIN MEDS FOR ABDOMINAL PAIN 05/02. PRN TORADOL ADMINISTERED. WARM BLANKET PROVIDED AND APPLIED TO ABDOMEN. NO FURTHER NEEDS AT THIS TIME. CALL LIGHT WITHIN REACH
--- NOTE | 2020-08-23 01:05 | NUR ---
ROUNDED ON PATIENT. AWAKE, RESTING IN BED WITH LIGHTS OFF. PT REPORTS FEELING "GASSY" IN HER STOMACH, ASSISTED HER TO LAY ON L SIDE, POSITIONED WITH PILLOWS. PT STATES NO PAIN OR NAUSEA, JUST PRESSURE IN ABD. DENIES ANY OTHER NEEDS AT THIS TIME. WILL CONTINUE TO MONITOR.
--- NOTE | 2020-08-23 02:46 | NUR ---
PATIENT CALLED TO USE THE BATHROOM. SBA.
--- NOTE | 2020-08-23 03:19 | NUR ---
ANSWERED CALL LIGHT, PT UP TO BR TO VOID. PT REQUESTED PRN ANTI NAUSEA MEDS, AND HAD 600 ML EMESIS OUTPUT. ZOFRAN ADMINISTERED. PATIENT BACK TO BED, ORAL CARE PERFORMED, WARM BLANKET PROVIDED AND WATER REFRESHED. EMESIS BAG IN HAND. ASSESSMENT COMPLETE. BOWEL TONES HYPOACTIVE, ABD SOFT AND TENDER UPON PALPATION. PT STATES PAIN AND PRESSURE RELIEVED AFTER EMESIS. NO OTHER NEEDS AT THIS TIME. WILL CONTINUE TO MONITOR.
--- NOTE | 2020-08-23 04:53 | NUR ---
PATIENT HAD 600ML EMESIS TONIGHT, STATES PAIN, PRESSURE RELIEVED. PRN PAIN MEDICATION AND ANTINAUSEA MEDS ADMINISTERED. PT UP TO BR TO VOID, UNABLE TO HAVE BM THIS SHIFT BUT VOIDING URINE WELL. BOWEL TONES HYPOACTIVE, ABD TENDER AND SOFT UPON PALPATION. MIDLINE INCISION COVERED, DRESSING C/D/I, NO REDNESS. IVF INFUSING WNL. PATIENT PASSING GAS. VSS. A+OX4. CALLS APPROPRIATELY, STATES GRATITUDE FOR STAFF.
--- NOTE | 2020-08-23 05:48 | NUR ---
CALL LIGHT ANSWERED. PT REQUESTS MORE ANTI-NAUSEA MEDICATIONS. PRN PHENERGAN ADMINISTERED. VITAL SIGNS COMPLETED AND STABLE. NO FURTHER NEEDS AT THIS TIME. CALL LIGHT WITHIN REACH.
--- NOTE | 2020-08-23 07:25 | NUR ---
Pt up to restroom with medical diagnostic radiographer, shift report received from primary,RN. Pt experiencing N/V noc shift RN to notify DR Samuel. Will CTM.
--- NOTE | 2020-08-23 07:30 | NUR ---
ANSWERED CALL LIGHT, PT ACTIVELY VOMITING WITH SEVERE DISTENTION AND NAUSEA. PT REPORTING PAIN AND INTOLERABLE NAUSEA. EMESIS APPROXIMATELY 300ML.
--- NOTE | 2020-08-23 07:40 | NUR ---
Attempted to speak with Lacy, she states she is not up for a visit today. She has just had an NG placed.
--- NOTE | 2020-08-23 07:41 | NUR ---
PHONE CALL TO MD, UPDATED ON PATIENT STATUS WITH ABDOMINAL DISTENTION AND REOCCURRING EMESIS, NEW ORDERS RECEIVED, REPEATED BACK TO VERIFY.
--- NOTE | 2020-08-23 08:23 | NUR ---
pt resting in semifowlers position pt gives verbal consent for NG tube placement after pt educated on procedure, indication and risks. Pt states "I know it's going to help with all this pressure in my belly so lets just get this over with". NG tube measured from tip of xiphoid process to ear and to nose and inserted to right nare to this measurement. Pt tolerated well and insertion went smoothly. Some clear brown fluid begins to drain from ng tube and hooked up to LIWS and approx 450mls of clear brown fluids was emptied. Pt states "oh that feels so much better in my belly, the pressure is gone". Tube secured to nose with tape. Imaging notified of need for xray. Pt denies furhte rneeds or concerns.
--- NOTE | 2020-08-23 10:45 | NUR ---
PT ASSISTED UP TO RESTROOM AND THEN BACK TO BED NG CONTINUES ON LIWS AND IV FLUIDS INFUSING ORDERED. CALL LIGHT AND H2O IN REACH. NO NEEDS OR CONCERNS VOICED.
--- NOTE | 2020-08-23 12:47 | NUR ---
BEGAN TO ENTER PT'S RM-SON GENOVEVA WAS SITTING IN CHAIR AND MOTIONED AND WHISPERED THAT I COME BACK LATER. WILL CHECK BACK
--- NOTE | 2020-08-23 13:52 | NUR ---
PT RESTING SEMIFOWLERS POSTIION IN BED ALERT AND ORIENTED. PT REPORTS SORE THROAT RT NG TUBE, PRN ADMINISTERED PER PT REQEUST. PT ASSESSMENT COMPLETED. WALL SUCTION CANNISTER FULL SO WAS REPLACED. CALL LIGHT IN REACH. PT DENIES FURTHER NEEDS OR CONCERNS.
--- NOTE | 2020-08-23 16:00 | NUR ---
PT ALERT AND ORIENTED REQEUSTED AND RECEIVED CEPICOL LOZENGE FOR SORE THROAT. CALL LGIHT AND H2O IN REACH. NO FURTHER NEEDS OR CONCERNS VOICED.
--- NOTE | 2020-08-23 19:15 | NUR ---
PT UP WALKING WITH RICH RUSHING. SHIFT REPORT RECEIVED FROM ARIELLE MONTELONGO.
--- NOTE | 2020-08-23 19:42 | NUR ---
PT STATES SHE HAS 5/10 ABD PAIN AND THROAT PAIN. LOZENGE AND PRN PAIN MED PROVIDED. IV WNL, CDI, FLUSHED WELL. NO OTHER NEEDS AT THIS TIME. CALL LIGHT IN REACH.
--- NOTE | 2020-08-23 20:50 | NUR ---
took pt vitals, came bk to get pt up to the toilet, recorded i&os, took teabag out of cup per pt request, provide pt fresh ice chips for water, reconnected ng tube, reconnected scds, no further request at this time, call light in reach,
--- NOTE | 2020-08-23 21:24 | NUR ---
ASSESSMENT COMPLETED. GCS 15, A&O X4. CMS INTACT X 4 EXTREMITIES. PT DENIES PAIN BUT STATES SHE IS "UNCOMFORTABLE", MOSTLY IN THROAT AND "CAN FEEL THE TUBE." NG TUBE AT LOW INTERMITTENT, DARK GREEN DISCHARCHE, SMALL. LUNGS CLEAR. ABD FIRM, NONTENDER, INCISION COVERED, WNL, DRIED RED BLOOD AT BOTTOM OF DRESSING. PT STATES SHE IS PASSING GAS, HAS NAUSEA. PRN NAUSEA MED PROVIDED. LOZENGE PROVIDED FOR THROAT IRRITATION. NO EDEMA NOTED. IV WNL, CDI, FLUSHED WELL. IV FLUIDS INFUSING PER ORDER. NO OTHER NEEDS AT THIS TIME. CALL LIGHT IN REACH.
--- NOTE | 2020-08-24 | NUR ---
PT RESTING IN BED, EYES CLOSED. WAKES WHEN DOOR OPENS. PT DENIES PAIN. IV FLUIDS INFUSING PER ORDER. NO OTHER NEEDS AT THIS TIME. CALL LIGHT IN REACH.
--- NOTE | 2020-08-24 02:35 | NUR ---
PT COMPLAINS OF NAUSEA, PRN NAUSEA MED PROVIDED. PT STATES SHE FEELS LIKE SHE HAS A LUMP IN HER UPPER MID EPIGASTRIC REGION. NG TUBE FLUSHED WITH GOOD RESULTS OF 800ML OF DARK GREEN/BROWN DISCHARGE. PT STATES SHE HAS SOME RELIEF OF LUMP, SUCTION SET AT LOW INTERMITENT. ASSESSMENT COMPLETED. IV WNL, IV FLUIDS INFUSING PER ORDER. BOWEL TONES ACTIVE, ABD FIRM, NONTENDER. LOZENGE PROVIDED. NO OTHER NEEDS AT THIS TIME. CALL LIGHT IN REACH, PT UP IN CHAIR.
--- NOTE | 2020-08-24 03:18 | NUR ---
PT BACK TO BED. NG AT LOW INTERMITTENT. IV WNL, IV FLUIDS INFUSING PER ORDER. SCDs ON. ICE CHIPS PROVIDED. NO OTHER NEEDS AT THIS TIME. CALL LIGHT IN REACH.
--- NOTE | 2020-08-24 07:26 | NUR ---
PT ALERT AND ORIENTED RESTING IN SEMIFOWLERS POSITION IN BED. PT REPORTS SORE THROAT PRN LOZENGE ADMINISTERED. CALL LIGHT AND H2O IN REACH. NO FURTHER NEEDS OR CONCERNS VOICED. REPORT WAS RECEIVED FROM ANAYA SMITH RN.
--- NOTE | 2020-08-24 09:04 | NUR ---
PT ALERT AND ORIENTED RESTING IN SEMIFOWLERS POSITION IN BED. CALL LIGHT AND H2O IN REACH. NO NEEDS OR CONCERNS VOICED. ASSESSMENT COMPLETED AND AM MEDS ADMINISTERED.
--- NOTE | 2020-08-24 09:15 | NUR ---
Pt. sleeping not awakened.
--- NOTE | 2020-08-24 12:05 | NUR ---
PT RESTING IN BED, NG TUBE IN BUT CLOSED FOR THE MOMENT. PT REQUESTED PRAYER WILL FOLLOW
--- NOTE | 2020-08-24 14:00 | NUR ---
PT ALERT AND ORIENTED CALL LIGHT AND H20 IN REACH. NG TUBE FLUSHED FOR PT COMFORT PER HER REQUEST WITH 60MLS OF H2O PT TOLERATED WELL AND NG BACK TO LOW INTERMITTANT SUCTION. ASSESSMENT COMPLETED.
--- NOTE | 2020-08-24 15:09 | NUR ---
PATIENT AND I WALKED 3 LAPS AROUND MED SURG.
--- NOTE | 2020-08-24 17:14 | NUR ---
PATIENT CALLED FOR ASSISTANCE TO CHAIR, IN ROOM, WAS ATTEMPTING TO HELP PATIENT OUT OF BED, THIS PILOT CAPTAIN STRESS THE IMPRTANCE OF CALLING STAFF FOR ASSISTANCE WITH AMBULATING PATIENT. 1PA TO BR WITH FWW, MED BM, CHANGED GOWN AND BRIEF. PATINET TO CHAIR FOR DINNER, EATING DINNER ON COUCH, CHAIR ALARM ON, CALL LIGHT WITHIN REACH
--- NOTE | 2020-08-24 17:30 | NUR ---
ASSUMED CARE OF PT AT THIS TIME, RESTING COMFORTABLY ON BED, GRANDAUGHTER IN ROOM VISITING. DENIES ANY NEEDS AT THIS TIME. NG PATENT TO LIS, IVF INFUSING, CALL LIGHT IN EASYR EACH.
--- NOTE | 2020-08-24 19:30 | NUR ---
GOT PT UP TO THE TOILET, PT WOULD LIKE TO AMBU IN HALLS, TOOK PT OUT, BK BK IN BED AT THIS TIME,
--- NOTE | 2020-08-24 20:00 | NUR ---
GOT PT VITALS, I&Os IN, FRESH ICE PROVIDED FOR PT WATER, ICE CHIPS ARE PROVIDED, RN IN FOR ASSESMENT, NO FURTHER REQUEST AT THIS TIME
--- NOTE | 2020-08-24 20:58 | NUR ---
ASSESSMENT COMPLETED. VS AND I&O COMPLETED BY URBAN RUSHING. GCS 15, A&O X4. LUNGS CLEAR. HEART TONES REGULAR. ABD FIRM, NONTENDER, BOWEL TONES ACTIVE. IV WNL, CDI, FLUSHED WELL, REINFORCED WITH COBAN. IV FLUIDS INFUSING PER ORDER. PT DENIES PAIN, HAS THROAT IRRITATION FROM NG TUBE, LOZENGE PROVIDED. SCHEDULED MEDS PROVIDED. NG FLUSHED, LIGHT GREEN DRAINAGE, LOW INTERMITTENT SUCTION. NO EDEMA NOTED IN EXTREMITIES, CMS INTACT. INCISION COVERED. SMALL AMOUNT OF DRIED BLOOD AT BASE OF DRESSING. PT UP TO BR AND BACK TO BED. WARM TEA AND ICE CHIPS PROVIDED. NO OTHER NEEDS AT THIS TIME. CALL LIGHT IN REACH.
--- NOTE | 2020-08-24 22:30 | NUR ---
PT RESTING IN BED, WATCHING TV. NG ON LOW INTERMITTENT. IV FLUIDS INFUSING PER ORDER. NO NEEDS AT THIS TIME. CALL LIGHT IN REACH.
--- NOTE | 2020-08-25 00:30 | NUR ---
GOT PT UP TO THE TOILET, TIDY BED LINENS, BK TO BED AT THIS TIME, TOOK BP AT PT REQUEST, NO FURTHER REQUEST AT THIS TIME
--- NOTE | 2020-08-25 01:36 | NUR ---
PT RESTING IN BED, EYES CLOSED. RR EVEN, UNLABORED. NG ON LOW INTERMITTENT. IV FLUIDS INFUSING PER ORDER. CALL LIGHT IN REACH.
--- NOTE | 2020-08-25 03:10 | NUR ---
PT RESTING IN BED, EYES CLOSED. RR EVEN, UNLABORED. IV FLUIDS INFUSING PER ORDER.NG TUBE ON LOW INTERMITTENT. CALL LIGHT IN REACH.
--- NOTE | 2020-08-25 04:30 | NUR ---
PT COMPLAINS OF THROAT IRRITATION, PRN LOZENGE PROVIDED. ASSESSMENT COMPLETED. GCS 15, A&O X4. LUNGS CLEAR. NG LOW INTERMITTENT, CLEAR, LIGHT GREEN DISCHARGE. IV WNL, IV FLUIDS INFUSING PER ORDER. ABD SOFT, NONTENDER, MILDLY DISTENDED. PT DENIES PAIN. CMS INTACT X4 EXTREMITIES, NO EDEMA NOTED. ICE CHIPS PROVIDED. NO OTHER NEEDS AT THIS TIME. CALL LIGHT IN REACH.
--- NOTE | 2020-08-25 05:11 | NUR ---
PT SLEPT WELL LAST NIGHT. SHE HAD A LARGE, FIRM BOWEL MOVEMENT THAT RELIEVED MUCH ABD PAIN AND ANXIETY. IV WNL. GCS 15, A&O X4. LUNGS CLEAR. NG TUBE HAD DECREASED DISCHARGE TONIGHT OF 300ML OF LIGHT GREEN, CLEAR. PT AMBULATES WELL, SBA. UOS. VSS. TOLERATED ICE CHIPS AND ORAL FLUIDS WELL. ABD SOFT, MILDLY DISTENDED, NON TENDER. BOWEL TONES ACTIVE.
--- NOTE | 2020-08-25 07:05 | NUR ---
PT RESTING IN SEMIFOWLERS POSITION IN BED ALERT AND ORIENTED, NG TO LIWS WITH CLEAR [place] COLORED DRAINAGE. NOC SHIFT RN GAVE BEDSIDE REPORT, STATES PT HAD LARGE FIRM BOWEL MOVEMENT LAST NIGHT AND WALKED 6 LAPS. CALL LIGHT IN REACH.
--- NOTE | 2020-08-25 07:26 | NUR ---
PT RESTING IN BED, WATCHING TV. NEW BAG IV FLUIDS PROVIDED. PT COMPLAINS OF THROAT PAIN. ICE CHIPS PROVIDED. NO OTHER NEEDS AT THIS TIME. CALL LIGHT IN REACH.
--- NOTE | 2020-08-25 07:30 | NUR ---
PATIENT RESTING IN BED. RN IN ROOM. WHITE BOARD UPDATED. CALL LIGHT WITHIN REACH. NO OTHER NEEDS AT THIS TIME
--- NOTE | 2020-08-25 08:55 | NUR ---
PATIENT AMBULATING IN THE HALLWAY WITH HER SON.
--- NOTE | 2020-08-25 09:46 | NUR ---
PATIENT RESTING IN BED. SON IN ROOM. VITAL SIGNS AND I&O DONE. CALL LIGHT WITHIN REACH. NO OTHER NEEDS AT THIS TIME
--- NOTE | 2020-08-25 11:49 | NUR ---
Pt resting in semifowlers postion in bed alert and oriented. NG tube removed by DR Samuel. Pt states she feels much better now and is happy she is healing. Pt educated to take it slow on clear liquid diet for now.
--- NOTE | 2020-08-25 13:54 | NUR ---
PATIENT RESTING IN BED. VITAL SIGNS AND I&O DONE. CALL LIGHT WITHIN REACH. NO OTHER NEEDS AT THIS TIME
--- NOTE | 2020-08-25 13:55 | NUR ---
PT RESTING IN SEMIFOWLERS POSITION IN BED ALERT AND ORIENTED, DENIES PAIN, NAUSEA OR SOB STATES SHE IS FEELING MUCH BETTER. PT DECLINES WALK AT THIS TIME. ASSESSMENT COMPLETED. CALL LIGHT AND H2O IN REACH.
--- NOTE | 2020-08-25 17:05 | NUR ---
PATIENT RESTING IN BED. VITAL SIGNS AND I&O DONE. ICE WATER GIVEN. CALL LIGHT WITHIN REACH. NO OTHER NEEDS AT THIS TIME
--- NOTE | 2020-08-25 18:09 | NUR ---
Pt tolerated 3 laps in the halls states "I just had another good sized bowel movement" pt had medium firm brown bm. Pt back to bed. New bag of LR hung and pt deneies further needs or concerns.
--- NOTE | 2020-08-25 19:00 | NUR ---
SHIFT REPORT RECEIVED FROM ARIELLE MONTELONGO. PT RESTING IN BED.DENIES PAIN. NO NEEDS AT THIS TIME. CALL LIGHT IN REACH.
--- NOTE | 2020-08-25 19:26 | NUR ---
PT CALLS TO USE BR AND BACK TO BED. PT GAIT NORMAL. IV INFUSING PER ORDER. NO OTHER NEEDS. CALL LIGHT IN REACH.
--- NOTE | 2020-08-25 20:50 | NUR ---
TOOK PT VITALS, I&Os DONE, FRESH ICE WATER GIVEN, NO FURTHER REQUEST AT THIS TIME,
--- NOTE | 2020-08-25 21:25 | NUR ---
ASSESSMENT COMPLETED. GCS 15, A&O X4. LUNGS CLEAR. HEART TONES REGULAR. ABD SOFT, TENDER AND MILDLY DISTENDED, BOWEL TONES ACTIVE. INCISION WNL, COVERED. IV WNL, CDI, FLUSHED WELL. CMS INTACT X4 EXTREMITIES. NO EDEMA NOTED. BROTH AND TEA PROVIDED. SCHEDULED MEDS PROVIDED. PT DENIES PAIN. NO OTHER NEEDS ATT HIS TIME. CALL LIGHT IN REACH.
--- NOTE | 2020-08-25 23:05 | NUR ---
PT RESTING IN BED, EYES CLOSED. RR EVEN, UNLABORED. IV FLUIDS INFUSING PER ORDER. CALL LIGHT IN REACH.
--- NOTE | 2020-08-26 01:05 | NUR ---
PT RESTING IN BED, EYES CLOSED. RR EVEN, UNLABORED. IV FLUIDS INFUSING PER ORDER. CALL LIGHT IN REACH.
--- NOTE | 2020-08-26 03:00 | NUR ---
PT RESTING IN BED, EYES CLOSED. RR EVEN, UNLABORED. IV FLUIDS INFUSING PER ORDER. CALL LIGHT IN REACH.
--- NOTE | 2020-08-26 03:40 | NUR ---
PT IV PUMP ALARMING, NEW BAG IV FLUIDS PROVIDED. ASSESSMENT COMPLETED. GCS 15, A&O X4. LUNGS CLEAR. IV SITE WNL. ABD SOFT, TENDER, BOWEL TONES ACTIVE. INCISION COVERED, WNL. ABD MILDLY DISTENDED. CMS INTACT X4 EXTREMITIES. PT DENIES PAIN. NO OTHER NEEDS AT THIS TIME. CALL LIGHT IN REACH.
--- NOTE | 2020-08-26 05:55 | NUR ---
PT SLEPT OFF AND ON LAST NIGHT. NO PAIN REPORTED. INCISION COVERED, WNL. IV WNL. ABD SOFT, NONTENDER, MILDLY DISTENDED. BOWEL TONES ACTIVE. PT AMBULATING HALLS AND IN ROOM. UOS. VSS. PT TOLERATED DINNER AND SNACKS WELL.
--- NOTE | 2020-08-26 06:10 | NUR ---
PT CALLED, SHE USED THE RESTROOM AND WANTED HELP ADJUSTING HER BEDDING. VS AND I&O'S ENTERED. FRESH ICEWATER AT BEDSIDE. PT DENIES FURTHER NEEDS AT THIS TIME. CALL LIGHT IS CLOSE.
--- NOTE | 2020-08-26 07:10 | NUR ---
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 SHIFT REPORT RECEIVED FROM JAYDA SMITH STATES PT TOLERATED CLEAR ENSURES AND BROTHS AND HAD 2 BMS'S LAST NIGHT WITH NO PAIN OR NAUSEA.
--- NOTE | 2020-08-26 07:50 | NUR ---
PATIENT RESTING IN BED. WHITE BOARD UPDATED. IV WRAPPED. SETS UP BATHROOM FOR SHOWER. LINENS CHANGED. CALL LIGHT WITHIN REACH. NO OTHER NEEDS AT THIS TIME
--- NOTE | 2020-08-26 09:44 | NUR ---
PATIENT RESTING IN BED. VITAL SIGNS AND I&O DONE. CALL LIGHT WITHIN REACH. NO OTHER NEEDS AT THIS TIME
--- NOTE | 2020-08-26 13:40 | NUR ---
PT UP AMBULATING MULTIPLE LAPS IN HALLS WITH STEADY GAIT, PT TOOK SHOWER AND BACK TO BED. PT ASSESSMENT COMPLETED. CALL LIGHT AND H2O IN REACH. FRESH ICE WATER AND CLEAR ENSURE PROVIDED.
--- NOTE | 2020-08-26 13:54 | NUR ---
PATIENT SITTIN UP IN BED. VITAL SIGNS AND I&O DONE. CALL LIGHT WITHIN REACH. NO OTHER NEEDS AT THIS TIME
--- NOTE | 2020-08-26 16:15 | NUR ---
PT ALERT AND ORIENTED RESTING IN BED WATCHING TV. PTS DINNER WAS ORDERED. PT DENIES NEEDS OR CONCERNS, FRESH ICE WATER AND CALL LIGHT IN REACH.
--- NOTE | 2020-08-26 17:50 | NUR ---
PATIENT SITTING UP IN BED. VITAL SIGNS AND I&O DONE. CALL LIGHT WITHIN REACH. NO OTHER NEEDS AT THIS TIME
--- NOTE | 2020-08-26 19:00 | NUR ---
SHIFT REPORT RECEIVED FROM SMILEY GUZMÁN AT BEDSIDE. PT AWAKE AND RESTING IN BED, RECENTLY DISCUSSED HOW AFTER HAVING DIARRHEA SHE HAD SOME EMESIS. EXPLAINED IT WAS R/T SMELL OF BM. ISSUE RESOLVED. NO ADDITIONAL NEEDS, CALL LIGHT IN REACH. MIDLINE DRESSING INTACT, SOME OLD SHADOWING NOTED TO DISTAL PORTION OF DRESSING.
--- NOTE | 2020-08-26 20:38 | NUR ---
VS and I&Os complete. Nothing further needed at this time. pt asked to keep the door completely closed. ([facility] door very loud).
--- NOTE | 2020-08-26 21:56 | NUR ---
ASSESSMENT COMPLETE, SCHEDULED MEDS GIVEN (SEE EMAR). PT DENIES PAIN, INTERMITTENT BURPING NOTED WITH MED. NO EMESIS. PT COMPLIANT WITH CARE, NO CHANGES TO DRESING. IV SITE WNL, FLUSHES EASILY. PT DECLINES SCD'S AT THIS TIME D/T FEAR OF NOT BEING ABLE TO GET OOB QUICKLY FOR POSSIBLE BM. WHITE NOISE PROVIDED VIA COMPUTER TO PROMOTE REST, NO FURTHER NEEDS. CALL LIGHT IN REACH.
--- NOTE | 2020-08-27 00:05 | NUR ---
PT HAS CALLED, PT WAS HAVING EMEIS AND DIHARREA, GOT PT UP TO HE TOILET QUICKLY, PT STARTED DRAKE CARE AND WASHING LEGS IN THE SHOWER, PT SAT ON THE TOILET MORE, RN IN TO PROVIDE NAUSEA MED, GAVE PT SOME PRIVACY, CALLED WHEN READY, PT HAS FRESH BRIEFS AND NEW SOCKS ON, PT IS BK TO BED, HAS NEW EMISIS BAG AND WIPES AT BEDSIDE, LEFT PT TO REST, PT SEEMAS MORE COMFORTABLE AT THIS TIME, NO FURTHER REQUESTS
--- NOTE | 2020-08-27 00:15 | NUR ---
INFORMED BY DYE LINE OPERATOR PT HAVING EMESIS AND DIARRHEA, THIS RN IN ROOM TO ASSESS. PT ON THE TOILET, THERAPEUTIC COMMUNICATION PROVIDED ALSONG WITH KRISTINE MELARA. СЕРГЕЙ DUGGAN IN ROOM ASSISTING PT WITH DRAKE CARE.
--- NOTE | 2020-08-27 00:35 | NUR ---
ROUNDED ON PT. PT RESTING QUIETLY IN BED, REPORTS NAUSEA RESOLVED. BT ACTIVE IN ALL QUADRANTS, NO CHANGES TO ABD NOTED. PT DENIES ABD TENDERNESS, NO INCREASE IN DISTENTION NOTED. PT STATES, "I FEEL EMBARRASSED BECAUSE I KNOW I DID THIS TO MYSELF. I HAD TURKEY AND MASHED POTATOES AND YOU BETTER BELIEVE I ATE ALL OF IT". EDUCATION PROVIDED, NO FURTHER NEEDS. CONSTRUCTION COST ESTIMATOR UPDATED, WILL MONITOR. CALL LIGHT IN REACH. PT APPEARS MORE RELAXED, NO DISTRESS NOTED.
--- NOTE | 2020-08-27 01:56 | NUR ---
ASSESSMENT COMPLETE, PRN REGLAN GIVEN (SEE EMAR) PER MD ORDERS. PT DENIES NAUSEA AT THIS TIME. BT ACTIVE, NO TENDERNESS NOTED. NO CHANGES TO DRESSING. IV SITE WNL, FLUSHES EASILY. CALL LIGHT IN REACH.
--- NOTE | 2020-08-27 06:01 | NUR ---
IN ROOM TO ROUND ON PT. PT RESTING QUIETLY IN BED, VSS AND I&O'S COMPLETE. PT UP SBA TO VOID X1. DIARRHEA X1 ALSO NOTED. PT CONTINUES TO DENY NAUSEA. WILL USE CALL LIGHT WHEN READY TO RETURN TO BED FROM BATHROOM.
--- NOTE | 2020-08-27 06:56 | NUR ---
DR DUQUE UPDATED ON PT'S EVENING INCLUDING NAUSEA, EMESIS, AND DIARRHEA. TELEPHONE ORDER READ BACK TO CHANGE DIET TO A SOFT DIET. ORDER UPDATED BY THIS RN.
--- NOTE | 2020-08-27 07:10 | NUR ---
BEDSIDE HANDOFF REPORT RECEIVED FROM STRUCTURAL STEEL FITTER RN. PT RESTING IN BED. PT DENIES NEEDS AT THIS TIME.
--- NOTE | 2020-08-27 07:57 | NUR ---
PATIENT RESTING IN BED. WHITE BOARD UPDATED. PATIENT'S BREAKFAST ORDERED. CALL LIGHT WITHIN REACH. NO OTHER NEEDS AT THIS TIME
--- NOTE | 2020-08-27 08:10 | NUR ---
PT RESTING IN BED. PT ON ROOM AIR, LUNG SOUNDS CLEAR. PT DENIES PAIN. PT DENIES NAUSEA, GIVEN REGLAN PER ORDER, BOWEL TONES ACTIVE. MIDLINE INCISION INTACT, SMALL AMOUNT OF OLD DRAINAGE TO DISTAL DRESSING. CMS INTACT, WITHOUT EDEMA. DISCUSSED PLAN OF CARE FOR THE DAY.
--- NOTE | 2020-08-27 09:00 | NUR ---
Spoke Lacy. States she is not feeling well and has had diarreah throughout the night. Is nauseated now. Discussed best to not go home until she is feeling well. Concern of how she will cope with diarrhea at home. Suggested pull ups until she has better control. Asked Rn if they can send pt with pull ups on dc and they will. Pt's granddaughter has agreed to stay with pt until she is able to care for self. Pt does not plan on dc today.
--- NOTE | 2020-08-27 09:02 | NUR ---
PATIENT RESTING IN BED. VITAL SIGNS AND I&O DONE. CALL LIGHT WITHIN REACH. NO OTHER NEEDS AT THIS TIME
--- OUTSIDE RECORDS SUMMARY | 2020-08-27 12:07 | XMS | Clinical Summary ---
Demographics + + + | Address | [address] | | | [place] [address] | + + + | Home Phone | | + + + | Preferred Language | Unknown | + + + | Marital Status | | + + + | [employer]ar[employer] Affiliation | 1069 | + + + | Race | White | + + + | Ethnic Group | Not or | + + + Author + + + | Author | [facility] | | | and [place] | + + + | Organization | [facility] | | | and [place] | + + + | Address | Unknown | + + + | Phone | Unavailable | + + + Support + + + + + | Name | Relationship | Address | Phone | + + + + + | Per Pt None To List | ECON | [id number] | | | | | NA, | | + + + + + | Carmine Bergman | ECON | [address] | | | | | [place] | | | | | [phone] | | + + + + + Care Team Providers + +------+ + | Care Technical Intern Name | Role | Phone | + +------+ + | Tomas Simental MD | PCP | | + +------+ + Allergies No Known Allergies Medications + + + +---------+------+------+-------+ | Medication | Sig | Dispensed | Refills | Star | End | Statu | | | | | | t | Date | s | | | | | | Date | | | + + + +---------+------+------+-------+ | ibuprofen (ADVIL, | Take 400 mg by mouth | | 0 | | | Activ | | MOTRIN) 200 mg | every 6 hours as | | | | | e | | tablet | needed. | | | | | | + + + +---------+------+------+-------+ | Multiple Vitamin | Take by mouth | | 0 | | | Activ | | (MULTI-VITAMIN DAILY | Daily. | | | | | e | | PO) | | | | | | | + + + +---------+------+------+-------+ Active Problems No known active problems Family History + + +------+ + | Medical History | Relation | Name | Comments | + + +------+ + | Breast cancer | | | Great grandmother | + + +------+ + + +------+--------+ + | Relation | Name | Status | Comments | + +------+--------+ + Social History + +-------+ +--------+------+ | Tobacco Use | Types | Packs/Day | Years | Date | | | | | Used | | + +-------+ +--------+------+ | Never Smoker | | | | | + +-------+ +--------+------+ + +---+---+---+ | Smokeless Tobacco: | | | | | Never Used | | | | + +---+---+---+ + + +---------+ + | Alcohol Use | Drinks/Week | oz/Week | Comments | + + +---------+ + | Not Asked | | | | + + +---------+ + + + + | Sex Assigned at | Date Recorded | | | | + + + | Not on file | | + + + Last Filed Vital Signs + + + + + | Vital Sign | Reading | Time Taken | Comments | + + + + + | Blood Pressure | - | - | | + + + + + | Pulse | - | - | | + + + + + | Temperature | 37 C (98.6 F) | 07/07/2014 12:53 PM | | | | | PDT | | + + + + + | Respiratory Rate | - | - | | + + + + + | Oxygen Saturation | - | - | | + + + + + | Inhaled Oxygen | - | - | | | Concentration | | | | + + + + + | Weight | 69.4 kg (153 lb) | 07/07/2014 12:53 PM | | | | | PDT | | + + + + + | Height | 170.2 cm (5' 7") | 07/07/2014 12:53 PM | | | | | PDT | | + + + + + | Body Mass Index | 23.96 | 07/07/2014 12:53 PM | | | | | PDT | | + + + + + Plan of Treatment + + +-------+ + | Health Maintenance | Due Date | Last | Comments | | | | Done | | + + +-------+ + | Vaccine: | | | | | Dtap/Tdap/Td (1 - | 5 | | | | Tdap) | | | | + + +-------+ + | Vaccine: Zoster (1 | | | | | of 2) | 6 | | | + + +-------+ + | Breast Cancer | | | | | Screening | 1 | | | + + +-------+ + | Vaccine: | | | | | Pneumococcal 65+ (1 | 1 | | | | of 1 - PPSV23) | | | | + + +-------+ + | Vaccine: Influenza | | | | | (#1) | 0 | | | + + +-------+ + Results Not on filefrom Last 3 Months Insurance + +--------+ +--------+ +---------+--------+ | Payer | Benefi | Subscriber | Effect | Phone | Address | Type | | | t Plan | ID | saloni | | | | | | / | | Dates | | | | | | Group | | | | | | + +--------+ +--------+ +---------+--------+ | MEDICARE | MEDICA | [id number] | 03/23/20 | [phone] | | Medica | | | RE | | 11-Pre | 5 | | re | | | PART A | | sent | | | | | | AND B | | | | | | + +--------+ +--------+ +---------+--------+ | [employer] | TRANSA | [id number] | | | | Indemn | | INSURANCE | MERICA | | [phone] | | | ity | | | LIFE | | esent | | | | | | [place] | | | | | | + +--------+ +--------+ +---------+--------+ + +--------+ +--------+ + + | Guarantor Name | Accoun | Relation to | Date | Phone | Billing Address | | | t Type | Patient | of | | | | | | | | | | + +--------+ +--------+ + + | Lacy Gibson | Person | Self | [birth year] | [address] | | | al/Fam | | 1945 | [phone] | [address] [place], [place] | | | kayla | | | [address] (Home) | [address] | + +--------+ +--------+ + + | Lacy Gibson | Third | Self | [birth year] | [address] | | | [employer] | | 1945 | [phone] | [address] [place], [place] | | | [place] | | | [address] (Home) | [address] | | | ity | | | | | + +--------+ +--------+ + + Advance Directives + + + + + | Type | Date Recorded | Patient | Explanation | | | | Separator Inserter | | + + + + + | Power of | | | | | Mail Reader | | | | + + + + + | Advance | 07/07/2014 12:38 | | | | Directive | PM | | | + + + + +
--- OUTSIDE RECORDS SUMMARY | 2020-08-27 12:08 | XMS | Encounter Summary ---
Demographics + + + | Address | [address] | | | [place] [address] | + + + | Home Phone | | + + + | Preferred Language | Unknown | + + + | Marital Status | | + + + | Sikh Affiliation | [id number] | + + + | Race | White | + + + | Ethnic Group | Not or | + + + Author + + + | Author | [facility] | | | and [place] | + + + | Organization | [facility] | | | and [place] | + + + | Address | Unknown | + + + | Phone | Unavailable | + + + Support + + + + + | Name | Relationship | Address | Phone | + + + + + | Per Pt None To List | ECON | [id number] | | | | | NA, | | + + + + + | Carmine Bergman | ECON | [address] | | | | | [place] | | | | | [address] | | + + + + + Care Team Providers + +------+ + | Care Audio Video Technician Name | Role | Phone | + +------+ + | Tomas Simental MD | PCP | | + +------+ + Encounter Details +--------+ + + + + | Date | Type | Department | Care Team | Description | +--------+ + + + + | 07/07/ | Hospital | [facility] | Wilfrido Ferro, | Other complications | | 2013 | Encounter | [facility] | [address] | due to internal | | | | [address] [place] | [place], [place]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 | | | | | + + + +---------+--------+ + | Multiple Vitamin | Take by mouth | | 0 | | | | (MULTI-VITAMIN DAILY | Daily. | | | | | | PO) | | | | | | + + + +---------+--------+ + documented as of this encounter Plan of Treatment Not on filedocumented as of this encounter Procedures + +--------+ + + + | Procedure Name | Priori | Date/Time | Associated Diagnosis | Comments | | | ty | | | | + +--------+ + + + | XR HIP RIGHT 2 + VW | Routin | 07/07/2014 | Other | Results for this | | | e | 12:50 PM | complications due to | procedure are in the | | | | PDT | internal joint | results section. | | | | | prosthesis (HCC) | | + +--------+ + + + documented in this encounter Results XR Hip Right 2 + Vw (07/07/2014 12:50 PM PDT) + + | Specimen | + + | | + + + + + | Narrative | Performed At | + + + | EXAM: XR HIP RIGHT 2 + VW dated 07/07/2014 12:39 PM HISTORY:Right | [facility] | | Hip Pain COMPARISON: December 05, 2013. FINDINGS: Frontal view | LAB | | the pelvis and dedicated views of the right hip. Total hip | | | arthroplasty changes are present in the right hip. There is no | | | evidence for interval component related complication. There are | | | moderate degenerative changes seen in the left hip. Degenerative | | | changes are partially seen in the lower lumbar spine. Soft tissues | | | are unremarkable. IMPRESSION - Right total hip arthroplasty | | | without evidence for interval complication. Degenerative changes | | | in the left hip. Dictated and Signed by: Berlin Carmona MD | | | Electronically signed: 07/07/2014 1:44 PM | | + + + + + | Procedure Note | + + | Walker Nuñez Results In - 07/07/2014 1:47 PM PDT EXAM: XR HIP RIGHT 2 + VW dated | | 07/07/2014 12:39 PMHISTORY:Right Hip PainCOMPARISON: December 05, 2013.FINDINGS: Frontal | | view the pelvis and dedicated views of the right hip. Totalhip arthroplasty changes are | | present in the right hip. There is no evidence forinterval component related | | complication. There are moderate degenerativechanges seen in the left hip. | | Degenerative changes are partially seen in thelower lumbar spine. Soft tissues are | | unremarkable.IMPRESSION -Right total hip arthroplasty without evidence for interval | | complication.Degenerative changes in the left hip.Dictated and Signed by: Berlin Pruett | | MD Kristine Electronically signed: 07/07/2014 1:44 PM | |changes seen in the left hip. Degenerative changes are partially seen in the | |lower lumbar spine. Soft tissues are unremarkable. | | | |IMPRESSION - | | | |Right total hip arthroplasty without evidence for interval complication. | | | |Degenerative changes in the left hip. 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
--- NOTE | 2020-08-27 12:30 | NUR ---
PT GIVEN PO FLAGYL PER ORDER, EDUCATED TO TAKE FLAGYL WITH FOOD TO DECREASE RISK OF GI UPSET, PT VERBALIZED UNDERSTANDING. PT HAS NOT HAD BM SINCE THIS AM, AWAITING STOOL SAMPLE. PT DENIES OTHER NEEDS AT THIS TIME.
--- NOTE | 2020-08-27 13:48 | NUR ---
PATIENT RESTING IN BED. VITAL SIGNS AND I&O DONE. CALL LIGHT WITHIN REACH. NO OTHER NEEDS AT THIS TIME
--- NOTE | 2020-08-27 14:06 | NUR ---
PT MOTIONED ME TO COME BACK-SHE WAS ON THE PHONE. WILL CHECK BACK
--- NOTE | 2020-08-27 17:02 | NUR ---
PATIENT RESTING IN BED. VITAL SIGNS AND I&O DONE. WATER GIVEN. CALL LIGHT WITHIN REACH. NO OTHER NEEDS AT THIS TIME
--- NOTE | 2020-08-27 17:47 | NUR ---
PT STARTED ON PO FLAGYL FOR DIARRHEA, AWAITING STOOL SAMPLE FOR R/O CDIFF. PT ON ROOM AIR, LUNG SOUNDS CLEAR. TOLERATING SOFT DIET, WITHOUT NAUSEA, BOWEL TONES ACTIVE. PT INDEPENDENT IN ROOM. PAIN TOLERABLE WITHOUT NEED FOR MEDICATION. CMS INTACT. IV SALINE LOCKED. VOIDING QS.
--- NOTE | 2020-08-27 19:30 | NUR ---
REPORT RECEIVED FROM DIANA MONTELONGO. PT IN BED, ALERT AND ORIENTED. ON ROOM AIR. CALL LIGHT IN REACH. PT REPORTS NO NEEDS AT THIS TIME.
--- NOTE | 2020-08-27 20:46 | NUR ---
SCHEDULED MEDICATIONS ADMINISTERED, PRN REGLAN GIVEN. PT AMBULATED TO BR TO VOID, BACK TO BED. VS AND I/O'S COMPLETE. DRESSING TO MIDLINE INCISION C/D/I. BOWEL TONES ACTIVE. ON ROOM AIR. WATER REFRESHED. CALL LIGHT WITHIN REACH. NO FURTHER NEEDS AT THIS TIME.
--- NOTE | 2020-08-27 23:27 | NUR ---
ROUNDED ON PATIENT. PT AWAKE, LAYING IN BED WITH LIGHTS OFF. STATES NO PAIN, HAS NO NEEDS AT THIS TIME. CALL LIGHT WITHIN REACH. WILL CONTINUE TO MONITOR.
--- NOTE | 2020-08-28 00:51 | NUR ---
ROUNDED ON PATIENT, AWAKE IN BED, LIGHTS OFF. STATES NO NEEDS AT THIS TIME. DENIES PAIN OR NAUSEA. CALL LIGHT WITHIN REACH.
--- NOTE | 2020-08-28 05:35 | NUR ---
[facility] DOWNTIME. ROUNDED ON PATIENT, NO REQUESTS FOR PRN MEDICATION, STATES NO PAIN OR NAUSEA. HAS BEEN RESTING IN BED WITH LIGHTS OFF, STATES HAS NOT SLEPT WELL. WILL CONTINUE TO MONITOR.
--- NOTE | 2020-08-28 06:43 | NUR ---
[facility] THIS SHIFT. PT INDEPENDENT IN ROOM, AMBULATED TO TO VOID, STATES NO BM THIS SHIFT. REPORTS NO PAIN, NAUSEA. VSS. A+Ox4. ON ROOM AIR. LUNG SOUNDS CLEAR, BOWEL TONES ACTIVE. MIDLINE INCISION WNL, DRESSING C/D/I. ABD SOFT AND NONTENDER TO PALPATE, MILD DISTENTION. TOLERATING SOFT DIET. IV WNL. DISCUSSED WITH PATIENT PLAN OF CARE.
--- NOTE | 2020-08-28 06:43 | NUR ---
ASSESSMENT COMPLETE, VS AND I/O'S COMPLETE. YOGURT PROVIDED PER PT REQUEST. CALL LIGHT WITHIN REACH, NO OTHER NEEDS AT THIS TIME.
--- NOTE | 2020-08-28 07:21 | NUR ---
THIS RN RECEIVED REPORT FROM ALTA MONTELONGO. PT IS UP TO SHOWER THIS AM AND PUT FIRST MATE LIGHT TO ALERT STAFF THAT SHE HAD A BM- STOOL SAMPLE TO BE SENT THIS AM.
--- NOTE | 2020-08-28 07:48 | NUR ---
PATIENT SITTING UP IN BED. WHITE BOARD UPDATED. PATIENT'S STOOL SAMPLE SENT TO THE LAB. CALL LIGHT WITHIN REACH. NO OTHER NEEDS AT THIS TIME
--- NOTE | 2020-08-28 09:50 | NUR ---
PATIENT RESTING IN BED. RN AND STUDENT RN IN ROOM. VITAL SIGNS AND I&O DONE. CALL LIGHT WITHIN REACH. NO OTHER NEEDS AT THIS TIME
--- NOTE | 2020-08-28 10:27 | NUR ---
In room for rounding. Pt up to bathroom with СЕРГЕЙ Bowers. Pt ambulating well, steady gait, denies dizziness. Pt denies pain and nausea at this time. Pt reports no further needs at this time. Pt refuses up to chair, confirms willingness to get up to chair at lunch and shower time this afternoon. Pt left sitting up in bed, side rails up, call light within reach, bed alarm on.
[2020-08-28] MEDS ORDERED: METRONIDAZOLE250 MG PO (12:39)
[2020-08-28] MEDS ORDERED: ACETAMINOPHEN500 MG PO (12:40)
[2020-08-28] MEDS ORDERED: IBUPROFEN600 MG PO (12:40)
--- NOTE | 2020-08-28 12:51 | NUR ---
THIS RN IN PTS ROOM TO REMOVE PTS IV AND TAKE OFF SURGICAL INSCION DRESSING
== END 2020-08-28 13:30 | disposition home or self-care (01) | DRG 336 ==
LOC: ED 15:59 → MS 21:57 → CCU 21:57 → ED 21:57 → MS 08-21 00:57 → CCU 08-21 00:57 → MS 08-21 01:05
PROVIDERS: ADMIT Surgery; ATTEND Surgery
PROC: 0DNB0ZZ Release Ileum, Open Approach (ICD-10-PCS; principal; 2020-08-21)
PROC: 0DNA0ZZ Release Jejunum, Open Approach (ICD-10-PCS; 2020-08-21)
PROC: 3E0T3BZ Introduction of Anesthetic Agent into Peripheral Nerves and Plexi, Percutaneous Approach (ICD-10-PCS; 2020-08-21)
PROC: 3E0T33Z Introduction of Anti-inflammatory into Peripheral Nerves and Plexi, Percutaneous Approach (ICD-10-PCS; 2020-08-21)
DX: K56.50 Intestinal adhesions [bands], unspecified as to partial versus complete obstruction (principal); A04.72 Enterocolitis due to Clostridium difficile, not specified as recurrent; Z20.828 Contact with and (suspected) exposure to other viral communicable diseases; E87.6 Hypokalemia; G89.18 Other acute postprocedural pain; K56.7 Ileus, unspecified
CPT/HCPCS: 00790; 36415; 64488; 71045; 74018; 74177; 76942; 80048; 80053; 81001; 83605; 83690; 83735; 85025; 87040; 87493; 93005; 93010; 94760; 96361; 99285-25; J0131; J0330; J0690; J1100; J1644; J1790; J1885; J2001; J2185; J2405; J2550; J2704; J2765; J3475; J3480; J7030; J7121; Q9967

== ENCOUNTER 2021-01-30 18:03 | Emergency (ER) | payer MEDICARE, OTHER ==
[~2021-01-30] VITALS: Ht 170.2 cm; Wt 70.3 kg
[~2021-01-30 18:03] MED LIST: ACETAMINOPHEN500 MG PO; CALCIUM-MAG-ZI1 EACH PO; GLUCOSAMINE &1 EAC1 PO; IBUPROFEN600 MG PO; KELP150 MC1 PO; METRONIDAZOLE250 MG PO; MULTI VITAMIN1 EACH PO; POTASSIUM GLUCO90 MG PO; PYCNOGENOL PO; VITAMIN C1000 MG PO
== END 2021-01-31 00:42 | disposition home or self-care (01) ==
LOC: ED 18:03
DX: K52.9 Noninfective gastroenteritis and colitis, unspecified (principal)
CPT/HCPCS: 74177; 80053; 83690; 83735; 85025; 96360; 99284-25; J2405; J7030; Q9967

== ENCOUNTER 2021-04-01 11:21 | Emergency (ER) | payer MEDICARE, OTHER ==
[~2021-04-01] VITALS: Ht 170.2 cm; Wt 69.4 kg
[2021-04-01] MEDS ORDERED: BUDESONIDE EC3 MG PO (14:06)
== END 2021-04-01 14:28 | disposition home or self-care (01) ==
LOC: ED 11:21
DX: K92.2 Gastrointestinal hemorrhage, unspecified (principal); K52.832 Lymphocytic colitis; Z79.899 Other long term (current) drug therapy
CPT/HCPCS: 80053; 85025; 85610; 85730; 86850; 86900; 86901; 96374; 99285-25; C9113; J7040